=== PATIENT | male | born 1950 | race Caucasian/White ===

== ENCOUNTER 2017-01-11 13:41 | Observation (INO) ==
--- NOTE | 2017-01-11 13:58 | Emergency Department Note ---
General Adult HPI - General Chief complaint: Blood Pressure Problem Stated complaint: Low bp Source: patient, EMS, old records reviewed Mode of arrival: EMS - History of Present Illness HPI Narrative: This patient went to the emergency room in [place] because he was a little dizziness heart rate was up to 117. He had an aortic valve inserted through peripheral access in November. He is on both Coumadin and Plavix. He was noted in [place] to have guaiac positive stool he has no abdominal pain whatsoever. He is received saline resuscitation his blood pressure which was 80 systolic is now 120 systolic and his heart rate is under 100 and he feels much better. Onset (ago): hour(s) - Related Data Home Medications Medication Instructions Recorded Confirmed Amiodarone HCl [Cordarone] 1 each PO Q2D 01/11/17 01/11/17 Atorvastatin [Lipitor] 40 mg PO HS 01/11/17 01/11/17 Budesonide/Formoterol Fumarate 10.2 gm IH BID 01/11/17 01/11/17 [Symbicort 160-4.5 Mcg Inhaler] Carboxymethylcellulose Sodium 1 each OP DAILY 01/11/17 01/11/17 [Refresh Plus] Clopidogrel Bisulfate [Plavix] 75 mg PO DAILY 01/11/17 01/11/17 Digoxin [Lanoxin] 250 mcg PO DAILY 01/11/17 01/11/17 Finasteride [Proscar] 5 mg PO HS 01/11/17 01/11/17 Furosemide [Lasix] 40 mg PO DAILY 01/11/17 01/11/17 Gabapentin [Neurontin] 300 mg PO DAILY 01/11/17 01/11/17 Insulin Glargine, Human [Lantus] 20 unit SQ DAILY 01/11/17 01/11/17 Metoprolol Tartrate [Lopressor] 50 mg PO BID 01/11/17 01/11/17 Nitroglycerin [Nitrostat] 0.4 mg SL Q5M PRN 01/11/17 01/11/17 Oxybutynin Chloride [Ditropan Xl] 5 mg PO DAILY 01/11/17 01/11/17 Potassium Chloride [Kdur] 10 meq PO DAILY 01/11/17 01/11/17 Tamsulosin [Flomax] 0.4 mg PO HS 01/11/17 01/11/17 Warfarin [Coumadin] 5 mg PO DAILY 01/11/17 01/11/17 buPROPion [Wellbutrin] 100 mg PO BID 01/11/17 01/11/17 Allergies Allergy/AdvReac Type Severity Reaction Status Date / Time metformin Allergy Unknown GI Upset Verified 01/11/17 13:46 Review of Systems Constitutional: Denies: fever Eyes: Denies: eye pain ENT ED: Denies: ear pain Cardiovascular: Denies: chest pain Respiratory: Denies: cough Gastrointestinal: Denies: abdominal pain, nausea, vomiting Genitourinary: Denies: urgency Musculoskeletal: Denies: back pain Integumentary: Denies: rash Past Medical History - Past Medical History Medical history: Reports: coronary artery disease, valvular heart disease ( Aortic valve replacement) Surgical history ED: Reports: coronary bypass (CABG) (1993) Physical Exam - General Limitations: no limitations General appearance: alert, in no apparent distress - Head Head exam: atraumatic, normocephalic - Eye Eye exam: Present: normal appearance - ENT ENT exam: normal exam - Neck Neck exam: Present: normal inspection - Chest Chest inspection: Present: normal inspection - Respiratory Respiratory exam: Present: normal lung sounds bilaterally - Cardiovascular Cardiovascular exam: Present: regular rate, normal rhythm, normal heart sounds - Abdominal Exam Abdominal exam: Present: soft. Absent: distention, tenderness - Neurological Exam Neurological exam: Present: alert - Psychiatric Psychiatric exam: Present: normal affect - Skin Skin exam: Present: warm, dry Course Vital Signs Temperature 97.3 F 01/11/17 13:42 Pulse Rate 90 01/11/17 13:42 Respiratory Rate 18 01/11/17 13:42 Blood Pressure 125/75 01/11/17 13:42 Pulse Oximetry (%) 96 01/11/17 13:42 Temperature 97.3 F 01/11/17 13:45 Pulse Rate 70 01/11/17 15:01 Respiratory Rate 19 01/11/17 15:01 Blood Pressure 107/78 01/11/17 15:01 Pulse Oximetry (%) 98 01/11/17 15:01 Medical Decision Making - MDM Narrative Medical decision making narrative: Patient feels quite well now after hydration. However his hemoglobin has dropped from 90 7. 2:09 and 1/2 L of fluid. Discussed the case with the hospitalist and he will be admitted for observation to a telemetry floor. His pro time was only 20.1. - Lab Data Lab results reviewed: Yes I reviewed the patient's lab results. Result diagrams: 01/11/17 14:15 01/11/17 14:15 Lab Results 01/11/17 01/11/17 01/11/17 Range/Units 14:15 14:15 14:15 WBC 9.9 (4.5-11.0) K/mcL RBC 3.28 L (4.50-5.90) M/mcL Hgb 7.9 L (13.5-16.5) g/dL Hct 25.2 L (41.0-55.0) % MCV 76.9 L (80.0-100.0) fL MCH 24.3 L (26.0-34.0) pg MCHC 31.6 (31.0-36.0) g/dL RDW 17.9 H (11.5-14.5) % Plt Count 301 (140-440) K/mcL MPV 7.2 L (7.4-10.4) fL Gran % 72.0 (38.0-78.0) % Lymph % (Auto) 18.6 (15.5-49.0) % [place] % (Auto) 7.9 (1.0-12.0) % Eos % (Auto) 1.2 (0.0-7.0) % Baso % (Auto) 0.3 (0.0-2.0) % Gran # 7.1 (1.8-8.0) K/mcL Lymph # 1.8 (1.5-4.8) K/mcL [place] # 0.8 (0.1-0.9) K/mcL Eos # 0.1 (0.0-0.7) K/mcL Baso # 0 (0.0-0.3) K/mcL PT 20.1 H (11.9-14.5) sec INR 1.7 H (0.9-1.1) Sodium 136 (133-145) mmol/L Potassium 3.8 (3.3-5.1) mmol/L Chloride 101 (96-108) mmol/L Carbon Dioxide 21 L (22-30) mmol/L Anion Gap 14.0 (8-16) BUN 20 (8-23) mg/dl Creatinine 1.2 (0.7-1.2) mg/dl GFR Calculation 62 Glucose 209 H (70-105) mg/dL Calcium 7.9 L (8.6-10.4) mg/dl Total Bilirubin 0.2 (0.0-1.0) mg/dL AST 15 (0-37) U/l ALT 14 (0-40) U/l Alkaline Phosphatase 87 (39-117) U/L Total Protein 6.0 (5.9-8.4) gm/dL Albumin 3.6 (3.2-5.2) gm/dL Globulin 2.4 (2.2-3.7) gm/dL Albumin/Globulin Ratio 1.5 (1.0-2.3) Disposition Clinical Impression: Anemia, GI bleeding Disposition: Xfer As Outpt/Obs ([facility]) Condition: Good Referrals: Chicho Martel PA-C [Primary Care Provider] - Time of Disposition: 15:09
[2017-01-11] MEDS ORDERED: 0.9 % SODIUM CHLORIDE 1,000 ML IV ONE (14:02)
[2017-01-11 14:39] LABS: Basophils # (Auto) 0 K/mcL (0.0-0.3); Basophils % (Auto) 0.3 % (0.0-2.0); Eosinophils # (Auto) 0.1 K/mcL (0.0-0.7); Eosinophils % (Auto) 1.2 % (0.0-7.0); Lymphocytes # (Auto) 1.8 K/mcL (1.5-4.8); Lymphocytes % (Auto) 18.6 % (15.5-49.0); Mean Cell Volume 76.9 fL (80.0-100.0); Mean Corpuscular HGB Conc 31.6 g/dL (31.0-36.0); Mean Corpuscular Hemoglobin 24.3 pg (26.0-34.0); Monocytes # (Auto) 0.8 K/mcL (0.1-0.9); Monocytes % (Auto) 7.9 % (1.0-12.0); Platelet Count 301 K/mcL (140-440); RBC 3.28 M/mcL (4.50-5.90); Red Cell Distribution Width 17.9 % (11.5-14.5)
[2017-01-11 15:01] LABS: ALT/SGPT 14 U/l (0-40); Albumin 3.6 gm/dL (3.2-5.2); Albumin/Globulin Ratio 1.5 (1.0-2.3); Alkaline Phosphatase 87 U/L (39-117); Blood Urea Nitrogen 20 mg/dl (8-23)
[2017-01-11] MEDS ORDERED: IOPAMIDOL 100 ML BOTTLE IV ONE (15:56)
[2017-01-11] MEDS ORDERED: ONDANSETRON ODT 4 MG TABLET SL PRN (16:40)
[2017-01-11] MEDS ORDERED: MAGNESIUM HYDROXIDE 30 ML ORAL.SUSP PO PRN (16:40)
[2017-01-11] MEDS ORDERED: DEXTROSE 50% 50 ML VIAL IV PRN (16:40)
[2017-01-11] MEDS ORDERED: NITROGLYCERIN 0.4 MG TAB.SUBL SL PRN (16:40)
[2017-01-11] MEDS ORDERED: ACETAMINOPHEN 325 MG TABLET PO PRN (16:40)
[2017-01-11] MEDS ORDERED: ALBUTEROL SULFATE 2.5 MG/3 ML NEBULIZER NEB PRN (16:40)
[2017-01-11] MEDS ORDERED: POTASSIUM CHLORIDE 20 MEQ/10 ML VIAL IV ONE (17:01)
[2017-01-11] MEDS: POTASSIUM CHLORIDE 20 MEQ in 0.45 % SODIUM CHLORIDE 1,000 ML IV SCH (17:05)
--- NOTE | 2017-01-11 17:07 | Internal Med History&Physical ---
Medical - H&P: HPI Patient information: Note initiated : 01/11/17 at 4:43 pm Service Date, if different from initiated Date: [] Patient: Ozzy Fox 66 y/o M admitted on for Low bp. History of present illness: Mr. Fox is a 66 year old male with a history of diabetes, coronary disease, who is status post atrial valve replacement with a TAVR procedure in November of this year. he had that surgery with Dr. Ta at [place], and was placed on both Plavix and Coumadin afterwards. He reports they have been letting his INR range from 1-2. he says he has been using oxygen 3 L during the day, with exertion, for the last several months, due to his COPD. He is also been experiencingleg fatigue and weakness when he walks more than a few 100 feet.Today, when he awakened, he checked his blood pressure, and it was low at 86/54. He waited a while and then decided to take a nitroglycerin just in case it was a heart problem. When he took a follow-up blood pressureis blood pressure was about the same, but his heart rate had bumped up to 117. He was feeling lightheaded and dizzy this morning. His took him to the [place] ER where he was found to be hypotensive. He also was noted to have guaiac- positive stool, and a slight drop in his hemoglobin. He was transferred here for further evaluation. He otherwise denies feeling especially differentthan his new baseline, until this morning. He denies fevers or chills, headaches, new eye or ear symptoms sore throat. He has had a persistent somewhat barking coughfor about 3 months now, which has been attributed to his COPD. That is unchanged. He denies chest pain, heaviness, palpitations. He denies nausea or vomiting, diarrhea, or bright red blood per rectum. He says he has had some constipation, for which she uses milk of magnesia. He has not seen blood in any other body fluids. His chronic dysuria, and has trouble sensing when he has to go. he cannot recallif he has a history of GI bleeding, but reports he had his duodenum burst about one year ago, but does not think that is related to ulcers. Past medical history: Coronary artery disease, status post 4 way bypass in 1993 aortic valve stenosis, status post AVR with the TAPVR procedure,mechanical valve , November 2016 COPD, O2 dependent. Past history of ventricular tachycardia and perhaps atrial fibrillation. Reported duodenal rupture BPH Diabetes type 2 peripheral neuropathy Depression Hypertension? Current medications: There is a little uncertainty about diltiazem. Diltiazem 120 mg daily, generally gets routine medications from the [facility] [place] Wellbutrin 100 mg twice a day Warfarin 5 mg daily Plavix 75 mg daily oxybutynin 5 mg daily Tamsulosin 0.4 mg daily at bedtime Finasteride 5 mg daily at bedtime Carboxymethylcellulose drops daily Symbicort 1604.5 one inhalation twice a day Potassium 10 mEq daily Nitroglycerin sublingual when necessary Metoprolol 50 mg twice a day Lasix 40 mg daily Digoxin 250 g daily Atorvastatin 40 mg daily at bedtime Amiodarone, 200 mg,dose unclear, 2 daily Lantus 20 units subcutaneous every morning Gabapentin 300 mg every afternoon patient reports he also takes amitriptyline 10 mg daily at bedtime Oxygen 3 L continuous, while awake milk of magnesia when necessary Allergies: Metformin Family history:Mother with a lung problem, possibly COPD. Father at age 74 "of a broken heart" 6 months after his . 2 siblings are alive and well. Social history: The patient smokedfor approximately 60 pack years, and quit in 2005 He has not drunk alcohol for 30 years. He does occasionally smoke marijuana several times a week. He lives with his . He is retired from various jobs including [employer] he gets his [facility] the [facility]. 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 Medical - H&P: Meds Home Medications Medication Instructions Recorded Confirmed Type Amiodarone HCl [Cordarone] 1 each PO Q2D 01/11/17 01/11/17 History Atorvastatin [Lipitor] 40 mg PO HS 01/11/17 01/11/17 History Budesonide/Formoterol Fumarate 10.2 gm IH BID 01/11/17 01/11/17 History [Symbicort 160-4.5 Mcg Inhaler] Carboxymethylcellulose Sodium 1 each OP DAILY 01/11/17 01/11/17 History [Refresh Plus] Clopidogrel Bisulfate [Plavix] 75 mg PO DAILY 01/11/17 01/11/17 History Digoxin [Lanoxin] 250 mcg PO DAILY 01/11/17 01/11/17 History Finasteride [Proscar] 5 mg PO HS 01/11/17 01/11/17 History Furosemide [Lasix] 40 mg PO DAILY 01/11/17 01/11/17 History Gabapentin [Neurontin] 300 mg PO DAILY 01/11/17 01/11/17 History Insulin Glargine, Human [Lantus] 20 unit SQ DAILY 01/11/17 01/11/17 History Metoprolol Tartrate [Lopressor] 50 mg PO BID 01/11/17 01/11/17 History Nitroglycerin [Nitrostat] 0.4 mg SL Q5M PRN 01/11/17 01/11/17 History Oxybutynin Chloride [Ditropan Xl] 5 mg PO DAILY 01/11/17 01/11/17 History Potassium Chloride [Kdur] 10 meq PO DAILY 01/11/17 01/11/17 History Tamsulosin [Flomax] 0.4 mg PO HS 01/11/17 01/11/17 History Warfarin [Coumadin] 5 mg PO DAILY 01/11/17 01/11/17 History buPROPion [Wellbutrin] 100 mg PO BID 01/11/17 01/11/17 History Allergies Allergy/AdvReac Type Severity Reaction Status Date / Time metformin Allergy Mild GI Upset Verified 01/11/17 17:21 Medical - H&P: Exam - Constitutional Vitals: Temp Pulse Resp BP Pulse Ox 97.3 F 66 20 119/57 97 01/11/17 13:45 01/11/17 15:31 01/11/17 15:31 01/11/17 15:31 01/11/17 15:31 on exam, this is a very pale, elderly man, in no acute distress.Head: Normocephalic, atraumatic. Eyes: PERRLA, EOMI, anicteric. Conjunctiva are quite pale. Ears: TMs and canals are clear. Pharynx: Is clear. Teeth are in fair condition. Neck: Is supple, without obvious lymphadenopathy, JVD, thyromegaly. He does have carotid bruits bilaterally,harsh on the right. cardiac: Shows an irregularly irregular rhythm, with a 2 to 3/6 systolic ejection murmur heard throughout the precordium. I don't hear a definite valve click. No rubs or gallops are noted. there is a well-healed old vertical scar over his sternum. Lungs: Have slightly decreased breath sounds, but otherwise are clear to auscultation, without obvious rales, rhonchi, wheezes. Abdomen: Is soft and nontender, without obvious masses. Bowel sounds are normoactive. -rectal exam done in [place] showed guaiac positive stool. Extremities: Show no cyanosis, clubbing, edema. Pulses are palpable, but somewhat decreased. neurologic exam: Patient is alert and oriented 3. Exam is grossly nonfocal. Skin exam: Does not show any worrisome lesions. Medical - H&P: Reslt - Labs CBC & Chem 7: 01/11/17 14:15 01/11/17 14:15 Labs: Short CBC 01/11/17 Range/Units 14:15 WBC 9.9 (4.5-11.0) K/mcL Hgb 7.9 L (13.5-16.5) g/dL Hct 25.2 L (41.0-55.0) % Plt Count 301 (140-440) K/mcL BMP 01/11/17 14:15 Sodium 136 Potassium 3.8 Chloride 101 Carbon Dioxide 21 L BUN 20 Creatinine 1.2 Glucose 209 H Calcium 7.9 L Liver Function 01/11/17 Range/Units 14:15 Total Bilirubin 0.2 (0.0-1.0) mg/dL AST 15 (0-37) U/l ALT 14 (0-40) U/l Alkaline Phosphatase 87 (39-117) U/L Albumin 3.6 (3.2-5.2) gm/dL pro time is 20, INR 1.7 eKG done on on admission, shows atrial fibrillation at a rate of 88,with occasional aberrent complex LVH with repolarization abnormality. The atrial fibrillation is new January 11, 2017:[place] studies: eKG done in [place] today, shows sinus tachycardia at about 110, with slight ST depression noted in leads V5 V6, possibly repolarization. CBC from [facility]: CBC at 11:46 AM: White blood cell count 9000, hemoglobin 9.0, hematocrit 28.6 cMP showed glucose of 305 B1 24, creatinine 1.5 Troponinwas normal at 0.03 CK-MB was normal TSH is normal at 0.88Pro time was 17, INR 1.6 Medical - H&P: A/P (1) Atrial fibrillation Current visit: Yes Status: Acute (2) Anticoagulant long-term use Current visit: Yes Status: Acute (3) DM2 (diabetes mellitus, type 2) Current visit: Yes Status: Acute (4) COPD (chronic obstructive pulmonary disease) Current visit: Yes Status: Acute (5) CAD (coronary artery disease), [place] coronary artery Current visit: Yes Status: Acute (6) BPH (benign prostatic hyperplasia) Current visit: Yes Status: Acute (7) Depression Current visit: Yes Status: Acute (8) History of tobacco abuse Current visit: Yes Status: Acute (9) Microcytic anemia Current visit: Yes Status: Acute - Narrative A/P Narrative: #1. Hypotension and dizziness this patient presents with hypotension and tachycardia, which seemed to improve after IV hydration. Differential diagnosis includes dehydration, GI bleed with acute blood loss anemia, other acute cardiac or pulmonary event, medication side effect,acute infection. -the patient's blood pressure has stabilized since receiving IV fluids. -He is now admitted to telemetry/observation for monitoring. We will check every 4 hours hemoglobins, and monitor on telemetry.. After the next check, I will try to touch base with GI and cardiology,and to assess if we need to hold his anticoagulation, and to see whether he needs further GI workup. He is not having any obvious GI bleed presentation otherwise. -check d-dimer, BNP,troponin regarding sudden onset of hypotension, tachycardia , dizziness. #2. Cardiac. -Patient presents with atrial fibrillation which may be new, although he is unsure. Ideally, we will continue with warfarin therapy, and push that closer to a therapeutic level. However, since he is also on Plavix, I will need to review that with cardiology as well. -check screening troponin, BNP. -Monitor on telemetry. Currently rate is well controlled. -continue amiodarone. Check digoxin level. -continue atorvastatin. Hold Lasix for now. Resume warfarin and Plavix when able. Continue when necessary nitroglycerin. Continue metoprolol. 33. Microcytic anemia. per our old records previous H&H has been a low back in November 2014 but he did not have microcytosis at that time. His last colonoscopy was about 11 years ago. He also has a mechanical heart valve, so there is a possibility of shearing. He could also potentially have hemolysis. -Check iron levels also. tSH was normal today. #4. CODE STATUS: Full code. #5. DVT prophylaxis: We will likely continue Plavix and warfarin, after touching base with specialists. #6. Pulmonary. -this patient apparently has significant COPD, and is oxygen dependent. Add albuterol and budesonide nebs, when necessary. Continue oxygen when necessary. Check d-dimer, and view of his presentation. INR is also subtherapeutic. -this patient also has a fairly significant cough, for uncertain reason. We will check a chest x-ray. He may require pulmonary follow-up. 37. Endocrine. -Type 2 diabetes. This sounds well controlled. Continue Lantus, and add Accu- Cheks with when necessary sliding scale coverage. #8. Hypocalcemia.-Check ionized calcium. #9. BPH.Continue oxybutynin and tamsulosin and Proscar. 310. Neurologic. Continue gabapentin for peripheral neuropathy. 311. Psychiatric. -Continue Wellbutrin. This visit so far, has taken approximately 70 minutes, to review the patient's outside records, as well as our EMR records, interview and examine the patient order and review more tests, and write orders. I will also be placing calls to both GI and cardiology later today.
[2017-01-11] MEDS: PANTOPRAZOLE 40 MG VIAL IV SCH (17:32)
[2017-01-11] MEDS: INSULIN LISPRO 1 UNIT/0.01 ML UNIT SQ SCH ×2 (17:33→22:12)
[2017-01-11 17:46] LABS: Hemoglobin A1C 8.9 % HGB (4.0-6.0)
[2017-01-11 18:40] LABS: Ionized Calcium 1.09 mmol/L (1.16-1.32)
--- NOTE | 2017-01-11 20:48 | XRay Report ---
CLINICAL INFORMATION: Hypertension atrial fibrillation recent aortic valve replacement COMPARISON: 09/19/2016 FINDINGS: The heart is mildly enlarged, but unchanged. Aortic valve prosthesis in stable satisfactory position. Mediastinum and pulmonary vessels are normal. Lungs are clear. No effusions. IMPRESSION: Mild stable cardiomegaly - no acute disease Interpreted and Authenticated by: Chris Pack 01/11/17
[2017-01-11] MEDS ORDERED: BUDESONIDE 0.5 MG/2 ML AMPUL.NEB NEB SCH (21:00)
[2017-01-11] MEDS ORDERED: TAMSULOSIN 0.4 MG CAPSULE PO SCH (21:00)
[2017-01-11] MEDS ORDERED: ATORVASTATIN 20 MG TABLET PO SCH (21:00)
[2017-01-11] MEDS ORDERED: FINASTERIDE 5 MG TABLET PO SCH (21:00)
[2017-01-11] MEDS: BUDESONIDE 0.5 MG/2 ML AMPUL.NEB NEB SCH (21:43)
[2017-01-11] MEDS: METOPROLOL TARTRATE 50 MG TABLET PO SCH (22:13)
[2017-01-11] MEDS: buPROPion 100 MG TABLET PO SCH (22:26)
[2017-01-12] MEDS ORDERED: CALCIUM CHLORIDE 1,000 MG/10 ML SYRINGE IV ONE (02:17)
[2017-01-12] MEDS ORDERED: 0.9 % SODIUM CHLORIDE 250 ML IV SCH (02:30)
[2017-01-12 04:05] LABS: ALT/SGPT 12 U/l (0-40); Albumin 3.3 gm/dL (3.2-5.2); Albumin/Globulin Ratio 1.4 (1.0-2.3); Alkaline Phosphatase 80 U/L (39-117); Bilirubin,Direct < 0.2 mg/dL (0.0-0.3); Blood Urea Nitrogen 18 mg/dl (8-23); Gamma Glutamyl Transpeptidase 20 U/L (8-61); Magnesium 1.9 mg/dL (1.6-2.5); Uric Acid 4.9 mg/dL (2.5-8.0)
[2017-01-12] MEDS: PANTOPRAZOLE 40 MG VIAL IV SCH (08:12)
[2017-01-12] MEDS: METOPROLOL TARTRATE 50 MG TABLET PO SCH (08:36)
[2017-01-12] MEDS: INSULIN LISPRO 1 UNIT/0.01 ML UNIT SQ SCH ×3 (08:37→17:59)
[2017-01-12] MEDS ORDERED: EYE OP SCH (09:00)
[2017-01-12] MEDS ORDERED: CARBOXYMETHYLCELLULOSE SODIUM OP SCH (09:00)
[2017-01-12] MEDS ORDERED: OXYBUTYNIN CHLORIDE 5 MG TAB.XL.24H PO SCH (09:00)
[2017-01-12] MEDS ORDERED: FUROSEMIDE 40 MG TABLET PO SCH (09:00)
[2017-01-12] MEDS ORDERED: INSULIN GLARGINE, HUMAN 1 UNIT/0.01 ML SQ SCH (09:00)
[2017-01-12] MEDS ORDERED: POTASSIUM CHLORIDE 10 MEQ TABLET PO SCH (09:00)
[2017-01-12] MEDS ORDERED: GABAPENTIN 300 MG CAPSULE PO SCH (09:00)
[2017-01-12] MEDS ORDERED: AMIODARONE HCL 200 MG TABLET PO SCH (09:00)
[2017-01-12] MEDS: POTASSIUM CHLORIDE 20 MEQ in 0.45 % SODIUM CHLORIDE 1,000 ML IV SCH (09:26)
[2017-01-12] MEDS: BUDESONIDE 0.5 MG/2 ML AMPUL.NEB NEB SCH (09:32)
[2017-01-12] MEDS: buPROPion 100 MG TABLET PO SCH ×2 (10:04→18:00)
[2017-01-12] MEDS ORDERED: IRON SUCROSE COMPLEX 100 MG/5 ML VIAL IV ONE (10:21)
[2017-01-12] MEDS ORDERED: CALCIUM GLUCONATE 4.65 MEQ/10 ML VIAL IV ONE (12:21)
[2017-01-12] MEDS ORDERED: CALCIUM GLUCONATE 7 MEQ in DEXTROSE 5% IN WATER 50 ML IV ONE (13:00)
[2017-01-12] MEDS ORDERED: ACETAMINOPHEN 325 MG TABLET PO ONE (13:16)
[2017-01-12] MEDS ORDERED: DIGOXIN 125 MCG TABLET PO SCH (14:00)
--- NOTE | 2017-01-12 15:56 | Cat Scan Report ---
y mild emphysema is present in both upper lobes. There is thickening of the interlobular septa posteriorly in both upper lobes, right greater than left. Also subtle groundglass alveolar opacities posteriorly in the right upper lobe contiguous with the major fissure. Contiguous with the major fissure in the left side, in the superior segment of the left lower lobe there is a plaque-like 3 x 6 x 8 mm nodular density. This was not present on 10/16/16. This is probably focal inflammation or atelectasis. This is unlikely a neoplasm. No other suspicious mass is seen in either lung. There is mild thickening of the bronchi in both lower lobes and mild atelectasis is present in the posterior basal segments of both lower lobes. There is no pleural effusion. Patient has a prosthetic aortic valve. Calcified plaques in the coronary arteries and the patient's had prior coronary bypass surgery. Left ventricle is mildly dilated. The aorta is normal in caliber. There are scattered plaques along the wall. No adenopathy is present. Impression: No evidence of pulmonary emboli Mild emphysema and bronchitis ICU nurse was called with results Mild atelectasis posteriorly in the upper and lower lobes bilaterally. Atherosclerotic coronary artery disease and mild cardiomegaly Interpreted and Authenticated by: Joe Figueroa 01/12/17
--- NOTE | 2017-01-12 15:57 | XRay Report ---
HISTORY: Reason for Exam:hypotention, tachypnea FINDINGS: The lungs are clear. Heart is mildly enlarged. There is no congestive heart failure or pleural effusion. There is a prosthetic aortic valve. Coronary artery bypass surgery is been performed and there are clips in the mediastinum. There is no mediastinal widening or adenopathy. Comparison with the prior exam from 01/11/17 shows no significant change. IMPRESSION: No acute abnormality Interpreted and Authenticated by: Joe Figueroa 01/12/17
--- NOTE | 2017-01-12 18:15 | Discharge Summary ---
Medical - DS: Prov Patient information: Note initiated : 01/12/17 at 6:09 pm Service Date, if different from initiated Date: [] Patient: Ozzy Fox 66 y/o M admitted on 01/11/17 for Low bp. Chief Complaint: [] Date of admission: 01/11/17 15:55 Discharge date: 01/12/17 Primary care physician: Chicho Martel Admitting clinician: Teresa Baumann Consults: 01/12/17 02:35 Consult to Physician [CONS] Routine Comment: telephone consult: Consulting Provider: Vicente Tamayo Reason For Exam: Physician to Consult Attending physician on discharge: Teresa Baumann Medical - DS: Meds - Discharge Medications Prescriptions: Pantoprazole Sodium [Protonix] 40 mg PO QAMAC #30 tablet. Active and Home Medications: Home Medications Amiodarone HCl [Cordarone] 1 each PO Q2D 01/11/17 [History Confirmed 01/11/17 Last Taken Unknown] Atorvastatin [Lipitor] 40 mg PO HS 01/11/17 [History Confirmed 01/11/17 Last Taken Unknown] Budesonide/Formoterol Fumarate [Symbicort 160-4.5 Mcg Inhaler] 10.2 gm IH BID [History Confirmed 01/11/17 Last Taken Unknown] Carboxymethylcellulose Sodium [Refresh Plus] 1 each OP DAILY 01/11/17 [History Confirmed 01/11/17 Last Taken Unknown] Clopidogrel Bisulfate [Plavix] 75 mg PO DAILY 01/11/17 [History Confirmed Last Taken Unknown] Digoxin [Lanoxin] 250 mcg PO DAILY 01/11/17 [History Confirmed 01/11/17 Last Taken Unknown] Finasteride [Proscar] 5 mg PO HS 01/11/17 [History Confirmed 01/11/17 Last Taken Unknown] Furosemide [Lasix] 40 mg PO DAILY 01/11/17 [History Confirmed 01/11/17 Last Taken Unknown] Gabapentin [Neurontin] 300 mg PO DAILY 01/11/17 [History Confirmed 01/11/17 Last Taken Unknown] Insulin Glargine, Human [Lantus] 20 unit SQ DAILY 01/11/17 [History Confirmed Last Taken Unknown] Metoprolol Tartrate [Lopressor] 50 mg PO BID 01/11/17 [History Confirmed Last Taken Unknown] Nitroglycerin [Nitrostat] 0.4 mg SL Q5M PRN 01/11/17 [History Confirmed Last Taken Unknown] Oxybutynin Chloride [Ditropan Xl] 5 mg PO DAILY 01/11/17 [History Confirmed Last Taken Unknown] Potassium Chloride [Kdur] 10 meq PO DAILY 01/11/17 [History Confirmed 01/11/17 Last Taken Unknown] Tamsulosin [Flomax] 0.4 mg PO HS 01/11/17 [History Confirmed 01/11/17 Last Taken Unknown] Warfarin [Coumadin] 5 mg PO DAILY 01/11/17 [History Confirmed 01/11/17 Last Taken Unknown] buPROPion [Wellbutrin] 100 mg PO BID 01/11/17 [History Confirmed 01/11/17 Last Taken Unknown] Medical - DS: Hosp Hospital course: Mr. Fox is a 66 year old male January 11, 2017:History of present illness: Mr. Fox is a 66 year old male with a history of diabetes, coronary disease, who is status post atrial valve replacement with a TAVR procedure in November of this year. he had that surgery with Dr. Ta at [facility], and was placed on both Plavix and Coumadin afterwards. He reports they have been letting his INR range from 1-2. he says he has been using oxygen 3 L during the day, with exertion, for the last several months, due to his COPD. He is also been experiencingleg fatigue and weakness when he walks more than a few 100 feet.Today, when he awakened, he checked his blood pressure, and it was low at 86/54. He waited a while and then decided to take a nitroglycerin just in case it was a heart problem. When he took a follow-up blood pressureis blood pressure was about the same, but his heart rate had bumped up to 117. He was feeling lightheaded and dizzy this morning. His took him to the [facility] where he was found to be hypotensive. He also was noted to have guaiac- positive stool, and a slight drop in his hemoglobin. He was transferred here for further evaluation. He otherwise denies feeling especially differentthan his new baseline, until this morning. He denies fevers or chills, headaches, new eye or ear symptoms sore throat. He has had a persistent somewhat barking coughfor about 3 months now, which has been attributed to his COPD. That is unchanged. He denies chest pain, heaviness, palpitations. He denies nausea or vomiting, diarrhea, or bright red blood per rectum. He says he has had some constipation, for which she uses milk of magnesia. He has not seen blood in any other body fluids. His chronic dysuria, and has trouble sensing when he has to go. he cannot recallif he has a history of GI bleeding, but reports he had his duodenum burst about one year ago, but does not think that is related to ulcers. january 12: the patient was admitted and given IV fluids. Follow-up hemoglobin remained low, so the patient was transfused 2 units of packed red blood cells, based on his history of coronary disease. Hemoglobin is now up to 11, with hematocrit of 34, and has been stable since this morning. he has not had any signs of overt GI bleeding. He has not had dark stools or particularly soft stools,abdominal pain ,hematemesis. iron studies were done, and showed markedly low iron saturation of 4%, with normal TIBC. Iron level is still pending. BNP was mildly elevated at 558. Echocardiogram was not repeatedas I think this is due when he follows up with cardiology. d-dimer was positive, and since his Coumadin level was subtherapeutic on arrival , we did do a CT angiogram of the chest.his did not find evidence for PE. he patient states he is feeling much better, and stronger today. He is less short of breath. Hypotension has resolved. He does continue to have an intermittent barking type cough. On exam,vital signs are stable,with blood pressure of 145/65 O2 saturation is 92% on 2 L. Neck is supple without obvious JVD. Cardiac exam shows a slightly irregular rhythm, with 3/6 systolic ejection murmur. Valve click is heard today. Lungs have a few scattered crackles, but are otherwise clear.Abdomen is soft and nontender. Extremities show no edema. Neurologic exam is grossly nonfocal. assessment and plan: #1. Hypotension and dizziness this patient presents with hypotension and tachycardia, which resolved after IV hydration. e had significant anemia, but no obvious signs of active GI bleeding. hemoglobin has improved, and is stable, since being transfused 2 units of packed red blood cells. The patient also received IV iron as it appears his iron levels are extraordinarily low. #2. Cardiac. -Patient presents with atrial fibrillation which may be new, although he is unsure. Ideally, we will continue with warfarin therapy, and push that closer to a therapeutic level. However, since he is also on Plavix, and he will need cardiology follow-up to review these issues. -troponin was negative for acute cardiac event. EKG did show atrial fibrillation with a controlled rate. -continue amiodarone. -digoxin level was low at less than 0.3. Continue digoxin. -continue atorvastatin. resume other home medications. #3. Microcytic anemia. per our old records previous H&H has been a low back in November 2014 but he did not have microcytosis at that time. His last colonoscopy was about 11 years ago. He also has a mechanical heart valve, so there is a possibility of shearing. He could also potentially have hemolysis. - tSH was normal today. -GI follow-up. this case was reviewed with Dr. Duffy from GI and he will call to arrange follow-up this week. #4. CODE STATUS: Full code. #5. DVT prophylaxis: ontinue Plavix and warfarin. #6. Pulmonary. -this patient apparently has significant COPD, and is oxygen dependent. Add albuterol and budesonide nebs, when necessary. Continue oxygen when necessary. --dimer was positive, so CT angiogram was done. That does show COPD, but does not show PE. -this patient also has a fairly significant cough, for uncertain reason. We will check a chest x-ray. He may require pulmonary follow-up. 37. Endocrine. -Type 2 diabetes. This sounds well controlled. Continue Lantus, and add Accu- Cheks with when necessary sliding scale coverage. #8. Hypocalcemia.-Check ionized calcium. #9. BPH.Continue oxybutynin and tamsulosin and Proscar. 310. Neurologic. Continue gabapentin for peripheral neuropathy. 311. Psychiatric. -Continue Wellbutrin. #12. Ionized calcium level was low. Patient was given IV calcium gluconate. approximately 45 minutes was spent today, reviewing patient's test results, ordering blood, interviewing and examining the patient, reviewing his case with GI, and writing orders. Discharge diagnosis: hypotension and tachycardia,secondary to severe anemia Secondary discharge diagnosis: coronary disease, status post recent aortic valve replacement,long-term anticoagulation, heme positive stoolCOPD - Time Spent with Patient Total time spent providing and/or coordinating discharge services: Medical - DS: Exam - Constitutional Vitals: Vital Signs Temp Pulse Pulse Resp BP Pulse Ox 01/12/17 15:56 97.2 F 69 18 145/65 92 01/12/17 12:00 97.6 F 63 18 143/68 99 01/12/17 09:32 60 18 01/12/17 08:00 97.9 F 16 140/64 96 01/12/17 03:47 98.2 F 12 123/58 99 01/11/17 21:51 67 16 97 01/11/17 21:50 97 Intake and Output 01/12/17 01/12/17 01/12/17 05:59 13:59 21:59 Intake Total 297 / 297 1628 / 2308 423.2955 / 765.0537 Output Total 700 / 700 2300 / 2300 1350 / 1350 Balance -403 / -403 -672 / -672 -584.9463 / -584.9463 Intake: IV 1010 / 1010 65.0537 / 65.0537 Calcium Gluconate 7 Meq 65.0537 / 65.0537 In Dextrose 5% in Water 50 ml @ 130.107 mls/hr IV ONCE ONE Rx#:[id number] Potassium Chloride 20 Meq 1010 / 1010 In Sodium Chloride 0.45% 1,000 ml @ 75 mls/hr IV .[id number] [facility] Rx#: [id number] Oral 320 / 320 700 / 700 Blood Product 297 / 297 298 / 298 Output: Urine Catheter Amount 750 / 750 Void Amount 700 / 700 2300 / 2300 600 / 600 Other: Meal Breakfast Dinner Percent of Meal Consumed 100% 100% # Voids 2 Medical - DS: Data Labs on day of discharge: Labs from last 24 hours 01/12/17 01/12/17 01/12/17 17:33 10:57 02:54 Hgb 11.0 L Pending Hct 34.3 L Pending PT INR Sodium 135 Potassium 4.1 Chloride 103 Carbon Dioxide 22 Anion Gap 10.0 BUN 18 Creatinine 1.2 GFR Calculation 62 Glucose 217 H Uric Acid 4.9 Calcium 8.0 L Ionized Calcium Susan Phosphorus 3.5 Magnesium 1.9 Iron TIBC Unsat Iron Binding Transferrin % Sat Total Bilirubin 0.2 Direct Bilirubin < 0.2 GGT 20 AST 14 ALT 12 Alkaline Phosphatase 80 Lactate Dehydrogenase 223 Troponin T Total Protein 5.7 L Albumin 3.3 Globulin 2.4 Albumin/Globulin Ratio 1.4 Triglycerides 145 01/12/17 01/12/17 01/12/17 02:54 02:54 02:54 Hgb 10.4 L Hct 33.0 L PT 20.3 H INR 1.7 H Sodium Potassium Chloride Carbon Dioxide Anion Gap BUN Creatinine GFR Calculation Glucose Uric Acid Calcium Ionized Calcium Susan Phosphorus Magnesium Iron TIBC Unsat Iron Binding Transferrin % Sat Total Bilirubin Direct Bilirubin GGT AST ALT Alkaline Phosphatase Lactate Dehydrogenase Troponin T < 0.01 Total Protein Albumin Globulin Albumin/Globulin Ratio Triglycerides 01/11/17 01/11/17 17:43 17:43 Hgb Hct PT INR Sodium Potassium Chloride Carbon Dioxide Anion Gap BUN Creatinine GFR Calculation Glucose Uric Acid Calcium Ionized Calcium Susan 1.09 L Phosphorus Magnesium Iron TNP 16 L TIBC 321 Unsat Iron Binding TNP 305 Transferrin % Sat 4 L Total Bilirubin Direct Bilirubin GGT AST ALT Alkaline Phosphatase Lactate Dehydrogenase Troponin T Total Protein Albumin Globulin Albumin/Globulin Ratio Triglycerides ionized calcium level is low at 1.09 BNP was elevated at 558 Digoxin level was low at less than 0.3 nasal MRSA screen was positive. CT angiogram of the chest showed mild emphysema and both upper lobes, and ground glass alveolar opacities in the right upper lobe Prosthetic aortic valve is seen as well as calcified plaques in the coronary arteries. No pulmonary emboli were seen. There is mild atatelectasis posteriorly in the upper and lower lobes. EKG shows atrial fibrillation at a rate of 88. hest x-rayshowed mild cardiomegaly but no CHF. It did show prosthetic aortic valve. Also clips from previous bypass surgery. Medical - DS: A/P - Patient/Caregiver Discharge Instructions Activity: increase activity as tolerated, wear oxygen at all times Diet: Cardiac Additional Instructions: #1. you presented with severe anemia. We transfused 2 units of red blood cells He did test positive for blood in your stool. We would like you to follow upwith the subscription clerk, Dr. Vicente Duffy. His phone number is [phone], and his address is [address] [place] [address]. [address] and [facility]. You can call his office tomorrow, and tell his staff that he told me that he can probably get you in for endoscopy/colonoscopy on Thursday. #2. Continue current medications, including both the plavix and warfarin. however, please return if you have any signs of bleeding or recurrent low blood pressures, shortness of breath black tarry stools. I will also prescribe an ulcer medication,to help prevent/heal any stomach ulcers. #3.you also were in an irregular cardiac rhythm, called atrial fibrillation, when you arrived. Please follow-up with your heart doctor as soon as possible so he can evaluate if he wants to rearrange your medications. Prescriptions: Pantoprazole Sodium [Protonix] 40 mg PO QAMAC #30 tablet.dr - Problem Maintenance (1) Atrial fibrillation Status: Acute (2) Anticoagulant long-term use Status: Chronic (3) DM2 (diabetes mellitus, type 2) Status: Chronic (4) COPD (chronic obstructive pulmonary disease) Status: Chronic (5) CAD (coronary artery disease), [place] coronary artery Status: Chronic (6) BPH (benign prostatic hyperplasia) Status: Chronic (7) Depression Status: Chronic (8) History of tobacco abuse Status: Resolved (9) Microcytic anemia Status: Acute - Follow up Plan Follow up with: Chicho Martel PA-C [Primary Care Provider] - Vicente Tamayo MD [Physician] - Bunny Bolton MD [Physician] - Leif Ta [Referring] - Disposition: Home, Self-Care Prognosis: Good Rehab Potential: Good I certify that the patient requires SNF services: No Overall status at discharge: patient is progressing back to baseline Medical - DS: Qual - VTE Deep Vein Thrombosis/Pulmonary Embolism Present on Admission: No
== END 2017-01-12 19:05 | disposition home or self-care (01) ==
LOC: ED 13:41 → ICU 15:54 → INTOOBSV 18:06 → ICU 20:04
PROVIDERS: ADMIT Internal Medicine; ATTEND Internal Medicine

== ENCOUNTER 2018-07-18 10:55 | Inpatient (IN) ==
[2018-07-18] MEDS ORDERED: 0.9 % SODIUM CHLORIDE 1,000 ML IV ONE (11:03)
--- NOTE | 2018-07-18 11:33 | Emergency Department Note ---
GI Bleed HPI - General Chief complaint: Rectal Bleed Stated complaint: loose black stools, dizziness, low BP Time Seen by Provider: 07/18/18 11:25 Source: patient Mode of arrival: wheelchair Limitations: no limitations - History of Present Illness HPI Narrative: This patient woke up very dizzy today and has passed some black stools. He has no epigastric pain or tenderness but he did have a duodenal rupture 4 years ago. He had colonoscopy several months ago that was unremarkable. He does take Eliquis and has had a previous valve replacement. His list also include includes Plavix but is not clear that he is taking both Eliquis and Plavix. - Related Data Home Medications Medication Instructions Recorded Confirmed Amiodarone HCl [Cordarone] 1 each PO Q2D 01/11/17 07/14/18 Atorvastatin [Lipitor] 40 mg PO HS 01/11/17 07/14/18 Budesonide/Formoterol Fumarate 10.2 gm IH BID 01/11/17 07/14/18 [Symbicort 160-4.5 Mcg Inhaler] Carboxymethylcellulose Sodium 1 each OP DAILY 01/11/17 07/14/18 [Refresh Plus] Clopidogrel Bisulfate [Plavix] 75 mg PO DAILY 01/11/17 06/30/18 Digoxin [Lanoxin] 250 mcg PO DAILY 01/11/17 06/30/18 Finasteride [Proscar] 5 mg PO HS 01/11/17 07/14/18 Furosemide [Lasix] 40 mg PO DAILY 01/11/17 07/14/18 Gabapentin [Neurontin] 300 mg PO DAILY 01/11/17 07/14/18 Insulin Glargine, Human [Lantus] 20 unit SQ DAILY 01/11/17 07/14/18 Metoprolol Tartrate [Lopressor] 50 mg PO BID 01/11/17 07/14/18 Nitroglycerin [Nitrostat] 0.4 mg SL Q5M PRN 01/11/17 07/14/18 Oxybutynin Chloride [Ditropan Xl] 5 mg PO DAILY 01/11/17 07/14/18 Potassium Chloride [Kdur] 10 meq PO DAILY 01/11/17 06/30/18 Tamsulosin [Flomax] 0.4 mg PO HS 01/11/17 06/30/18 buPROPion [Wellbutrin] 100 mg PO BID 01/11/17 07/14/18 Apixaban [Eliquis] 10 mg PO DAILY 06/30/18 07/14/18 Previous Rx's Medication Instructions Recorded Accu-Chek 1 each FS ACHS strip 01/12/17 Pantoprazole Sodium [Protonix] 40 mg PO QAMAC #30 tablet. 01/12/17 Allergies Allergy/AdvReac Type Severity Reaction Status Date / Time metformin AdvReac Mild GI Upset Verified 07/18/18 10:58 Review of Systems All systems ED: reviewed and negative except as stated. Past Medical History - Past Medical History Medical history: Reports: atrial fibrillation, COPD, coronary artery disease, DM , valvular heart disease (Aortic valve replacement), other (DVT, duodenal rupture) Surgical history ED: Reports: appendectomy, coronary bypass (CABG) (1993) - Social History smoking status: Never smoker Physical Exam Limitations: no limitations General appearance: alert Head: atraumatic Eye: Present: normal appearance ENT: normal exam Neck: Present: normal inspection Chest: Present: normal inspection Respiratory: Present: normal lung sounds bilaterally Cardiovascular: Present: regular rate, normal rhythm, normal heart sounds Abdominal: Present: soft. Absent: distention, tenderness Rectal: Present: heme (+) stool, black stool Neurological: Present: alert Psychiatric: Present: normal affect, normal mood Skin: Present: warm, dry, intact Course Vital Signs Temperature 96.7 F L 07/18/18 10:56 Pulse Rate 57 L 07/18/18 10:56 Respiratory Rate 20 07/18/18 10:56 Blood Pressure 92/50 07/18/18 10:56 Pulse Oximetry (%) 99 07/18/18 10:56 Temperature 96.7 F L 07/18/18 10:56 Pulse Rate 57 L 07/18/18 12:34 Respiratory Rate 17 07/18/18 12:16 Blood Pressure 95/48 07/18/18 12:31 Pulse Oximetry (%) 96 07/18/18 12:34 GI Bleed - [facility] Narrative Medical decision making narrative: Patient's hemoglobin is 6.9 his blood pressure was still in the 90s after a liter of fluid so a second liter was started. Also started IV Protonix and an IV Protonix drip. I discussed the case with Dr. Yarbrough and Dr. Tati and the patient will be admitted to receive a 2 unit blood transfusion and then have endoscopy. Ironically the patient just had endoscopy last week with Dr. Chow. - Lab Data Lab results reviewed: Yes I reviewed the patient's lab results. Result diagrams: 07/18/18 11:03 07/18/18 11:03 Lab Results 07/18/18 07/18/18 Range/Units 11:03 11:03 WBC 10.4 (4.5-11.0) K/mcL RBC 2.91 L (4.50-5.90) M/mcL Hgb 6.9 L* (13.5-16.5) g/dL Hct 22.2 L (41.0-55.0) % POC Hct 22.0 L (41.0-55.0) % MCV 76.1 L (80.0-100.0) fL MCH 23.8 L (26.0-34.0) pg MCHC 31.3 (31.0-36.0) g/dL RDW 18.4 H (11.5-14.5) % Plt Count 272 (140-440) K/mcL MPV 8.4 (7.4-10.4) fL Gran % 78.8 H (38.0-78.0) % Lymph % (Auto) 13.4 L (15.5-49.0) % Rice % (Auto) 6.7 (1.0-12.0) % Eos % (Auto) 0.8 (0.0-7.0) % Baso % (Auto) 0.3 (0.0-2.0) % Gran # 8.2 H (1.8-8.0) K/mcL Lymph # (Auto) 1.4 L (1.5-4.8) K/mcL Rice # (Auto) 0.7 (0.1-0.9) K/mcL Eos # (Auto) 0.1 (0.0-0.7) K/mcL Baso # (Auto) 0 (0.0-0.3) K/mcL POC Sodium 136 (133-145) mmol/L Sodium 132 L (133-145) mmol/L POC Potassium 4.8 (3.3-5.1) mmol/L Potassium 5.0 (3.3-5.1) mmol/L POC Chloride 102 (96-108) mmol/L Chloride 96 (96-108) mmol/L Carbon Dioxide 15 L (22-30) mmol/L POC Total CO2 16 L (22-30) mmol/L Anion Gap 21.0 H (8-16) POC BUN 30 H (8-23) mg/dl BUN 33 H (8-23) mg/dl Creatinine 1.5 H (0.7-1.2) mg/dl POC Creatinine 1.4 H (0.7-1.2) mg/dl GFR Calculation 47 Glucose 430 H (70-105) mg/dL POC Glucose 417 H (70-105) mg/dL Calcium 8.8 (8.6-10.4) mg/dl POC WB Ioniz Calcium 1.16 (1.16-1.32) mmol/L Total Bilirubin 0.2 (0.0-1.0) mg/dL AST 16 (0-37) U/l ALT 13 (0-40) U/l Alkaline Phosphatase 82 (39-117) U/L Total Protein 6.1 (5.9-8.4) gm/dL Albumin 3.9 (3.2-5.2) gm/dL Globulin 2.2 (2.2-3.7) gm/dL Albumin/Globulin Ratio 1.8 (1.0-2.3) Disposition Pt seen by [facility]/PA only: No Clinical Impression: Upper GI bleed Disposition: Xfer As Inpt ([facility]) Condition: Fair Referrals: Jhonatan Heller MD [Primary Care Provider] - Time of Disposition: 12:52
[2018-07-18 12:03] LABS: Basophils # (Auto) 0 K/mcL (0.0-0.3); Basophils % (Auto) 0.3 % (0.0-2.0); Eosinophils # (Auto) 0.1 K/mcL (0.0-0.7); Eosinophils % (Auto) 0.8 % (0.0-7.0); Granulocytes % (Auto) 78.8 % (38.0-78.0); Lymphocytes # (Auto) 1.4 K/mcL (1.5-4.8); Lymphocytes % (Auto) 13.4 % (15.5-49.0); Mean Cell Volume 76.1 fL (80.0-100.0); Mean Corpuscular HGB Conc 31.3 g/dL (31.0-36.0); Mean Corpuscular Hemoglobin 23.8 pg (26.0-34.0); Monocytes # (Auto) 0.7 K/mcL (0.1-0.9); Monocytes % (Auto) 6.7 % (1.0-12.0); Platelet Count 272 K/mcL (140-440); RBC 2.91 M/mcL (4.50-5.90); Red Cell Distribution Width 18.4 % (11.5-14.5)
[2018-07-18] MEDS ORDERED: 0.9 % SODIUM CHLORIDE 250 ML IV SCH ×2 (12:15→15:57)
[2018-07-18 12:22] LABS: ALT/SGPT 13 U/l (0-40); Albumin 3.9 gm/dL (3.2-5.2); Albumin/Globulin Ratio 1.8 (1.0-2.3); Alkaline Phosphatase 82 U/L (39-117); Blood Urea Nitrogen 33 mg/dl (8-23)
[2018-07-18] MEDS ORDERED: PANTOPRAZOLE 40 MG VIAL IV ONE (12:48)
[2018-07-18] MEDS ORDERED: PANTOPRAZOLE 80 MG in 0.9 % SODIUM CHLORIDE 100 ML IV SCH ×2 (13:00→23:00)
[2018-07-18] MEDS ORDERED: LACTATED RINGERS 1,000 ML IV ONE (13:08)
[2018-07-18] MEDS ORDERED: LACTATED RINGERS 1,000 ML IV SCH (14:45)
--- NOTE | 2018-07-18 15:01 | Internal Med History&Physical ---
Medical - H&P: HPI Patient information: Note initiated : 07/18/18 at 2:55 pm Service Date, if different from initiated Date: [] Patient: Ozzy oFx a 68 y/o M admitted on for loose black stools, dizziness , low BP. Chief Complaint: light headed, dark stools History of present illness: Mr. Fox is a 68 year old M with a history of type 2 diabetes mellitus, paroxysmal atrial fibrillation (on Eliquis), coronary artery disease, peripheral arterial disease, chronic anemia who presents with lightheadedness and dark stools. Patient has been worked up for anemia in the last month. He had a colonoscopy on 07/01/2018 which was essentially normal. On 07/14/18 he had an EGD, which time he had a gastric polyp removed, also had biopsies looking for evidence of malabsorption or celiac. That was on Thursday. About Thursday the patient started developing dark stools that were "one cut above tar" in consistency. Subsequently he started feeling lightheaded over the last 2-3 days. This morning while in [employer] sitting up in a pew, was dizzy while at rest (lightheaded), and everyone commented that he was looking very pale. He had further dark stools while there, prior to presenting to the emergency department. In the emergency department, initial labs show hemoglobin of 6.9, he was heme positive. Further history, the patient takes Eliquis twice daily, he continued to take that during his endoscopy procedures. He also takes 81 mg aspirin daily. He does not use clopidogrel or other antiplatelet agents, does not use nonsteroidals. He does take 2 acetaminophen scheduled 3 times a day. Patient is being admitted for treatment of likely upper gastrointestinal hemorrhage with critical acute blood loss anemia. The patient has a history coronary disease, underwent 5 vessel bypass in 1993. He does get occasional angina, has not had any usual anginal symptoms and last 3 -4 days. Denies any chest tightness/squeezing/heaviness. He does get occasional shortness of breath. He's had no nausea, no vomiting, no hematemesis. He's felt crampy abdominal pains. He's had diarrhea/tarry stools as described. He's had normal urine output. No focal neurologic symptoms. He has mildly Eneida ejection fraction, echocardiogram most recently show an EF of 45-50%. He also underwent transcatheter aortic valve replacement with a bioprosthetic valve on 10/29/2016. He also complains of his legs "giving out" and being "rubbery" for the last several months. It appears he is being evaluated for peripheral arterial disease and does have significant stenoses on recent CT angiogram of the extremities. All systems: reviewed and no additional remarkable complaints except as stated Medical - H&P: H Medical history: Coronary artery disease, status post bypass 5 in 1993 Atrial fibrillation, paroxysmal, on Eliquis Aortic valvular disease, status post transcatheter aVR 10/2016 Type 2 diabetes mellitus Peripheral arterial disease with claudication COPD PTSD BPH History of ruptured duodenum about 5 years ago, treated at [facility] Surgical history: Coronary artery bypass grafting 1993 Transcatheter bioprosthetic AVR 10/29/2016 Repair of viscous rupture, partially 5 years ago Pertinent family history: No family history of GI disease Social history: The patient lives with his . He stopped smoking about 14 years ago. He has not drank alcohol in 20 years. Medical - H&P: Meds Home Medications Medication Instructions Recorded Confirmed Type Amiodarone HCl [Cordarone] 1 each PO Q2D 01/11/17 07/14/18 History Atorvastatin [Lipitor] 40 mg PO HS 01/11/17 07/14/18 History Budesonide/Formoterol Fumarate 10.2 gm IH BID 01/11/17 07/14/18 History [Symbicort 160-4.5 Mcg Inhaler] Carboxymethylcellulose Sodium 1 each OP DAILY 01/11/17 07/14/18 History [Refresh Plus] Clopidogrel Bisulfate [Plavix] 75 mg PO DAILY 01/11/17 06/30/18 History Digoxin [Lanoxin] 250 mcg PO DAILY 01/11/17 06/30/18 History Finasteride [Proscar] 5 mg PO HS 01/11/17 07/14/18 History Furosemide [Lasix] 40 mg PO DAILY 01/11/17 07/14/18 History Gabapentin [Neurontin] 300 mg PO DAILY 01/11/17 07/14/18 History Insulin Glargine, Human [Lantus] 20 unit SQ DAILY 01/11/17 07/14/18 History Metoprolol Tartrate [Lopressor] 50 mg PO BID 01/11/17 07/14/18 History Nitroglycerin [Nitrostat] 0.4 mg SL Q5M PRN 01/11/17 07/14/18 History Oxybutynin Chloride [Ditropan Xl] 5 mg PO DAILY 01/11/17 07/14/18 History Potassium Chloride [Kdur] 10 meq PO DAILY 01/11/17 06/30/18 History Tamsulosin [Flomax] 0.4 mg PO HS 01/11/17 06/30/18 History buPROPion [Wellbutrin] 100 mg PO BID 01/11/17 07/14/18 History Accu-Chek 1 each FS ACHS strip 01/12/17 07/14/18 Rx Pantoprazole Sodium [Protonix] 40 mg PO QAMAC #30 tablet. 01/12/17 07/14/18 Rx Apixaban [Eliquis] 10 mg PO DAILY 06/30/18 07/14/18 History Allergies Allergy/AdvReac Type Severity Reaction Status Date / Time metformin AdvReac Mild GI Upset Verified 07/18/18 10:58 Medical - H&P: Exam - Constitutional Vitals: Temp Pulse Resp BP Pulse Ox 96.7 F L 56 L 21 103/48 100 07/18/18 10:56 07/18/18 13:38 07/18/18 13:38 07/18/18 13:31 07/18/18 13:38 Exam: GENERAL: Alert, oriented, in no acute distress. Cooperative, appears stated age. HEENT: Atraumatic. PERRL, conjunctiva clear, no scleral icterus. Hearing grossly intact. Oropharynx with moist mucous membranes, tongue midline. NECK: Supple without meningismus, no thyromegaly RESPIRATORY: Breath sounds clear bilaterally without wheezes or rhonchi. Respiratory effort is unlabored. CARDIOVASCULAR: Regular rate and rhythm, no murmur gallop or rub. No peripheral edema. Carotid pulses 2+ without bruit. GI: Abdomen soft, nontender, no guarding or rebound. Bowel sounds are present. No hepatosplenomegaly. LYMPHATIC: No cervical or supraclavicular lymphadenopathy MUSCULOSKELETAL: No joint erythema or swelling, normal range of motion in all extremities. SKIN: Intact, warm, dry. No lesions. Skin turgor normal. NEUROLOGIC: Cranial nerves II through XII grossly intact. Muscle mass normal. Strength 5/5 in the upper and lower extremities. Sensation intact to light touch bilaterally. PSYCHIATRIC: Alert, oriented x3, normal mood and affect, normal insight. Medical - H&P: Reslt - Labs CBC & Chem 7: 07/18/18 11:03 07/18/18 11:03 Labs: Short CBC 07/18/18 Range/Units 11:03 WBC 10.4 (4.5-11.0) K/mcL Hgb 6.9 L* (13.5-16.5) g/dL Hct 22.2 L (41.0-55.0) % Plt Count 272 (140-440) K/mcL BMP 07/18/18 11:03 Sodium 132 L Potassium 5.0 Chloride 96 Carbon Dioxide 15 L BUN 33 H Creatinine 1.5 H Glucose 430 H Calcium 8.8 Liver Function 07/18/18 Range/Units 11:03 Total Bilirubin 0.2 (0.0-1.0) mg/dL AST 16 (0-37) U/l ALT 13 (0-40) U/l Alkaline Phosphatase 82 (39-117) U/L Albumin 3.9 (3.2-5.2) gm/dL - EKG Data EKG shows normal: sinus rhythm, ST-T waves Rate: normal Medical - H&P: A/P (1) Upper GI bleed Current visit: Yes Status: Acute - Narrative A/P Narrative: 68-year-old male presenting with melena, lightheadedness, found to be heme positive with critical anemia. Upper gastrointestinal hemorrhage. Suspect this is secondary to recent gastric polypectomy done on 07/14. Patient has been anticoagulated with Eliquis during this time period, also on low-dose aspirin. Unlikely to be gastritis, ulcer or other lesions given otherwise normal EGD last week. Plan: ICU admission Transfuse 2 units of packed red cells Follow H&H GI consultation for endoscopy, Dr. Tamayo notified by the ED Acid suppression with Protonix infusion Hold Eliquis, at this point we'll support with blood products, do not feel reversal agent needed as should be washing out in the next few hours Hold aspirin Acute blood loss anemia due to GI hemorrhage. Plan: As above Paroxysmal atrial fibrillation, on Eliquis for stroke prophylaxis. Currently in normal sinus rhythm. Plan: Monitor, hold anticoagulation Type 2 diabetes mellitus with hyperglycemia. On insulin therapy at home. Plan: Patient is in by mouth, every 6 hours Accu-Cheks with sliding scale insulin. Consider insulin drip if needed. COPD. Quiescent. Plan: Review and order home regimen. Coronary artery disease. No current evidence of coronary ischemia, no evidence of injury on EKG. Plan: Holding aspirin, will hold beta dwain given GI bleed, follow for evidence of ischemia. Prophylaxis: SCDs CODE STATUS: Full code
[2018-07-18] MEDS ORDERED: ONDANSETRON 4 MG/2 ML VIAL IV PRN (15:57)
[2018-07-18] MEDS ORDERED: DEXTROSE 50% 50 ML VIAL IV PRN (15:57)
[2018-07-18] MEDS ORDERED: DEXTROSE 31 GM ORAL.SUSP PO PRN (15:57)
[2018-07-18] MEDS ORDERED: ACETAMINOPHEN 650 MG SUPP.RECT PR PRN (15:57)
[2018-07-18] MEDS ORDERED: ACETAMINOPHEN 325 MG TABLET PO PRN (15:57)
[2018-07-18] MEDS: INSULIN LISPRO 1 UNIT/0.01 ML UNIT SQ SCH (16:19)
[2018-07-18] MEDS ORDERED: ALBUTEROL SULFATE 2.5 MG/3 ML NEBULIZER NEB PRN (17:59)
[2018-07-18] MEDS ORDERED: KETAMINE HCL 50 MG/ML ML IV PRN (18:30)
[2018-07-18] MEDS ORDERED: PROPOFOL 200 MG/20 ML VIAL IV SCH (18:30)
[2018-07-18] MEDS ORDERED: MIDAZOLAM 2 MG/2 ML VIAL IV SCH (18:30)
[2018-07-18] MEDS ORDERED: PROPOFOL 20 ML IV ONE (18:53)
[2018-07-18] MEDS ORDERED: MIDAZOLAM 2 MG/2 ML VIAL ONE (18:53)
[2018-07-18] MEDS ORDERED: TAMSULOSIN 0.4 MG CAPSULE PO SCH (21:00)
[2018-07-18] MEDS: buPROPion 100 MG TABLET PO SCH (21:18)
[2018-07-18] MEDS: FLUTICASONE/SALMETEROL 250/50 INHALER #14 INH SCH (21:19)
[2018-07-18] MEDS: 0.9 % SODIUM CHLORIDE 10 ML SYRINGE IV SCH (21:19)
[2018-07-18] MEDS: OXYBUTYNIN CHLORIDE 5 MG TAB.XL.24H PO SCH (21:19)
[2018-07-18] MEDS ORDERED: ZOLPIDEM 5 MG TABLET PO PRN (23:28)
[2018-07-18] MEDS ORDERED: ZOLPIDEM 5 MG TABLET ONE (23:42)
[2018-07-19] MEDS ORDERED: DEXTROSE 50% 50 ML VIAL IV PRN ×2 (03:08→10:42)
[2018-07-19] MEDS ORDERED: DEXTROSE 31 GM ORAL.SUSP PO ONE (03:10)
[2018-07-19] MEDS ORDERED: DEXTROSE 31 GM ORAL.SUSP PO PRN ×2 (03:37→10:42)
[2018-07-19] MEDS: INSULIN LISPRO 1 UNIT/0.01 ML UNIT SQ SCH ×4 (03:45→20:33)
[2018-07-19] MEDS: 0.9 % SODIUM CHLORIDE 10 ML SYRINGE IV SCH ×3 (05:25→20:34)
[2018-07-19 06:46] LABS: Basophils # (Auto) 0 K/mcL (0.0-0.3); Basophils % (Auto) 0.3 % (0.0-2.0); Eosinophils # (Auto) 0.2 K/mcL (0.0-0.7); Eosinophils % (Auto) 1.8 % (0.0-7.0); Granulocytes % (Auto) 72.5 % (38.0-78.0); Lymphocytes # (Auto) 1.5 K/mcL (1.5-4.8); Lymphocytes % (Auto) 16.4 % (15.5-49.0); Mean Cell Volume 76.9 fL (80.0-100.0); Mean Corpuscular HGB Conc 31.9 g/dL (31.0-36.0); Mean Corpuscular Hemoglobin 24.5 pg (26.0-34.0); Monocytes # (Auto) 0.8 K/mcL (0.1-0.9); Platelet Count 231 K/mcL (140-440); RBC 3.37 M/mcL (4.50-5.90); Red Cell Distribution Width 19.4 % (11.5-14.5)
[2018-07-19 07:04] LABS: ALT/SGPT 41 U/l (0-40); Albumin 3.7 gm/dL (3.2-5.2); Albumin/Globulin Ratio 1.7 (1.0-2.3); Alkaline Phosphatase 76 U/L (39-117); Bilirubin,Direct < 0.2 mg/dL (0.0-0.3); Blood Urea Nitrogen 23 mg/dl (8-23); Gamma Glutamyl Transpeptidase 38 U/L (8-61); Uric Acid 4.8 mg/dL (2.5-8.0)
[2018-07-19] MEDS ORDERED: INSULIN LISPRO 1 UNIT/0.01 ML UNIT SQ SCH (07:30)
--- NOTE | 2018-07-19 07:55 | Operative Note ---
DATE OF OPERATION: 07/18/2018 PREPROCEDURE DIAGNOSIS: Upper GI bleed secondary to duodenal ulcer versus polypectomy site. POSTPROCEDURE DIAGNOSIS: Recent upper GI bleed secondary to polypectomy site. PROCEDURE: Esophagogastroduodenoscopy with ''control of bleeding,'' resolution clip placed on presumed bleeding site. INSTRUMENT USED: Olympus EVELIN [id number] endoscope. SPECIMENS OBTAINED: None. Previous evaluation for CLOtest was done last week. I am uncertain of the results. INDICATIONS FOR PROCEDURE: The patient is a 68-year-old gentleman who I believe gets most of his care through the [place] facility. I believe his primary care provider is Dr. Jhonatan pantoja. The patient had an EGD by Dr. Hassan last week, so the endoscopy staff state. He did have a polyp removed from the fundus. It is possible this is the bleeding site. The patient did present to the ER feeling weak. Hemoglobin was down to 6.9. Blood pressure was a little low in the 90s. He responded well to IV fluids. He is on Eliquis. He did have black stool. He has had a CABG x4. He has had a previous history of perforated duodenum in the past. The patient has received 2 units of red blood cells. He is hemodynamically improved. Endoscopy is indicated. INFORMED CONSENT: The procedure was reviewed with the patient. The patient had no further questions and accepts the risks and benefits thereof. One of the risks that were discussed included . Additional risks that were also discussed included bleeding, reaction to medication, possible perforation and possible need for surgery. IV MEDICATIONS USED: Versed 2 and propofol 150. FINDINGS: ESOPHAGUS: Proximal and mid esophagus normal. Distal esophagus: There were an increased number of fine blood vessels which is consistent with, but not necessarily diagnostic of, reflux. EG JUNCTION: This was at 40 cm. This appeared fairly normal. STOMACH: Cardia normal. Fundus there was a scarred area and some petechia noted. This is the presumed polypectomy site. This was not actively bleeding at the time. However, this is the presumed bleeding site. Because of his significant bleeding and the fact he is on Eliquis-anticoagulation, I felt it philip to place a clip. This was accomplished. Body and antrum normal. PYLORUS: Normal. DUODENUM: This appeared normal. RECOMMENDATIONS: I have no objections to starting a diet beginning with clear to full liquid, advance to soft as tolerated. In about 2 to 4 weeks I would recommend checking the stool for occult blood. Given the patient's improvement and the endoscopic findings, I have no objections if he is discharged from the hospital in a day or 2 provided the hemoglobin is stable and he tolerates a diet satisfactory and there are no other medical problems that would suggest he needs to stay in the hospital longer. The patient states he is on a PPI medication. This should be continued, given his previous history. I believe currently is on a Protonix drip. This probably could be changed to p.o. PPI medication in the near future. SEDATION TIME: 19:000 to 19:40.Please refer to the preprocedure nurse's notes, procedure flowsheet, procedure record, and post-procedure assessment for details of the sedation including the pre-, intra-, and post-service work. CRD:kh Job ID: [id number] Doc ID: [id number] Vicente Pantoja MD
[2018-07-19] MEDS ORDERED: PANTOPRAZOLE 80 MG in 0.9 % SODIUM CHLORIDE 100 ML IV SCH ×2 (08:00→18:00)
--- NOTE | 2018-07-19 08:27 | Internal Med Progress Note ---
Medical - PN: Subj Patient information: Note initiated : 07/19/18 at 8:23 am Service Date, if different from initiated Date: [] Patient: Ozzy Fox a 68 y/o M admitted on 07/18/18 for loose black stools, dizziness, low BP. Chief Complaint: f/u GI bleed Interval history: 07/18 Mr. Fox is a 68 year old M with a history of type 2 diabetes mellitus, paroxysmal atrial fibrillation (on Eliquis), coronary artery disease, peripheral arterial disease, chronic anemia who presents with lightheadedness and dark stools. Patient has been worked up for anemia in the last month. He had a colonoscopy on 07/01/2018 which was essentially normal. On 07/14/18 he had an EGD, which time he had a gastric polyp removed, also had biopsies looking for evidence of malabsorption or celiac. That was on Thursday. About Thursday the patient started developing dark stools that were "one cut above tar" in consistency. Subsequently he started feeling lightheaded over the last 2-3 days. This morning while in [employer] sitting up in a pew, was dizzy while at rest (lightheaded), and everyone commented that he was looking very pale. He had further dark stools while there, prior to presenting to the emergency department. In the emergency department, initial labs show hemoglobin of 6.9, he was heme positive. Further history, the patient takes Eliquis twice daily, he continued to take that during his endoscopy procedures. He also takes 81 mg aspirin daily. He does not use clopidogrel or other antiplatelet agents, does not use nonsteroidals. He does take 2 acetaminophen scheduled 3 times a day. Patient is being admitted for treatment of likely upper gastrointestinal hemorrhage with critical acute blood loss anemia. 07/19 Patient is status post upper endoscopy, source of bleeding likely gastric polypectomy site. Clip was placed by Dr. Tamayo. Tolerating full liquid diet currently. Hemoglobin stable, slowly increasing. No complaints, no abdominal pain, no dyspnea, no chest pain. No nausea or vomiting. - Constitutional Vitals: Vital Signs Temp Pulse Resp BP Pulse Ox 99.1 F H 79 19 112/72 96 07/19/18 07:01 07/19/18 07:01 07/19/18 07:01 07/19/18 07:01 07/19/18 07:01 Period Temp Pulse Resp BP Sys/[place] Pulse Ox Last 24 Hr 96.7 F-99.1 F 52-90 13-22 90-127/42-97 91-100 Intake and Output 07/18/18 07/19/18 07/19/18 21:59 05:59 13:59 Intake Total 2359 / 2359 220 / 220 240 / 240 Output Total 300 / 300 1000 / 1000 350 / 350 Balance 2058 -780 / -780 -110 / -110 Weight 183 lb Intake & Output: Intake & Output 07/18/18 07/19/18 07/19/18 21:59 05:59 13:59 Intake Total 2359 / 2359 220 / 220 240 / 240 Output Total 300 / 300 1000 / 1000 350 / 350 Balance 2058 -780 / -780 -110 / -110 Weight 183 lb Intake: IV 1234 / 1234 100 / 100 Lactated Ringers 1,000 ml @ 125 1208 / 1208 mls/hr IV .Q8H [facility] Rx#: [id number] Oral 480 / 480 120 / 120 240 / 240 Blood Product 645 / 645 Output: Urine Catheter Amount 375 / 375 Void Amount 300 / 300 625 / 625 350 / 350 Other: Meal sherbet Percent of Meal Consumed 100% Urine Appearance Clear Clear Urine Color Bright Yellow Light Leyla Urine Odor Normal Exam: General: In bed in no acute distress Chest: Clear, unlabored Cardiovascular: Regular rate and rhythm with 1/6 systolic murmur at the lower left sternal border, no edema Abdomen: Soft, nontender with active bowel sounds Neuro: Alert, oriented 3, no acute distress. Medical - PN: Obj Da - Labs CBC & Chem 7: 07/19/18 03:55 07/19/18 03:55 Labs: Abnormal Lab Results 07/19/18 07/19/18 07/18/18 03:55 03:55 22:05 RBC 3.37 L Hgb 8.3 L 8.3 L Hct 25.9 L 25.5 L POC Hct MCV 76.9 L MCH 24.5 L RDW 19.4 H Gran % Lymph % (Auto) Gran # Lymph # (Auto) VBG Lactic Acid Sodium Carbon Dioxide 21 L POC Total CO2 Anion Gap POC BUN BUN Creatinine POC Creatinine Glucose 106 H POC Glucose Hemoglobin A1c ALT 41 H Lactate Dehydrogenase 300 H 07/18/18 07/18/18 07/18/18 18:05 12:32 12:32 RBC Hgb 8.0 L Hct 25.2 L POC Hct MCV MCH RDW Gran % Lymph % (Auto) Gran # Lymph # (Auto) VBG Lactic Acid 4.3 H* Sodium Carbon Dioxide POC Total CO2 Anion Gap POC BUN BUN Creatinine POC Creatinine Glucose POC Glucose Hemoglobin A1c 8.0 H ALT Lactate Dehydrogenase 07/18/18 07/18/18 11:03 11:03 RBC 2.91 L Hgb 6.9 L* Hct 22.2 L POC Hct 22.0 L MCV 76.1 L MCH 23.8 L RDW 18.4 H Gran % 78.8 H Lymph % (Auto) 13.4 L Gran # 8.2 H Lymph # (Auto) 1.4 L VBG Lactic Acid Sodium 132 L Carbon Dioxide 15 L POC Total CO2 16 L Anion Gap 21.0 H POC BUN 30 H BUN 33 H Creatinine 1.5 H POC Creatinine 1.4 H Glucose 430 H POC Glucose 417 H Hemoglobin A1c ALT Lactate Dehydrogenase Meds: Medications Acetaminophen (Tylenol) 650 mg HI Q4-6HP PRN PRN Reason: PAIN/FEVER > 101 Acetaminophen (Tylenol) 650 mg PO Q4-6HP PRN PRN Reason: PAIN/FEVER > 101 Albuterol Sulfate (Ventolin) 2.5 mg NEB Q4HP PRN PRN Reason: Wheezing Bupropion HCl (Wellbutrin) 100 mg PO BID [facility] Last Admin: 07/18/18 21:18 Dose: 100 mg Dextrose (Dextrose 50%) 0 ml IV UD PRN; Protocol PRN Reason: Hypoglycemia Diagnostic Test (Pha) (Accu-Chek) 1 each FS [facility] Last Admin: 07/19/18 07:16 Dose: 1 each Gabapentin (Neurontin) 300 mg PO DAILY [facility] Glucose (Insta-Glucose) 0 gm PO PRN PRN PRN Reason: Blood Sugar - Low Pantoprazole Sodium 80 mg/ (Sodium Chloride) 100 mls @ 10 mls/hr IV Q10H [facility] Insulin Glargine (Lantus) 20 unit SQ DAILY [facility] Insulin Human Lispro (Humalog) 0 unit SQ [facility]; Protocol Last Admin: 07/19/18 07:16 Dose: Not Given Ondansetron HCl (Zofran) 4 mg IV Q4-6HP PRN PRN Reason: Nausea And Vomiting Oxybutynin Chloride (Ditropan Xl) 5 mg PO BID [facility] Last Admin: 07/18/18 21:19 Dose: 5 mg Fluticasone/Salmeterol (Advair 250-50 Diskus) 1 puff INH BID [facility] Last Admin: 07/18/18 21:19 Dose: Not Given Sodium Chloride (Saline Flush) 10 ml IV Q8 [facility] Last Admin: 07/19/18 05:25 Dose: 10 ml Tamsulosin HCl (Flomax) 0.4 mg PO HS [facility] Last Admin: 07/18/18 21:19 Dose: 0.4 mg Zolpidem Tartrate (Ambien) 5 mg PO HSP PRN PRN Reason: Insomnia Last Admin: 07/18/18 23:34 Dose: 5 mg Medical - PN: A/P - Time Spent With Patient Total time spent is greater than 50% in coordination of care (as documented) at patient's floor/unit and/or counseling patient: 25 - 35 minutes (1) Upper GI bleed Status: Acute Current Visit: Yes - Narrative A/P Narrative: 68-year-old male presenting with melena, lightheadedness, found to be heme positive with critical anemia. Upper gastrointestinal hemorrhage. Likely secondary to recent gastric polypectomy done on 07/14, status post endoscopy and clipping. Hemorrhage complicated by anticoagulation with Eliquis for history of atrial fibrillation. Plan: Change to telemetry status, follow hemoglobin every 6 hours, continue full liquids, if tolerated advance to soft diet this afternoon. Continue to hold Eliquis. Mobilize. varnish remover to bolus dosing of PPI when this infusion bag over. Anticipate possible discharge in morning if remains stable. Acute blood loss anemia due to GI hemorrhage. Status post 2 units packed red blood cells Plan: As above Hypertension. Blood pressure normal. On amlodipine, diltiazem and every other day metoprolol. Those are being held. Plan: Monitor hemodynamics, add back antihypertensives as needed Paroxysmal atrial fibrillation, on Eliquis for stroke prophylaxis. Currently in normal sinus rhythm. Plan: Monitor, hold anticoagulation Type 2 diabetes mellitus with hyperglycemia. On insulin therapy at home. Plan: CBGs improved from admission. Continue with insulin therapy. COPD. Quiescent. Plan: Review and order home regimen. Coronary artery disease. No current evidence of coronary ischemia, no evidence of injury on EKG. Plan: Holding aspirin, will hold beta dwain given GI bleed, follow for evidence of ischemia. Medical - PN: Qual - Stroke Symptom Onset Unknown: No - VTE Deep Vein Thrombosis/Pulmonary Embolism Present on Admission: No
[2018-07-19] MEDS: OXYBUTYNIN CHLORIDE 5 MG TAB.XL.24H PO SCH ×2 (08:54→20:32)
[2018-07-19] MEDS: FLUTICASONE/SALMETEROL 250/50 INHALER #14 INH SCH (08:55)
[2018-07-19] MEDS ORDERED: GABAPENTIN 300 MG CAPSULE PO SCH (09:00)
[2018-07-19] MEDS ORDERED: INSULIN GLARGINE, HUMAN 1 UNIT/0.01 ML SQ SCH (09:00)
[2018-07-19] MEDS ORDERED: ONDANSETRON 4 MG/2 ML VIAL IV PRN (10:42)
[2018-07-19] MEDS ORDERED: ACETAMINOPHEN 650 MG SUPP.RECT PR PRN (10:42)
[2018-07-19] MEDS ORDERED: ZOLPIDEM 5 MG TABLET PO PRN (10:42)
[2018-07-19] MEDS: ALBUTEROL SULFATE 2.5 MG/3 ML NEBULIZER NEB PRN (14:20)
[2018-07-19] MEDS: Budesonide/Formoterol Fumarate [Symbicort] 160/4.5 mcg Inhaler INH SCH ×2 (17:21→20:33)
[2018-07-19] MEDS: buPROPion 100 MG TABLET PO SCH ×2 (18:00→20:34)
[2018-07-19] MEDS: ACETAMINOPHEN 325 MG TABLET PO PRN ×2 (19:37→23:58)
[2018-07-19] MEDS ORDERED: 0.9 % SODIUM CHLORIDE 500 ML IV ONE (19:59)
[2018-07-19] MEDS ORDERED: ASPIRIN 81 MG TAB.CHEW CHEWED ONE (20:07)
[2018-07-19] MEDS ORDERED: 0.9 % SODIUM CHLORIDE 1,000 ML IV SCH (20:15)
[2018-07-19] MEDS ORDERED: ASPIRIN 81 MG TAB.CHEW ONE (20:17)
[2018-07-19] MEDS ORDERED: NITROGLYCERIN 0.4 MG TAB.SUBL SL ONE (20:23)
[2018-07-19] MEDS: TAMSULOSIN 0.4 MG CAPSULE PO SCH (20:32)
[2018-07-19] MEDS ORDERED: FLUTICASONE/SALMETEROL 250/50 INHALER #14 INH SCH (21:00)
[2018-07-19 21:05] LABS: Basophils # (Auto) 0 K/mcL (0.0-0.3); Basophils % (Auto) 0.3 % (0.0-2.0); Eosinophils # (Auto) 0.2 K/mcL (0.0-0.7); Eosinophils % (Auto) 1.6 % (0.0-7.0); Granulocytes % (Auto) 74.6 % (38.0-78.0); Lymphocytes # (Auto) 1.5 K/mcL (1.5-4.8); Lymphocytes % (Auto) 13.9 % (15.5-49.0); Mean Cell Volume 76.8 fL (80.0-100.0); Mean Corpuscular HGB Conc 32.3 g/dL (31.0-36.0); Mean Corpuscular Hemoglobin 24.8 pg (26.0-34.0); Monocytes % (Auto) 9.6 % (1.0-12.0); Platelet Count 259 K/mcL (140-440); RBC 3.77 M/mcL (4.50-5.90)
[2018-07-19 21:32] LABS: Creatine Kinase 174 IU/L (24-195); Creatine Kinase MB 3.1 ng/ml (0-4.9)
[2018-07-20] MEDS: ALBUTEROL SULFATE 2.5 MG/3 ML NEBULIZER NEB PRN ×2 (03:22→11:13)
[2018-07-20] MEDS: ACETAMINOPHEN 325 MG TABLET PO PRN ×3 (03:23→16:37)
[2018-07-20] MEDS: NITROGLYCERIN 0.4 MG TAB.SUBL SL PRN ×2 (04:34→11:59)
[2018-07-20] MEDS: 0.9 % SODIUM CHLORIDE 10 ML SYRINGE IV SCH ×3 (05:10→20:34)
[2018-07-20 05:53] LABS: Basophils # (Auto) 0 K/mcL (0.0-0.3); Basophils % (Auto) 0.3 % (0.0-2.0); Eosinophils # (Auto) 0.1 K/mcL (0.0-0.7); Eosinophils % (Auto) 0.9 % (0.0-7.0); Granulocytes % (Auto) 75.5 % (38.0-78.0); Lymphocytes # (Auto) 1.5 K/mcL (1.5-4.8); Lymphocytes % (Auto) 13.4 % (15.5-49.0); Mean Cell Volume 77.3 fL (80.0-100.0); Mean Corpuscular HGB Conc 31.5 g/dL (31.0-36.0); Mean Corpuscular Hemoglobin 24.3 pg (26.0-34.0); Monocytes # (Auto) 1.1 K/mcL (0.1-0.9); Monocytes % (Auto) 9.9 % (1.0-12.0); Platelet Count 251 K/mcL (140-440); RBC 3.67 M/mcL (4.50-5.90); Red Cell Distribution Width 19.3 % (11.5-14.5)
[2018-07-20 06:25] LABS: Blood Urea Nitrogen 16 mg/dl (8-23)
[2018-07-20] MEDS: OXYBUTYNIN CHLORIDE 5 MG TAB.XL.24H PO SCH ×2 (08:27→20:34)
[2018-07-20] MEDS: PANTOPRAZOLE 40 MG TABLET PO SCH ×2 (08:29→16:37)
[2018-07-20] MEDS: INSULIN GLARGINE, HUMAN 1 UNIT/0.01 ML SQ SCH (08:29)
[2018-07-20] MEDS: GABAPENTIN 300 MG CAPSULE PO SCH (08:29)
[2018-07-20] MEDS: METOPROLOL TARTRATE 25 MG TABLET PO SCH (08:29)
[2018-07-20] MEDS: INSULIN LISPRO 1 UNIT/0.01 ML UNIT SQ SCH ×4 (08:30→20:34)
[2018-07-20] MEDS: DILTIAZEM 120 MG CAP.XL.24H PO SCH (08:31)
[2018-07-20] MEDS: Budesonide/Formoterol Fumarate [Symbicort] 160/4.5 mcg Inhaler INH SCH ×2 (08:32→20:35)
[2018-07-20] MEDS ORDERED: NITROGLYCERIN 0.4 MG TAB.SUBL SL PRN (10:31)
--- NOTE | 2018-07-20 10:32 | Internal Med Progress Note ---
Medical - PN: Subj Patient information: Note initiated : 07/20/18 at 10:29 am Service Date, if different from initiated Date: [] Patient: Ozzy Fox a 68 y/o M admitted on 07/18/18 for loose black stools, dizziness, low BP. Chief Complaint: [] Interval history: 07/18 Mr. Fox is a 68 year old M with a history of type 2 diabetes mellitus, paroxysmal atrial fibrillation (on Eliquis), coronary artery disease, peripheral arterial disease, chronic anemia who presents with lightheadedness and dark stools. Patient has been worked up for anemia in the last month. He had a colonoscopy on 07/01/2018 which was essentially normal. On 07/14/18 he had an EGD, which time he had a gastric polyp removed, also had biopsies looking for evidence of malabsorption or celiac. That was on Thursday. About Thursday the patient started developing dark stools that were "one cut above tar" in consistency. Subsequently he started feeling lightheaded over the last 2-3 days. This morning while in jehovah's witness sitting up in a pew, was dizzy while at rest (lightheaded), and everyone commented that he was looking very pale. He had further dark stools while there, prior to presenting to the emergency department. In the emergency department, initial labs show hemoglobin of 6.9, he was heme positive. Further history, the patient takes Eliquis twice daily, he continued to take that during his endoscopy procedures. He also takes 81 mg aspirin daily. He does not use clopidogrel or other antiplatelet agents, does not use nonsteroidals. He does take 2 acetaminophen scheduled 3 times a day. Patient is being admitted for treatment of likely upper gastrointestinal hemorrhage with critical acute blood loss anemia. 07/19 Patient is status post upper endoscopy, source of bleeding likely gastric polypectomy site. Clip was placed by Dr. Tamayo. Tolerating full liquid diet currently. Hemoglobin stable, slowly increasing. No complaints, no abdominal pain, no dyspnea, no chest pain. No nausea or vomiting. 07/20 patient in A. fib with RVR. No overnight events. No concerns per staff. Intermittent chest pain however cardiac enzymes negative. Hemoglobin stable at 8.9, cardiac enzymes negative. Possible discharge in 24 hours if adequate rate control achieved. Started on metoprolol/diltiazem - Constitutional Vitals: Vital Signs Temp Pulse Resp BP Pulse Ox 99.6 F H 102 H 18 97/61 100 07/20/18 07:30 07/20/18 09:16 07/20/18 09:16 07/20/18 09:16 07/20/18 09:16 Period Temp Pulse Resp BP Sys/[place] Pulse Ox Last 24 Hr 98.1 F-99.6 F 84-140 11-24 72-129/55-79 92-100 Intake and Output 07/19/18 07/20/18 07/20/18 21:59 05:59 13:59 Intake Total 1420 / 1420 700 / 700 Output Total 1200 / 1200 950 / 950 450 / 450 Balance 220 / 220 -250 / -250 -450 / -450 Weight 185 lb 9.6 oz Intake & Output: Intake & Output 07/19/18 07/20/18 07/20/18 21:59 05:59 13:59 Intake Total 1420 / 1420 700 / 700 Output Total 1200 / 1200 950 / 950 450 / 450 Balance 220 / 220 -250 / -250 -450 / -450 Weight 185 lb 9.6 oz Intake: IV 840 / 840 Sodium Chloride 0.9% 500 ml @ 500 / 500 Wide Open IV BOLUS ONE Rx#: [id number] Lactated Ringers 1,000 ml @ 125 251 / 251 mls/hr IV .Q8H [facility] Rx#: [id number] Protonix 80 mg In Sodium 89 / 89 Chloride 0.9% 100 ml @ 8 MG/HR 10 mls/hr IV Q10H [facility] Rx#: [id number] Oral 580 / 580 700 / 700 Output: Urine Catheter Amount 275 / 275 Void Amount 1200 / 1200 950 / 950 175 / 175 # of times incontinent of urine 0 / 0 Other: Meal Dinner Percent of Meal Consumed 100% 75% Feeding Ability Independent Urine Appearance Clear Clear Clear Urine Color Pale Bright Yellow Bright Yellow Urine Odor Normal Normal Strong # Voids 1 General appearance: no acute distress Exam: Nonlabored breathing A. fib RVR on telemetry Minimal anxiety nondistended abdomen Medical - PN: Obj Da - Labs CBC & Chem 7: 07/20/18 04:17 12 04:17 Labs: Abnormal Lab Results 07/20/18 07/20/18 07/19/18 04:17 04:17 20:42 WBC 11.3 H RBC 3.67 L 3.77 L Hgb 8.9 L 9.3 L Hct 28.3 L 28.9 L POC Hct MCV 77.3 L 76.8 L MCH 24.3 L 24.8 L RDW 19.3 H 19.0 H Gran % Lymph % (Auto) 13.4 L 13.9 L Gran # 8.5 H Lymph # (Auto) Tal[place]ferro # (Auto) 1.1 H 1.0 H VBG Lactic Acid Sodium Carbon Dioxide 20 L POC Total CO2 Anion Gap 17.0 H POC BUN BUN Creatinine POC Creatinine Glucose 119 H POC Glucose Hemoglobin A1c Calcium 8.5 L ALT Lactate Dehydrogenase 07/19/18 07/19/18 07/19/18 16:19 10:00 03:55 WBC RBC Hgb 8.6 L 8.9 L Hct 26.7 L 28.0 L POC Hct MCV MCH RDW Gran % Lymph % (Auto) Gran # Lymph # (Auto) Taliaferro # (Auto) VBG Lactic Acid Sodium Carbon Dioxide 21 L POC Total CO2 Anion Gap POC BUN BUN Creatinine POC Creatinine Glucose 106 H POC Glucose Hemoglobin A1c Calcium ALT 41 H Lactate Dehydrogenase 300 H 07/19/18 07/18/18 07/18/18 03:55 22:05 18:05 WBC RBC 3.37 L Hgb 8.3 L 8.3 L 8.0 L Hct 25.9 L 25.5 L 25.2 L POC Hct MCV 76.9 L MCH 24.5 L RDW 19.4 H Gran % Lymph % (Auto) Gran # Lymph # (Auto) Taliaferro # (Auto) VBG Lactic Acid Sodium Carbon Dioxide POC Total CO2 Anion Gap POC BUN BUN Creatinine POC Creatinine Glucose POC Glucose Hemoglobin A1c Calcium ALT Lactate Dehydrogenase 07/18/18 07/18/18 07/18/18 12:32 12:32 11:03 WBC RBC Hgb Hct POC Hct 22.0 L MCV MCH RDW Gran % Lymph % (Auto) Gran # Lymph # (Auto) Taliaferro # (Auto) VBG Lactic Acid 4.3 H* Sodium 132 L Carbon Dioxide 15 L POC Total CO2 16 L Anion Gap 21.0 H POC BUN 30 H BUN 33 H Creatinine 1.5 H POC Creatinine 1.4 H Glucose 430 H POC Glucose 417 H Hemoglobin A1c 8.0 H Calcium ALT Lactate Dehydrogenase 07/18/18 11:03 WBC RBC 2.91 L Hgb 6.9 L* Hct 22.2 L POC Hct MCV 76.1 L MCH 23.8 L RDW 18.4 H Gran % 78.8 H Lymph % (Auto) 13.4 L Gran # 8.2 H Lymph # (Auto) 1.4 L Taliaferro # (Auto) VBG Lactic Acid Sodium Carbon Dioxide POC Total CO2 Anion Gap POC BUN BUN Creatinine POC Creatinine Glucose POC Glucose Hemoglobin A1c Calcium ALT Lactate Dehydrogenase Meds: Medications Acetaminophen (Tylenol) 650 mg AR Q4-6HP PRN PRN Reason: PAIN/FEVER > 101 Acetaminophen (Tylenol) 650 mg PO Q4-6HP PRN PRN Reason: PAIN/FEVER > 101 Last Admin: 07/20/18 07:24 Dose: 650 mg Albuterol Sulfate (Ventolin) 2.5 mg NEB Q4HP PRN PRN Reason: Wheezing Last Admin: 07/20/18 03:22 Dose: 2.5 mg Bupropion HCl (Wellbutrin) 100 mg PO BID [facility] Last Admin: 07/19/18 20:34 Dose: Not Given Dextrose (Dextrose 50%) 0 ml IV UD PRN; Protocol PRN Reason: Hypoglycemia Diagnostic Test (Pha) (Accu-Chek) 1 each FS ACHS [facility] Last Admin: 07/20/18 07:15 Dose: 1 each Diltiazem HCl (Cardizem Cd) 120 mg PO DAILY [facility] Last Admin: 07/20/18 08:31 Dose: 120 mg Gabapentin (Neurontin) 300 mg PO DAILY [facility] Last Admin: 07/20/18 08:29 Dose: 300 mg Glucose (Insta-Glucose) 0 gm PO PRN PRN PRN Reason: Blood Sugar - Low Insulin Glargine (Lantus) 20 unit SQ DAILY [facility] Last Admin: 07/20/18 08:29 Dose: 20 unit Insulin Human Lispro (Humalog) 0 unit SQ ACHS [facility]; Protocol Last Admin: 07/20/18 08:30 Dose: 2 units Metoprolol Tartrate (Lopressor) 25 mg PO QDAY [facility] Last Admin: 07/20/18 08:29 Dose: 25 mg Nitroglycerin (Nitrostat) 0.4 mg SL Q5M PRN PRN Reason: Chest Pain Last Admin: 07/20/18 04:34 Dose: 0.4 mg Ondansetron HCl (Zofran) 4 mg IV Q4-6HP PRN PRN Reason: Nausea And Vomiting Oxybutynin Chloride (Ditropan Xl) 5 mg PO BID [facility] Last Admin: 07/20/18 08:27 Dose: 5 mg Pantoprazole Sodium (Protonix) 40 mg PO BIDAC [facility] Last Admin: 07/20/18 08:29 Dose: 40 mg Budesonide/Formoterol Fumarate [Symbicort] 160/4.5 Mcg Inhaler 1 dose INH BID [facility] Last Admin: 07/20/18 08:32 Dose: 1 dose Sodium Chloride (Saline Flush) 10 ml IV Q8 [facility] Last Admin: 07/20/18 05:10 Dose: 10 ml Tamsulosin HCl (Flomax) 0.4 mg PO HS [facility] Last Admin: 07/19/18 20:32 Dose: 0.4 mg Zolpidem Tartrate (Ambien) 5 mg PO HSP PRN PRN Reason: Insomnia Medical - PN: A/P - Time Spent With Patient Total time spent is greater than 50% in coordination of care (as documented) at patient's floor/unit and/or counseling patient: 25 - 35 minutes (1) Upper GI bleed Status: Acute Assessment and plan: * UGI bleed-secondary to polypectomy 07/14. Eliquis on hold. Hemoglobin stable. Possible discharge in 24 hours with resumption of Eliquis in 1 week * Blood loss anemia-status post 2 units transfusion. Clinically stable hemoglobin at 8.9 * History of A. fib continue metoprolol/diltiazem * History of hypertension -restart metoprolol diltiazem lisinopril and amlodipine * T2 DM on home insulin treatment * COPD continue bronchodilators * History of CAD new aspirin,Eliquis on hold continue beta-dwain TEMI inhibitor * Full code * Prophylaxis ambulation/SCDs PLAN * Continue rate control measures * Restart home medication for hypertension * Pre-existing medical condition management as above * Possible discharge in 24 hours Current Visit: Yes Medical - PN: Qual - Stroke Symptom Onset Unknown: No - VTE Deep Vein Thrombosis/Pulmonary Embolism Present on Admission: No
[2018-07-20] MEDS: buPROPion 100 MG TABLET PO SCH ×2 (10:37→21:14)
[2018-07-20] MEDS ORDERED: ALBUTEROL SULFATE 1 PUFF INHALER INH PRN (10:43)
[2018-07-20] MEDS ORDERED: BISACODYL 10 MG SUPP.RECT PR PRN (16:44)
[2018-07-20] MEDS ORDERED: MAGNESIUM HYDROXIDE 30 ML ORAL.SUSP PO PRN (16:44)
[2018-07-20] MEDS ORDERED: FLEETS ADULT ENEMA PR PRN (16:44)
[2018-07-20] MEDS: DOCUSATE SODIUM 100 MG CAPSULE PO SCH (20:34)
[2018-07-20] MEDS: MAGNESIUM OXIDE 400 MG TABLET PO SCH (20:34)
[2018-07-20] MEDS: TAMSULOSIN 0.4 MG CAPSULE PO SCH (20:34)
[2018-07-20] MEDS ORDERED: Budesonide/Formoterol Fumarate [Symbicort 160-4.5 MCG] Inhaler INH SCH (21:00)
[2018-07-21] MEDS: ACETAMINOPHEN 325 MG TABLET PO PRN ×4 (04:22→21:39)
[2018-07-21 05:36] LABS: Basophils # (Auto) 0 K/mcL (0.0-0.3); Basophils % (Auto) 0.1 % (0.0-2.0); Eosinophils # (Auto) 0 K/mcL (0.0-0.7); Eosinophils % (Auto) 0.1 % (0.0-7.0); Granulocytes % (Auto) 85.6 % (38.0-78.0); Lymphocytes # (Auto) 1.1 K/mcL (1.5-4.8); Lymphocytes % (Auto) 6.6 % (15.5-49.0); Mean Cell Volume 77.2 fL (80.0-100.0); Mean Corpuscular HGB Conc 32.4 g/dL (31.0-36.0); Monocytes # (Auto) 1.3 K/mcL (0.1-0.9); Monocytes % (Auto) 7.6 % (1.0-12.0); Platelet Count 275 K/mcL (140-440); Red Cell Distribution Width 19.4 % (11.5-14.5)
[2018-07-21] MEDS: 0.9 % SODIUM CHLORIDE 10 ML SYRINGE IV SCH ×4 (06:00→21:38)
[2018-07-21 06:01] LABS: ALT/SGPT 24 U/l (0-40); Albumin 3.6 gm/dL (3.2-5.2); Albumin/Globulin Ratio 1.4 (1.0-2.3); Alkaline Phosphatase 94 U/L (39-117); Bilirubin,Direct < 0.2 mg/dL (0.0-0.3); Blood Urea Nitrogen 17 mg/dl (8-23); Gamma Glutamyl Transpeptidase 31 U/L (8-61); Uric Acid 3.6 mg/dL (2.5-8.0)
[2018-07-21] MEDS: PANTOPRAZOLE 40 MG TABLET PO SCH ×2 (06:37→16:52)
[2018-07-21] MEDS: INSULIN LISPRO 1 UNIT/0.01 ML UNIT SQ SCH ×4 (06:53→21:37)
[2018-07-21] MEDS: INSULIN GLARGINE, HUMAN 1 UNIT/0.01 ML SQ SCH (08:19)
[2018-07-21] MEDS: GABAPENTIN 300 MG CAPSULE PO SCH (08:19)
[2018-07-21] MEDS: DOCUSATE SODIUM 100 MG CAPSULE PO SCH ×2 (08:19→21:38)
[2018-07-21] MEDS: METOPROLOL TARTRATE 25 MG TABLET PO SCH (08:19)
[2018-07-21] MEDS: ASPIRIN 81 MG TAB.CHEW PO SCH (08:19)
[2018-07-21] MEDS: MAGNESIUM OXIDE 400 MG TABLET PO SCH ×2 (08:19→21:36)
[2018-07-21] MEDS: Budesonide/Formoterol Fumarate [Symbicort] 160/4.5 mcg Inhaler INH SCH ×2 (08:20→21:38)
[2018-07-21] MEDS ORDERED: DILTIAZEM 120 MG CAP.XL.24H PO SCH (09:00)
[2018-07-21] MEDS ORDERED: LISINOPRIL 20 MG TABLET PO SCH (09:00)
[2018-07-21] MEDS ORDERED: IOPAMIDOL 100 ML BOTTLE IV ONE (09:17)
--- NOTE | 2018-07-21 09:29 | Cat Scan Report ---
CLINICAL INFORMATION: Chest pain, elevated white blood cell count, dizziness and hypertension COMPARISON: 01/12/17 TECHNIQUE:100 cc of Optiray 320 were injected intravenously, and 20 seconds later, 2.5 mm helical slices were obtained from the lung apices through the bases. Following reconstruction, 2.5 mm sagittal, coronal and axial reformations were processed. The exam was reviewed at lung, mediastinal and bone window. 7 mm axial MIPS were also obtained the radiation exposure was limited using dose reduction technology. FINDINGS: Mild emphysema is present in both lungs, predominantly involving the upper lobes. Contiguous with the major fissure in the superior segment of the left lower lobe there are two contiguous nodular densities which have a linear orientation. It measures approximately 3 x 6 6 mm in size. These are unchanged in the prior CT and probably represents scar tissue. There are very small bilateral pleural effusions, right greater than left. Adjacent to the pleural fluid there is mild atelectasis in the basilar segments of both lower lobes, right greater than left. There is no lobar consolidation or suspicious lung mass. Pulmonary arteries are normal without evidence of emboli. The aorta is normal in caliber. There are scattered plaques in the aorta and coronary arteries. The patient had prior coronary bypass surgery. Heart is mildly enlarged but has remained stable. Incidentally noted is a 3 mm stone in the gallbladder. IMPRESSION: Mild emphysema Mild bibasilar atelectasis and small bilateral pleural effusions Interpreted and Authenticated by: Joe Figueroa 07/21/18
[2018-07-21] MEDS ORDERED: MAGNESIUM CITRATE 300 ML ORAL.SOL PO ONE (09:44)
[2018-07-21] MEDS: buPROPion 100 MG TABLET PO SCH ×2 (09:47→21:36)
[2018-07-21] MEDS: FUROSEMIDE 20 MG TABLET PO SCH (09:47)
[2018-07-21] MEDS: DILTIAZEM 120 MG CAP.XL.24H PO SCH (09:47)
[2018-07-21] MEDS: OXYBUTYNIN CHLORIDE 5 MG TAB.XL.24H PO SCH ×2 (09:47→21:36)
[2018-07-21] MEDS: amLODIPine 5 MG TABLET PO SCH (09:48)
--- NOTE | 2018-07-21 10:38 | Internal Med Progress Note ---
Medical - PN: Subj Patient information: Note initiated : 07/21/18 at 10:35 am Service Date, if different from initiated Date: [] Patient: Ozzy Fox a 68 y/o M admitted on 07/18/18 for loose black stools, dizziness, low BP. Chief Complaint: [] Interval history: 07/18 Mr. Fox is a 68 year old M with a history of type 2 diabetes mellitus, paroxysmal atrial fibrillation (on Eliquis), coronary artery disease, peripheral arterial disease, chronic anemia who presents with lightheadedness and dark stools. Patient has been worked up for anemia in the last month. He had a colonoscopy on 07/01/2018 which was essentially normal. On 07/14/18 he had an EGD, which time he had a gastric polyp removed, also had biopsies looking for evidence of malabsorption or celiac. That was on Thursday. About Thursday the patient started developing dark stools that were "one cut above tar" in consistency. Subsequently he started feeling lightheaded over the last 2-3 days. This morning while in gnosticism sitting up in a pew, was dizzy while at rest (lightheaded), and everyone commented that he was looking very pale. He had further dark stools while there, prior to presenting to the emergency department. In the emergency department, initial labs show hemoglobin of 6.9, he was heme positive. Further history, the patient takes Eliquis twice daily, he continued to take that during his endoscopy procedures. He also takes 81 mg aspirin daily. He does not use clopidogrel or other antiplatelet agents, does not use nonsteroidals. He does take 2 acetaminophen scheduled 3 times a day. Patient is being admitted for treatment of likely upper gastrointestinal hemorrhage with critical acute blood loss anemia. 07/19 Patient is status post upper endoscopy, source of bleeding likely gastric polypectomy site. Clip was placed by Dr. Tamayo. Tolerating full liquid diet currently. Hemoglobin stable, slowly increasing. No complaints, no abdominal pain, no dyspnea, no chest pain. No nausea or vomiting. 07/20 patient in A. fib with RVR. No overnight events. No concerns per staff. Intermittent chest pain however cardiac enzymes negative. Hemoglobin stable at 8.9, cardiac enzymes negative. Possible discharge in 24 hours if adequate rate control achieved. Started on metoprolol/diltiazem 07/21-patient clinically deteriorating with worsening white count at 16.5 up from 11.3, intermittent right-sided chest pain and persistent atrial fibrillation. CT angiogram chest today. Hemoglobin stable. Check UA/blood cultures. Continue evaluation for leukocytosis. Continue telemetry monitoring. Rate control measures including diltiazem/metoprolol. - Constitutional Vitals: Vital Signs Temp Pulse Resp BP Pulse Ox 98.2 F 146 H 16 96/70 94 07/21/18 06:54 07/21/18 06:54 07/21/18 07:06 07/21/18 07:06 07/21/18 07:06 Period Temp Pulse Resp BP Sys/[place] Pulse Ox Last 24 Hr 98.2 F-101.0 F 116-146 16-27 75-118/55-79 88-98 Intake and Output 07/20/18 07/21/18 07/21/18 21:59 05:59 13:59 Intake Total 360 / 360 200 / 200 Output Total 550 / 550 525 / 525 150 / 150 Balance -190 / -190 -325 / -325 -150 / -150 Weight 182 lb 8 oz Intake & Output: Intake & Output 07/20/18 07/21/18 07/21/18 21:59 05:59 13:59 Intake Total 360 / 360 200 / 200 Output Total 550 / 550 525 / 525 150 / 150 Balance -190 / -190 -325 / -325 -150 / -150 Weight 182 lb 8 oz Intake: Oral 360 / 360 200 / 200 Output: Urine Catheter Amount 150 / 150 Void Amount 550 / 550 375 / 375 150 / 150 Other: Meal Dinner Percent of Meal Consumed 75% Feeding Ability Independent Urine Appearance Clear Clear Clear Urine Color Bright Yellow Dark Yellow Light Leyla Urine Odor Normal Normal Strong # Voids 1 General appearance: no acute distress Exam: Appears anxious Nonlabored breathing Afibrillation RVR on telemetry No abdominal distention Medical - PN: Obj Da - Labs CBC & Chem 7: 07/21/18 04:23 07/21/18 04:23 Labs: Abnormal Lab Results 07/21/18 07/21/18 07/20/18 04:23 04:23 04:17 WBC 16.5 H RBC 3.70 L Hgb 9.3 L Hct 28.6 L POC Hct MCV 77.2 L MCH 25.0 L RDW 19.4 H Gran % 85.6 H Lymph % (Auto) 6.6 L Gran # 14.2 H Lymph # (Auto) 1.1 L Potter # (Auto) 1.3 H VBG Lactic Acid Sodium Carbon Dioxide 20 L 20 L POC Total CO2 Anion Gap 17.0 H POC BUN BUN Creatinine POC Creatinine Glucose 119 H POC Glucose Hemoglobin A1c Calcium 8.5 L 8.5 L ALT Lactate Dehydrogenase 300 H 07/20/18 07/19/18 07/19/18 04:17 20:42 16:19 WBC 11.3 H RBC 3.67 L 3.77 L Hgb 8.9 L 9.3 L 8.6 L Hct 28.3 L 28.9 L 26.7 L POC Hct MCV 77.3 L 76.8 L MCH 24.3 L 24.8 L RDW 19.3 H 19.0 H Gran % Lymph % (Auto) 13.4 L 13.9 L Gran # 8.5 H Lymph # (Auto) Potter # (Auto) 1.1 H 1.0 H VBG Lactic Acid Sodium Carbon Dioxide POC Total CO2 Anion Gap POC BUN BUN Creatinine POC Creatinine Glucose POC Glucose Hemoglobin A1c Calcium ALT Lactate Dehydrogenase 07/19/18 07/19/18 07/19/18 10:00 03:55 03:55 WBC RBC 3.37 L Hgb 8.9 L 8.3 L Hct 28.0 L 25.9 L POC Hct MCV 76.9 L MCH 24.5 L RDW 19.4 H Gran % Lymph % (Auto) Gran # Lymph # (Auto) Potter # (Auto) VBG Lactic Acid Sodium Carbon Dioxide 21 L POC Total CO2 Anion Gap POC BUN BUN Creatinine POC Creatinine Glucose 106 H POC Glucose Hemoglobin A1c Calcium ALT 41 H Lactate Dehydrogenase 300 H 07/18/18 07/18/18 07/18/18 22:05 18:05 12:32 WBC RBC Hgb 8.3 L 8.0 L Hct 25.5 L 25.2 L POC Hct MCV MCH RDW Gran % Lymph % (Auto) Gran # Lymph # (Auto) Potter # (Auto) VBG Lactic Acid Sodium Carbon Dioxide POC Total CO2 Anion Gap POC BUN BUN Creatinine POC Creatinine Glucose POC Glucose Hemoglobin A1c 8.0 H Calcium ALT Lactate Dehydrogenase 07/18/18 07/18/18 07/18/18 12:32 11:03 11:03 WBC RBC 2.91 L Hgb 6.9 L* Hct 22.2 L POC Hct 22.0 L MCV 76.1 L MCH 23.8 L RDW 18.4 H Gran % 78.8 H Lymph % (Auto) 13.4 L Gran # 8.2 H Lymph # (Auto) 1.4 L Potter # (Auto) VBG Lactic Acid 4.3 H* Sodium 132 L Carbon Dioxide 15 L POC Total CO2 16 L Anion Gap 21.0 H POC BUN 30 H BUN 33 H Creatinine 1.5 H POC Creatinine 1.4 H Glucose 430 H POC Glucose 417 H Hemoglobin A1c Calcium ALT Lactate Dehydrogenase Meds: Medications Acetaminophen (Tylenol) 650 mg MT Q4-6HP PRN PRN Reason: PAIN/FEVER > 101 Acetaminophen (Tylenol) 650 mg PO Q4-6HP PRN PRN Reason: PAIN/FEVER > 101 Last Admin: 07/21/18 06:37 Dose: 650 mg Albuterol Sulfate (Ventolin) 2.5 mg NEB Q4HP PRN PRN Reason: Wheezing Last Admin: 07/20/18 11:13 Dose: 2.5 mg Albuterol Sulfate (Ventolin) 1 puff INH QIDP PRN PRN Reason: BRONCHOSPASM Amlodipine Besylate (Norvasc) 5 mg PO DAILY [facility] Last Admin: 07/21/18 09:48 Dose: Not Given Apixaban (Eliquis) 5 mg PO BID [facility] Aspirin (Aspirin) 81 mg PO DAILY [facility] Last Admin: 07/21/18 08:19 Dose: 81 mg Bisacodyl (Dulcolax) 10 mg MT Q2-3DAYS PRN PRN Reason: Constipation Bupropion HCl (Wellbutrin) 100 mg PO BID [facility] Last Admin: 07/21/18 09:47 Dose: 100 mg Dextrose (Dextrose 50%) 0 ml IV UD PRN; Protocol PRN Reason: Hypoglycemia Diagnostic Test (Pha) (Accu-Chek) 1 each FS ACHS [facility] Last Admin: 07/21/18 06:53 Dose: 1 each Diltiazem HCl (Cardizem Cd) 120 mg PO DAILY [facility] Last Admin: 07/21/18 09:47 Dose: 120 mg Docusate Sodium (Colace) 100 mg PO BID [facility] Last Admin: 07/21/18 08:19 Dose: 100 mg Furosemide (Lasix) 20 mg PO DAILY [facility] Last Admin: 07/21/18 09:47 Dose: Not Given Gabapentin (Neurontin) 300 mg PO DAILY [facility] Last Admin: 07/21/18 08:19 Dose: 300 mg Glucose (Insta-Glucose) 0 gm PO PRN PRN PRN Reason: Blood Sugar - Low Insulin Glargine (Lantus) 20 unit SQ DAILY [facility] Last Admin: 07/21/18 08:19 Dose: 20 unit Insulin Human Lispro (Humalog) 0 unit SQ ACHS [facility]; Protocol Last Admin: 07/21/18 06:53 Dose: Not Given Lisinopril (Zestril) 20 mg PO DAILY [facility] Last Admin: 07/21/18 09:48 Dose: Not Given Magnesium Hydroxide (Milk Of Magnesia) 30 ml PO DAILYP PRN PRN Reason: Constipation Last Admin: 07/20/18 17:11 Dose: 30 ml Magnesium Oxide (Magnesium Oxide) 400 mg PO BID [facility] Last Admin: 07/21/18 08:19 Dose: 400 mg Metoprolol Tartrate (Lopressor) 25 mg PO QDAY [facility] Last Admin: 07/21/18 08:19 Dose: 25 mg Nitroglycerin (Nitrostat) 0.4 mg SL Q5M PRN PRN Reason: Chest Pain Last Admin: 07/20/18 11:59 Dose: 0.4 mg Ondansetron HCl (Zofran) 4 mg IV Q4-6HP PRN PRN Reason: Nausea And Vomiting Oxybutynin Chloride (Ditropan Xl) 5 mg PO BID [facility] Last Admin: 07/21/18 09:47 Dose: 5 mg Pantoprazole Sodium (Protonix) 40 mg PO BIDAC [facility] Last Admin: 07/21/18 06:37 Dose: 40 mg Budesonide/Formoterol Fumarate [Symbicort] 160/4.5 Mcg Inhaler 1 dose INH BID [facility] Last Admin: 07/21/18 08:20 Dose: 1 dose Sodium Biphosphate/Sodium Phosphate (Fleets Adult) 1 dose MT Q3-4DAYS PRN PRN Reason: Constipation Sodium Chloride (Saline Flush) 10 ml IV Q8 [facility] Last Admin: 07/21/18 06:00 Dose: 10 ml Tamsulosin HCl (Flomax) 0.4 mg PO HS [facility] Last Admin: 07/20/18 20:34 Dose: 0.4 mg Zolpidem Tartrate (Ambien) 5 mg PO HSP PRN PRN Reason: Insomnia Medical - PN: A/P - Time Spent With Patient Total time spent is greater than 50% in coordination of care (as documented) at patient's floor/unit and/or counseling patient: 25 - 35 minutes (1) Upper GI bleed Status: Acute Assessment and plan: * Worsening leukocytosis-white count over 16,000. CT chest/UA/blood cultures and sepsis workup. * A. fib with RVR-continue rate control on metoprolol/diltiazem * UGI bleed-secondary to polypectomy 07/14. Eliquis on hold. Hemoglobin uptrending at 9.3. * Blood loss anemia-status post 2 units transfusion. * History of hypertension -continue metoprolol diltiazem/amlodipine. Hold lisinopril * T2 DM on home insulin treatment * COPD continue bronchodilators * History of CAD new aspirin,Eliquis on hold continue beta-dwain TEMI inhibitor * Full code * Prophylaxis ambulation/SCDs PLAN * Leukocytosis workup * Hypertension meds with holding parameters * Rate control measures * CT angiogram chest * Pre-existing medical condition management as above Current Visit: Yes Medical - PN: Qual - Stroke Symptom Onset Unknown: No - VTE Deep Vein Thrombosis/Pulmonary Embolism Present on Admission: No
[2018-07-21] MEDS: APIXABAN 5 MG TABLET PO SCH ×2 (11:27→21:36)
[2018-07-21 21:01] LABS: Appearance,Urine CLOUDY; Bacteria,Urine 1+ /hpf (0); Bilirubin,Urine NEG (NEG); Color,Urine YELLOW; Glucose,Urine (UA) NEGATIVE (NEG); Leukocyte Esterase,Urine 500 /uL (NEG); Mucus,Urine MANY /hpf (0); Protein,Urine 30 mg/dL (NEG); Specific Gravity,Urine 1.056 (1.000-1.035); Urine Blood 0.2 mg/dL (<0.03); Urine RBC 17 /hpf (0-1); Urine Squamous Epithelial Cell 0 /hpf (0-4); Urine WBC > 182 /hpf (0-4); Urobilinogen,Urine NEG (NEG)
[2018-07-21] MEDS: TAMSULOSIN 0.4 MG CAPSULE PO SCH (21:36)
[2018-07-21] MEDS ORDERED: CALCIUM CARBONATE 500 MG TAB.CHEW CHEWED PRN (22:27)
[2018-07-21] MEDS ORDERED: CALCIUM CARBONATE 500 MG TAB.CHEW ONE (22:34)
[2018-07-22] MEDS: ALBUTEROL SULFATE 2.5 MG/3 ML NEBULIZER NEB PRN (02:25)
[2018-07-22] MEDS: 0.9 % SODIUM CHLORIDE 10 ML SYRINGE IV SCH ×4 (05:42→21:22)
[2018-07-22 06:11] LABS: Basophils # (Auto) 0 K/mcL (0.0-0.3); Basophils % (Auto) 0 % (0.0-2.0); Eosinophils # (Auto) 0 K/mcL (0.0-0.7); Eosinophils % (Auto) 0 % (0.0-7.0); Granulocytes % (Auto) 86.6 % (38.0-78.0); Lymphocytes # (Auto) 0.9 K/mcL (1.5-4.8); Lymphocytes % (Auto) 5.9 % (15.5-49.0); Mean Cell Volume 77.8 fL (80.0-100.0); Mean Corpuscular HGB Conc 31.4 g/dL (31.0-36.0); Mean Corpuscular Hemoglobin 24.4 pg (26.0-34.0); Monocytes # (Auto) 1.2 K/mcL (0.1-0.9); Monocytes % (Auto) 7.5 % (1.0-12.0); Platelet Count 199 K/mcL (140-440); RBC 3.45 M/mcL (4.50-5.90); Red Cell Distribution Width 19.9 % (11.5-14.5)
[2018-07-22 06:34] LABS: ALT/SGPT 24 U/l (0-40); Albumin 3.4 gm/dL (3.2-5.2); Albumin/Globulin Ratio 1.2 (1.0-2.3); Alkaline Phosphatase 89 U/L (39-117); Bilirubin,Direct < 0.2 mg/dL (0.0-0.3); Blood Urea Nitrogen 22 mg/dl (8-23); Gamma Glutamyl Transpeptidase 30 U/L (8-61); Uric Acid 4.1 mg/dL (2.5-8.0)
[2018-07-22] MEDS: PANTOPRAZOLE 40 MG TABLET PO SCH ×2 (07:37→16:50)
[2018-07-22] MEDS: INSULIN LISPRO 1 UNIT/0.01 ML UNIT SQ SCH ×4 (07:52→21:21)
[2018-07-22] MEDS: Budesonide/Formoterol Fumarate [Symbicort] 160/4.5 mcg Inhaler INH SCH ×2 (08:25→21:22)
[2018-07-22] MEDS: GABAPENTIN 300 MG CAPSULE PO SCH (08:26)
[2018-07-22] MEDS: INSULIN GLARGINE, HUMAN 1 UNIT/0.01 ML SQ SCH (08:26)
[2018-07-22] MEDS: MAGNESIUM OXIDE 400 MG TABLET PO SCH ×2 (08:26→21:21)
[2018-07-22] MEDS: ASPIRIN 81 MG TAB.CHEW PO SCH (08:26)
[2018-07-22] MEDS: buPROPion 100 MG TABLET PO SCH ×2 (08:26→21:21)
[2018-07-22] MEDS: METOPROLOL TARTRATE 25 MG TABLET PO SCH (08:26)
[2018-07-22] MEDS: APIXABAN 5 MG TABLET PO SCH ×2 (08:27→21:21)
[2018-07-22] MEDS: DOCUSATE SODIUM 100 MG CAPSULE PO SCH ×2 (08:27→21:21)
[2018-07-22] MEDS: DILTIAZEM 120 MG CAP.XL.24H PO SCH (08:27)
[2018-07-22] MEDS: amLODIPine 5 MG TABLET PO SCH (08:57)
[2018-07-22] MEDS: LISINOPRIL 20 MG TABLET PO SCH (08:57)
[2018-07-22] MEDS: OXYBUTYNIN CHLORIDE 5 MG TAB.XL.24H PO SCH (08:57)
[2018-07-22] MEDS: FUROSEMIDE 20 MG TABLET PO SCH (08:58)
[2018-07-22] MEDS ORDERED: DILTIAZEM 120 MG CAP.XL.24H PO ONE (10:00)
[2018-07-22] MEDS: cefTRIAXone 2 GM in DEXTROSE 5% IN WATER 50 ML IV SCH (10:37)
[2018-07-22] MEDS: ACETAMINOPHEN 325 MG TABLET PO PRN ×2 (11:10→16:48)
--- NOTE | 2018-07-22 11:44 | Internal Med Progress Note ---
Medical - PN: Subj Patient information: Note initiated : 07/22/18 at 11:43 am Service Date, if different from initiated Date: [] Patient: Ozzy Fox a 68 y/o M admitted on 07/18/18 for loose black stools, dizziness, low BP. Chief Complaint: [] Interval history: 07/18 Mr. Fox is a 68 year old M with a history of type 2 diabetes mellitus, paroxysmal atrial fibrillation (on Eliquis), coronary artery disease, peripheral arterial disease, chronic anemia who presents with lightheadedness and dark stools. Patient has been worked up for anemia in the last month. He had a colonoscopy on 07/01/2018 which was essentially normal. On 07/14/18 he had an EGD, which time he had a gastric polyp removed, also had biopsies looking for evidence of malabsorption or celiac. That was on Thursday. About Thursday the patient started developing dark stools that were "one cut above tar" in consistency. Subsequently he started feeling lightheaded over the last 2-3 days. This morning while in restorationism sitting up in a pew, was dizzy while at rest (lightheaded), and everyone commented that he was looking very pale. He had further dark stools while there, prior to presenting to the emergency department. In the emergency department, initial labs show hemoglobin of 6.9, he was heme positive. Further history, the patient takes Eliquis twice daily, he continued to take that during his endoscopy procedures. He also takes 81 mg aspirin daily. He does not use clopidogrel or other antiplatelet agents, does not use nonsteroidals. He does take 2 acetaminophen scheduled 3 times a day. Patient is being admitted for treatment of likely upper gastrointestinal hemorrhage with critical acute blood loss anemia. 07/19 Patient is status post upper endoscopy, source of bleeding likely gastric polypectomy site. Clip was placed by Dr. Tamayo. Tolerating full liquid diet currently. Hemoglobin stable, slowly increasing. No complaints, no abdominal pain, no dyspnea, no chest pain. No nausea or vomiting. 07/20 patient in A. fib with RVR. No overnight events. No concerns per staff. Intermittent chest pain however cardiac enzymes negative. Hemoglobin stable at 8.9, cardiac enzymes negative. Possible discharge in 24 hours if adequate rate control achieved. Started on metoprolol/diltiazem 07/21-patient clinically deteriorating with worsening white count at 16.5 up from 11.3, intermittent right-sided chest pain and persistent atrial fibrillation. CT angiogram chest today. Hemoglobin stable. Check UA/blood cultures. Continue evaluation for leukocytosis. Continue telemetry monitoring. Rate control measures including diltiazem/metoprolol. 07/22-persistent atrial fibrillation with RVR, UA significant for pyuria. Start Rocephin for empiric coverage. Increase diltiazem to 180. DC Ditropan due to urine retention. 3 bowel movements today. Denies abdominal pain chest pain shortness of breath or fever or chills. White count down from 16.5-15.5. No further bloody stools. - Constitutional Vitals: Vital Signs Temp Pulse Resp BP Pulse Ox 99 F 146 H 18 100/68 93 07/22/18 08:07 07/21/18 06:54 07/22/18 08:55 07/22/18 08:07 07/22/18 11:33 Period Temp Pulse Resp BP Sys/[place] Pulse Ox Last 24 Hr 99 F-100.5 F 85-114/58-80 83-100 Intake and Output 07/21/18 07/22/18 07/22/18 21:59 05:59 13:59 Intake Total 1020 / 1020 200 / 200 200 / 200 Output Total 350 / 350 551 / 551 Balance 670 / 670 -351 / -351 200 / 200 Weight 185 lb 6.4 oz Intake & Output: Intake & Output 07/21/18 07/22/18 07/22/18 21:59 05:59 13:59 Intake Total 1020 / 1020 200 / 200 200 / 200 Output Total 350 / 350 551 / 551 Balance 670 / 670 -351 / -351 200 / 200 Weight 185 lb 6.4 oz Intake: Oral 1020 / 1020 200 / 200 200 / 200 Output: Urine Catheter Amount 550 / 550 Void Amount 350 / 350 # of times incontinent of urine Other: Meal Dinner Breakfast Percent of Meal Consumed 100% 75% Feeding Ability Independent Urine Appearance Cloudy Cloudy Straight Cloudy Urine Color Dark Yellow Straw Straw Straight Straw Stool Size Moderate Copious Stool Color Brown Brown Stool Consistency Soft Loose Loose # Voids 2 # Bowel Movements 1 2 # of times incontinent of 1 Bowels General appearance: no acute distress Exam: Alert oriented Nonlabored breathing nondistended abdomen Medical - PN: Obj Da - Labs CBC & Chem 7: 07/22/18 04:16 07/22/18 04:16 Labs: Abnormal Lab Results 07/22/18 07/22/18 07/21/18 04:16 04:16 20:08 WBC 15.5 H RBC 3.45 L Hgb 8.4 L Hct 26.8 L MCV 77.8 L MCH 24.4 L RDW 19.9 H Gran % 86.6 H Lymph % (Auto) 5.9 L Gran # 13.4 H Lymph # (Auto) 0.9 L [place] # (Auto) 1.2 H Carbon Dioxide 21 L Anion Gap Glucose 154 H Calcium 8.2 L AST 43 H Lactate Dehydrogenase 351 H Ur Specific [place] 1.056 H Urine Protein 30 A Urine Occult Blood 0.2 A Ur Leukocyte Esterase 500 A Urine RBC 17 H Urine WBC > 182 H Urine Bacteria 1+ A Urine Mucus Many A 07/21/18 07/21/18 07/20/18 04:23 04:23 04:17 WBC 16.5 H RBC 3.70 L Hgb 9.3 L Hct 28.6 L MCV 77.2 L MCH 25.0 L RDW 19.4 H Gran % 85.6 H Lymph % (Auto) 6.6 L Gran # 14.2 H Lymph # (Auto) 1.1 L [place] # (Auto) 1.3 H Carbon Dioxide 20 L 20 L Anion Gap 17.0 H Glucose 119 H Calcium 8.5 L 8.5 L AST Lactate Dehydrogenase 300 H Ur Specific [place] Urine Protein Urine Occult Blood Ur Leukocyte Esterase Urine RBC Urine WBC Urine Bacteria Urine Mucus 07/20/18 07/19/18 07/19/18 04:17 20:42 16:19 WBC 11.3 H RBC 3.67 L 3.77 L Hgb 8.9 L 9.3 L 8.6 L Hct 28.3 L 28.9 L 26.7 L MCV 77.3 L 76.8 L MCH 24.3 L 24.8 L RDW 19.3 H 19.0 H Gran % Lymph % (Auto) 13.4 L 13.9 L Gran # 8.5 H Lymph # (Auto) [place] # (Auto) 1.1 H 1.0 H Carbon Dioxide Anion Gap Glucose Calcium AST Lactate Dehydrogenase Ur Specific [place] Urine Protein Urine Occult Blood Ur Leukocyte Esterase Urine RBC Urine WBC Urine Bacteria Urine Mucus 07/19/18 10:00 WBC RBC Hgb 8.9 L Hct 28.0 L MCV MCH RDW Gran % Lymph % (Auto) Gran # Lymph # (Auto) [place] # (Auto) Carbon Dioxide Anion Gap Glucose Calcium AST Lactate Dehydrogenase Ur Specific [place] Urine Protein Urine Occult Blood Ur Leukocyte Esterase Urine RBC Urine WBC Urine Bacteria Urine Mucus Meds: Medications Acetaminophen (Tylenol) 650 mg MO Q4-6HP PRN PRN Reason: PAIN/FEVER > 101 Acetaminophen (Tylenol) 650 mg PO Q4-6HP PRN PRN Reason: PAIN/FEVER > 101 Last Admin: 07/22/18 11:10 Dose: 650 mg Albuterol Sulfate (Ventolin) 2.5 mg NEB Q4HP PRN PRN Reason: Wheezing Last Admin: 07/22/18 02:25 Dose: 2.5 mg Albuterol Sulfate (Ventolin) 1 puff INH QIDP PRN PRN Reason: BRONCHOSPASM Amlodipine Besylate (Norvasc) 5 mg PO DAILY [facility] Last Admin: 07/22/18 08:57 Dose: Not Given Apixaban (Eliquis) 5 mg PO BID [facility] Last Admin: 07/22/18 08:27 Dose: 5 mg Aspirin (Aspirin) 81 mg PO DAILY [facility] Last Admin: 07/22/18 08:26 Dose: 81 mg Bisacodyl (Dulcolax) 10 mg MO Q2-3DAYS PRN PRN Reason: Constipation Bupropion HCl (Wellbutrin) 100 mg PO BID [facility] Last Admin: 07/22/18 08:26 Dose: 100 mg Calcium Carbonate/Glycine (Tums) 500 - 1,000 mg CHEWED Q4HP PRN PRN Reason: Dyspepsia Dextrose (Dextrose 50%) 0 ml IV UD PRN; Protocol PRN Reason: Hypoglycemia Diagnostic Test (Pha) (Accu-Chek) 1 each FS ACHS [facility] Last Admin: 07/22/18 11:15 Dose: 1 each Diltiazem HCl (Cardizem Cd) 180 mg PO DAILY [facility] Docusate Sodium (Colace) 100 mg PO BID [facility] Last Admin: 07/22/18 08:27 Dose: 100 mg Furosemide (Lasix) 20 mg PO DAILY [facility] Last Admin: 07/22/18 08:58 Dose: 20 mg Gabapentin (Neurontin) 300 mg PO DAILY [facility] Last Admin: 07/22/18 08:26 Dose: 300 mg Glucose (Insta-Glucose) 0 gm PO PRN PRN PRN Reason: Blood Sugar - Low Ceftriaxone Sodium 2 gm/ (Dextrose) 50 mls @ 100 mls/hr IV DAILY [facility] Last Admin: 07/22/18 10:37 Dose: 100 mls/hr Insulin Glargine (Lantus) 20 unit SQ DAILY [facility] Last Admin: 07/22/18 08:26 Dose: 20 unit Insulin Human Lispro (Humalog) 0 unit SQ ACHS [facility]; Protocol Last Admin: 07/22/18 11:30 Dose: 8 units Lisinopril (Zestril) 20 mg PO DAILY [facility] Last Admin: 07/22/18 08:57 Dose: Not Given Magnesium Hydroxide (Milk Of Magnesia) 30 ml PO DAILYP PRN PRN Reason: Constipation Last Admin: 07/20/18 17:11 Dose: 30 ml Magnesium Oxide (Magnesium Oxide) 400 mg PO BID [facility] Last Admin: 07/22/18 08:26 Dose: 400 mg Metoprolol Tartrate (Lopressor) 25 mg PO QDAY [facility] Last Admin: 07/22/18 08:26 Dose: 25 mg Nitroglycerin (Nitrostat) 0.4 mg SL Q5M PRN PRN Reason: Chest Pain Last Admin: 07/20/18 11:59 Dose: 0.4 mg Ondansetron HCl (Zofran) 4 mg IV Q4-6HP PRN PRN Reason: Nausea And Vomiting Oxybutynin Chloride (Ditropan Xl) 5 mg PO BID [facility] Last Admin: 07/22/18 08:57 Dose: Not Given Pantoprazole Sodium (Protonix) 40 mg PO BIDAC [facility] Last Admin: 07/22/18 07:37 Dose: 40 mg Budesonide/Formoterol Fumarate [Symbicort] 160/4.5 Mcg Inhaler 1 dose INH BID [facility] Last Admin: 07/22/18 08:25 Dose: 1 dose Sodium Biphosphate/Sodium Phosphate (Fleets Adult) 1 dose MO Q3-4DAYS PRN PRN Reason: Constipation Sodium Chloride (Saline Flush) 10 ml IV Q8 [facility] Last Admin: 07/22/18 10:38 Dose: 10 ml Tamsulosin HCl (Flomax) 0.4 mg PO HS [facility] Last Admin: 07/21/18 21:36 Dose: 0.4 mg Zolpidem Tartrate (Ambien) 5 mg PO HSP PRN PRN Reason: Insomnia Medical - PN: A/P - Time Spent With Patient Total time spent is greater than 50% in coordination of care (as documented) at patient's floor/unit and/or counseling patient: 25 - 35 minutes (1) Upper GI bleed Status: Acute Assessment and plan: * Early sepsis leukocytosis secondary to complicated UTI started on antibiotic coverage. CT chest unremarkable. Blood and urine cultures pending. The * Complicated UTI-start Rocephin for empiric coverage. Await cultures. * A. fib with RVR-inadequate rate control. Increase diltiazem to 180. Continue metoprolol. Anticoagulation held in light of recent GI bleed * UGI bleed-secondary to polypectomy 07/14. Eliquis on hold. Hemoglobin stable * Acute urinary retention-DC Ditropan * Blood loss anemia-status post 2 units transfusion. * History of hypertension -continue metoprolol diltiazem, Restart TEMI inhibitor , DC Amlodipine * T2 DM on home insulin treatment * COPD continue bronchodilators * History of CAD new aspirin,Eliquis on hold continue beta-dwain TEMI inhibitor * History of BPH continue tamsulosin * Anxiety disorder on bupropion * Full code * Prophylaxis ambulation/SCDs PLAN * DC amlodipine, increase diltiazem to 180 * Restart lisinopril * DC Ditropan * Rocephin for empiric UTI coverage * Pre-existing medical condition management as above Current Visit: Yes Medical - PN: Qual - Stroke Symptom Onset Unknown: No - VTE Deep Vein Thrombosis/Pulmonary Embolism Present on Admission: No
[2018-07-22] MEDS ORDERED: TAMSULOSIN 0.4 MG CAPSULE PO ONE (15:48)
[2018-07-22 16:53] LABS: Creatine Kinase 325 IU/L (24-195); Creatine Kinase MB 9.5 ng/ml (0-4.9)
[2018-07-23] MEDS: 0.9 % SODIUM CHLORIDE 10 ML SYRINGE IV SCH (05:18)
[2018-07-23] MEDS: INSULIN LISPRO 1 UNIT/0.01 ML UNIT SQ SCH ×2 (07:42→11:58)
[2018-07-23] MEDS: PANTOPRAZOLE 40 MG TABLET PO SCH (07:43)
[2018-07-23] MEDS ORDERED: DILTIAZEM 180 MG CAP.XL.24H PO SCH (09:00)
[2018-07-23] MEDS: buPROPion 100 MG TABLET PO SCH (09:16)
[2018-07-23] MEDS: INSULIN GLARGINE, HUMAN 1 UNIT/0.01 ML SQ SCH (09:16)
[2018-07-23] MEDS: Budesonide/Formoterol Fumarate [Symbicort] 160/4.5 mcg Inhaler INH SCH (09:16)
[2018-07-23] MEDS: cefTRIAXone 2 GM in DEXTROSE 5% IN WATER 50 ML IV SCH (09:16)
[2018-07-23] MEDS ORDERED: cefTRIAXone 2 GM VIAL ONE (09:17)
[2018-07-23] MEDS: METOPROLOL TARTRATE 25 MG TABLET PO SCH (09:17)
[2018-07-23] MEDS: MAGNESIUM OXIDE 400 MG TABLET PO SCH (09:17)
[2018-07-23] MEDS: LISINOPRIL 20 MG TABLET PO SCH (09:17)
[2018-07-23] MEDS: DOCUSATE SODIUM 100 MG CAPSULE PO SCH (09:17)
[2018-07-23] MEDS: ASPIRIN 81 MG TAB.CHEW PO SCH (09:17)
[2018-07-23] MEDS: APIXABAN 5 MG TABLET PO SCH (09:17)
[2018-07-23] MEDS: FUROSEMIDE 20 MG TABLET PO SCH (09:18)
[2018-07-23] MEDS: GABAPENTIN 300 MG CAPSULE PO SCH ×2 (09:18→09:36)
--- NOTE | 2018-07-23 09:35 | XRay Report ---
HISTORY: Chest pain and hypertension FINDINGS: The heart is mildly enlarged and has increased significantly in size since 04/07/18. There is congestive heart failure with mild interstitial edema. Several curly B lines are present in the periphery of the lungs. This is superimposed upon underlying mild COPD. No pleural effusion is identified. A stent is well-positioned in the aortic valve IMPRESSION: Congestive heart failure Interpreted and Authenticated by: Joe Figueroa 07/23/18
[2018-07-23] MEDS ORDERED: FUROSEMIDE 20 MG/2 ML VIAL IV ONE (09:53)
--- NOTE | 2018-07-23 10:06 | Internal Med Progress Note ---
Medical - PN: Subj Patient information: Note initiated : 07/23/18 at 10:02 am Service Date, if different from initiated Date: [] Patient: Ozzy Fox a 68 y/o M admitted on 07/18/18 for loose black stools, dizziness, low BP. Chief Complaint: [] Interval history: 07/18 Mr. Fox is a 68 year old M with a history of type 2 diabetes mellitus, paroxysmal atrial fibrillation (on Eliquis), coronary artery disease, peripheral arterial disease, chronic anemia who presents with lightheadedness and dark stools. Patient has been worked up for anemia in the last month. He had a colonoscopy on 07/01/2018 which was essentially normal. On 07/14/18 he had an EGD, which time he had a gastric polyp removed, also had biopsies looking for evidence of malabsorption or celiac. That was on Thursday. About Thursday the patient started developing dark stools that were "one cut above tar" in consistency. Subsequently he started feeling lightheaded over the last 2-3 days. This morning while in worship sitting up in a pew, was dizzy while at rest (lightheaded), and everyone commented that he was looking very pale. He had further dark stools while there, prior to presenting to the emergency department. In the emergency department, initial labs show hemoglobin of 6.9, he was heme positive. Further history, the patient takes Eliquis twice daily, he continued to take that during his endoscopy procedures. He also takes 81 mg aspirin daily. He does not use clopidogrel or other antiplatelet agents, does not use nonsteroidals. He does take 2 acetaminophen scheduled 3 times a day. Patient is being admitted for treatment of likely upper gastrointestinal hemorrhage with critical acute blood loss anemia. 07/19 Patient is status post upper endoscopy, source of bleeding likely gastric polypectomy site. Clip was placed by Dr. Tamayo. Tolerating full liquid diet currently. Hemoglobin stable, slowly increasing. No complaints, no abdominal pain, no dyspnea, no chest pain. No nausea or vomiting. 07/20 patient in A. fib with RVR. No overnight events. No concerns per staff. Intermittent chest pain however cardiac enzymes negative. Hemoglobin stable at 8.9, cardiac enzymes negative. Possible discharge in 24 hours if adequate rate control achieved. Started on metoprolol/diltiazem 07/21-patient clinically deteriorating with worsening white count at 16.5 up from 11.3, intermittent right-sided chest pain and persistent atrial fibrillation. CT angiogram chest today. Hemoglobin stable. Check UA/blood cultures. Continue evaluation for leukocytosis. Continue telemetry monitoring. Rate control measures including diltiazem/metoprolol. 07/22-persistent atrial fibrillation with RVR, UA significant for pyuria. Start Rocephin for empiric coverage. Increase diltiazem to 180. DC Ditropan due to urine retention. 3 bowel movements today. Denies abdominal pain chest pain shortness of breath or fever or chills. White count down from 16.5-15.5. No further bloody stools. 07/23-persistent atrial flutter/ectopic atrial rhythm around 118. Patient started getting increasingly short of breath early this morning. Chest x-ray shows congestive heart failure. Troponins uptrending from 0.57 yesterday to 0.62 this morning. at bedside. On antibiotic coverage for UTI. No further GI bleed. Hemoglobin at 8.3 as of yesterday. Check stool guiac. 3 BM but no bloody bowels. Anticipate transfer to tertiary center in light of elevated troponins and CHF with worsening shortness of breath. Await echocardiogram. - Constitutional Vitals: Vital Signs Temp Pulse Resp BP Pulse Ox 99.1 F H 114 H 18 108/62 92 07/23/18 07:55 07/23/18 07:55 07/23/18 07:55 07/23/18 07:55 07/23/18 08:00 Period Temp Pulse Resp BP Sys/[place] Pulse Ox Last 24 Hr 97.8 F-99.8 F 114 17-20 96-108/61-76 87-97 Intake and Output 07/22/18 07/23/18 07/23/18 21:59 05:59 13:59 Intake Total 510 / 510 360 / 360 Output Total 525 / 525 550 / 550 Balance -15 / -15 -190 / -190 Weight 183 lb 14.4 oz Intake & Output: Intake & Output 07/22/18 07/23/18 07/23/18 21:59 05:59 13:59 Intake Total 510 / 510 360 / 360 Output Total 525 / 525 550 / 550 Balance -15 / -15 -190 / -190 Weight 183 lb 14.4 oz Intake: IV 50 / 50 Rocephin 2 gm In Dextrose 5% in 50 / 50 Water 50 ml @ 100 mls/hr IV DAILY [facility] Rx#:[id number] Oral 460 / 460 360 / 360 Output: Void Amount 525 / 525 550 / 550 Other: Meal Dinner Percent of Meal Consumed 50% Feeding Ability Assist with Tray Set Up Urine Appearance Clear Urine Color Dark Yellow Urine Odor Strong # Voids 1 General appearance: moderate distress Exam: S OB Telemetry persistent a flutter 4 L oxygen Anxious Medical - PN: Obj Da - Labs CBC & Chem 7: 07/22/18 04:16 07/22/18 04:16 Labs: Abnormal Lab Results 07/23/18 07/22/18 07/22/18 04:00 15:50 15:50 WBC RBC Hgb Hct MCV MCH RDW Gran % Lymph % (Auto) Gran # Lymph # (Auto) [place] # (Auto) Carbon Dioxide Glucose Calcium AST Lactate Dehydrogenase Total Creatine Kinase 325 H CK-MB (CK-2) 9.5 H Troponin T 0.62 H* 0.57 H* Ur Specific [place] Urine Protein Urine Occult Blood Ur Leukocyte Esterase Urine RBC Urine WBC Urine Bacteria Urine Mucus 07/22/18 07/22/18 07/21/18 04:16 04:16 20:08 WBC 15.5 H RBC 3.45 L Hgb 8.4 L Hct 26.8 L MCV 77.8 L MCH 24.4 L RDW 19.9 H Gran % 86.6 H Lymph % (Auto) 5.9 L Gran # 13.4 H Lymph # (Auto) 0.9 L [place] # (Auto) 1.2 H Carbon Dioxide 21 L Glucose 154 H Calcium 8.2 L AST 43 H Lactate Dehydrogenase 351 H Total Creatine Kinase CK-MB (CK-2) Troponin T Ur Specific [place] 1.056 H Urine Protein 30 A Urine Occult Blood 0.2 A Ur Leukocyte Esterase 500 A Urine RBC 17 H Urine WBC > 182 H Urine Bacteria 1+ A Urine Mucus Many A 07/21/18 07/21/18 04:23 04:23 WBC 16.5 H RBC 3.70 L Hgb 9.3 L Hct 28.6 L MCV 77.2 L MCH 25.0 L RDW 19.4 H Gran % 85.6 H Lymph % (Auto) 6.6 L Gran # 14.2 H Lymph # (Auto) 1.1 L [place] # (Auto) 1.3 H Carbon Dioxide 20 L Glucose Calcium 8.5 L AST Lactate Dehydrogenase 300 H Total Creatine Kinase CK-MB (CK-2) Troponin T Ur Specific [place] Urine Protein Urine Occult Blood Ur Leukocyte Esterase Urine RBC Urine WBC Urine Bacteria Urine Mucus Meds: Medications Acetaminophen (Tylenol) 650 mg [place] Q4-6HP PRN PRN Reason: PAIN/FEVER > 101 Acetaminophen (Tylenol) 650 mg PO Q4-6HP PRN PRN Reason: PAIN/FEVER > 101 Last Admin: 07/22/18 16:48 Dose: 650 mg Albuterol Sulfate (Ventolin) 2.5 mg NEB Q4HP PRN PRN Reason: Wheezing Last Admin: 07/22/18 02:25 Dose: 2.5 mg Albuterol Sulfate (Ventolin) 1 puff INH QIDP PRN PRN Reason: BRONCHOSPASM Apixaban (Eliquis) 5 mg PO BID [facility] Last Admin: 07/23/18 09:17 Dose: 5 mg Aspirin (Aspirin) 81 mg PO DAILY [facility] Last Admin: 07/23/18 09:17 Dose: 81 mg Bisacodyl (Dulcolax) 10 mg [place] Q2-3DAYS PRN PRN Reason: Constipation Bupropion HCl (Wellbutrin) 100 mg PO BID [facility] Last Admin: 07/23/18 09:16 Dose: 100 mg Calcium Carbonate/Glycine (Tums) 500 - 1,000 mg CHEWED Q4HP PRN PRN Reason: Dyspepsia Dextrose (Dextrose 50%) 0 ml IV UD PRN; Protocol PRN Reason: Hypoglycemia Diagnostic Test (Pha) (Accu-Chek) 1 each FS ACHS [facility] Last Admin: 07/23/18 07:37 Dose: 1 each Diltiazem HCl (Cardizem Cd) 180 mg PO DAILY [facility] Last Admin: 07/23/18 09:17 Dose: 180 mg Docusate Sodium (Colace) 100 mg PO BID [facility] Last Admin: 07/23/18 09:17 Dose: 100 mg Furosemide (Lasix) 20 mg PO DAILY [facility] Last Admin: 07/23/18 09:18 Dose: 20 mg Gabapentin (Neurontin) 300 mg PO HS [facility] Glucose (Insta-Glucose) 0 gm PO PRN PRN PRN Reason: Blood Sugar - Low Ceftriaxone Sodium 2 gm/ (Dextrose) 50 mls @ 100 mls/hr IV DAILY [facility] Last Admin: 07/23/18 09:16 Dose: 100 mls/hr Insulin Glargine (Lantus) 20 unit SQ DAILY [facility] Last Admin: 07/23/18 09:16 Dose: 20 unit Insulin Human Lispro (Humalog) 0 unit SQ ACHS [facility]; Protocol Last Admin: 07/23/18 07:42 Dose: 4 units Lisinopril (Zestril) 20 mg PO DAILY [facility] Last Admin: 07/23/18 09:17 Dose: 20 mg Magnesium Hydroxide (Milk Of Magnesia) 30 ml PO DAILYP PRN PRN Reason: Constipation Last Admin: 07/20/18 17:11 Dose: 30 ml Magnesium Oxide (Magnesium Oxide) 400 mg PO BID [facility] Last Admin: 07/23/18 09:17 Dose: 400 mg Metoprolol Tartrate (Lopressor) 25 mg PO QDAY [facility] Last Admin: 07/23/18 09:17 Dose: 25 mg Nitroglycerin (Nitrostat) 0.4 mg SL Q5M PRN PRN Reason: Chest Pain Last Admin: 07/20/18 11:59 Dose: 0.4 mg Ondansetron HCl (Zofran) 4 mg IV Q4-6HP PRN PRN Reason: Nausea And Vomiting Pantoprazole Sodium (Protonix) 40 mg PO BIDAC [facility] Last Admin: 07/23/18 07:43 Dose: 40 mg Budesonide/Formoterol Fumarate [Symbicort] 160/4.5 Mcg Inhaler 1 dose INH BID [facility] Last Admin: 07/23/18 09:16 Dose: 1 dose Sodium Biphosphate/Sodium Phosphate (Fleets Adult) 1 dose OK Q3-4DAYS PRN PRN Reason: Constipation Sodium Chloride (Saline Flush) 10 ml IV Q8 [facility] Last Admin: 07/23/18 05:18 Dose: 10 ml Tamsulosin HCl (Flomax) 0.8 mg PO HS [facility] Zolpidem Tartrate (Ambien) 5 mg PO HSP PRN PRN Reason: Insomnia Last Admin: 07/22/18 21:21 Dose: 5 mg Medical - PN: A/P - Time Spent With Patient Total time spent is greater than 50% in coordination of care (as documented) at patient's floor/unit and/or counseling patient: 25 - 35 minutes (1) Upper GI bleed Status: Acute Assessment and plan: * Non-ST elevation AL-With elevated troponin.cardiology consult. Likely transfer to tertiary center for further evaluation. No ST changes on EKG * Acute decompensated heart failure-start diuresis. Await echocardiogram. * Complicated UTI continue Rocephin. * A. fib with RVR-inadequate rate control. On higher dose of diltiazem 180. Continue metoprolol. Anticoagulation restarted as no further GI bleed * UGI bleed-secondary to polypectomy post EGD 07/14. Restarted the previous day. Hemoglobin 8.4. * Acute urinary retention-DC Ditropan, straight catheter as needed, increase Flomax * Blood loss anemia-status post 2 units transfusion. * History of hypertension -continue metoprolol diltiazem, Restart TEMI inhibitor , DC'd Amlodipine * T2 DM on basal prandial insulin * COPD continue bronchodilators * History of CAD -continue aspirin,Eliquis, beta-dwain TEMI inhibitor. Status post CABG 1988 * History of BPH -increase Flomax dose * Anxiety disorder on bupropion * Bovine aortic valve replacement, stable * Full code * Prophylaxis ambulation/SCDs PLAN * Start diuresis * cardiology consult * Rocephin for empiric UTI coverage * Await transfer to tertiary center Current Visit: Yes Medical - PN: Qual - Stroke Symptom Onset Unknown: No - VTE Deep Vein Thrombosis/Pulmonary Embolism Present on Admission: No
[2018-07-23 10:29] LABS: Basophils # (Auto) 0 K/mcL (0.0-0.3); Basophils % (Auto) 0 % (0.0-2.0); Eosinophils # (Auto) 0 K/mcL (0.0-0.7); Eosinophils % (Auto) 0.1 % (0.0-7.0); Granulocytes % (Auto) 87.6 % (38.0-78.0); Lymphocytes # (Auto) 0.6 K/mcL (1.5-4.8); Lymphocytes % (Auto) 5.2 % (15.5-49.0); Mean Cell Volume 76.5 fL (80.0-100.0); Mean Corpuscular HGB Conc 31.7 g/dL (31.0-36.0); Mean Corpuscular Hemoglobin 24.3 pg (26.0-34.0); Monocytes # (Auto) 0.8 K/mcL (0.1-0.9); Monocytes % (Auto) 7.1 % (1.0-12.0); Platelet Count 201 K/mcL (140-440); RBC 3.29 M/mcL (4.50-5.90); Red Cell Distribution Width 19.6 % (11.5-14.5)
[2018-07-23 10:42] LABS: ALT/SGPT 94 U/l (0-40); Albumin 3.5 gm/dL (3.2-5.2); Albumin/Globulin Ratio 1.4 (1.0-2.3); Alkaline Phosphatase 131 U/L (39-117); Blood Urea Nitrogen 33 mg/dl (8-23)
[2018-07-23] MEDS ORDERED: DOBUTamine 250 MG in PREMIX 1 BAG IV SCH (10:45)
[2018-07-23] MEDS ORDERED: 0.9 % SODIUM CHLORIDE 250 ML IV SCH ×3 (10:45→11:45)
[2018-07-23] MEDS ORDERED: 0.9 % SODIUM CHLORIDE 500 ML IV ONE (11:40)
[2018-07-23] MEDS ORDERED: NOREPINEPHRINE BITARTRATE 16 MG in 0.9 % SODIUM CHLORIDE 234 ML IV SCH (11:45)
--- NOTE | 2018-07-23 11:57 | Transfer Summary ---
Transfer Discharge Sum: Prov Patient information: Note initiated : 07/23/18 at 11:53 am Service Date, if different from initiated Date: [] Patient: Ozzy Fox 68 y/o M admitted on 07/18/18 for loose black stools, dizziness, low BP. Chief Complaint: [] Date of admission: 07/18/18 15:55 Discharge Date: 07/23/18 Primary care physician: Jhonatan Heller Consults: 07/18/18 Consult to Physician [CONS] Stat Comment: Consulting Provider: Vicente Tamayo Reason For Exam: Physician to Consult Consult to Physician [CONS] Stat Comment: Consulting Provider: Yvonne Dueñas Reason For Exam: Physician to Consult Receiving physician/facility: Jessa Keith [place] stonecutter apprentice hand Transfer Discharge Sum: Diag - Discharge Diagnosis (1) Upper GI bleed Status: Acute Transfer Discharge Sum: Med - Medications Active and Home Medications: Home Medications Furosemide [Lasix] 20 mg PO DAILY 01/11/17 [History Confirmed 07/18/18] Gabapentin [Neurontin] 300 mg PO DAILY 01/11/17 [History Confirmed 07/18/18] Insulin Glargine, Human [Lantus] 20 unit SQ DAILY 01/11/17 [History Confirmed ] Metoprolol Tartrate [Lopressor] 25 mg PO QDAY 01/11/17 [History Confirmed ] Nitroglycerin [Nitrostat] 0.4 mg SL Q5M PRN 01/11/17 [History Confirmed 07/18/18 ] Oxybutynin Chloride [Ditropan Xl] 5 mg PO BID 01/11/17 [History Confirmed ] Potassium Chloride [Kdur] 10 meq PO DAILY 01/11/17 [History Confirmed 07/18/18] Tamsulosin [Flomax] 0.4 mg PO HS 01/11/17 [History Confirmed 07/18/18] buPROPion [Wellbutrin] 100 mg PO BID 01/11/17 [History Confirmed 07/18/18] Apixaban [Eliquis] 5 mg PO BID 06/30/18 [History Confirmed 07/18/18] Albuterol Sulfate [Proair Respiclick] 90 mcg IH QIDP PRN 07/18/18 [History Confirmed 07/18/18] Albuterol Sulfate [Ventolin] 2.5 mg NEB Q6HRT 07/18/18 [History Confirmed ] Aspirin [Ecotrin] 81 mg PO DAILY 07/18/18 [History Confirmed 07/18/18] Budesonide/Formoterol Fumarate [Symbicort 160-4.5 Mcg Inhaler] 10.2 gm IH BID [History Confirmed 07/18/18] Diltiazem HCl [Cartia Xt] 120 mg PO DAILY 07/18/18 [History Confirmed 07/18/18] Lisinopril [Zestril] 20 mg PO DAILY 07/18/18 [History Confirmed 07/18/18] Magnesium Oxide [Magnesium] 500 mg PO BID 07/18/18 [History Confirmed 07/18/18] amLODIPine BESYLATE [Amlodipine Besylate] 5 mg PO DAILY 07/18/18 [History Confirmed 07/18/18] Nitroglycerin [Nitrostat] 0.4 mg SL Q5M PRN 07/20/18 [History Confirmed 07/20/18 ] Active Medications Acetaminophen (Tylenol) 650 mg IA Q4-6HP PRN PRN Reason: PAIN/FEVER > 101 Acetaminophen (Tylenol) 650 mg PO Q4-6HP PRN PRN Reason: PAIN/FEVER > 101 Last Admin: 07/22/18 16:48 Dose: 650 mg Albuterol Sulfate (Ventolin) 2.5 mg NEB Q4HP PRN PRN Reason: Wheezing Last Admin: 07/22/18 02:25 Dose: 2.5 mg Albuterol Sulfate (Ventolin) 1 puff INH QIDP PRN PRN Reason: BRONCHOSPASM Apixaban (Eliquis) 5 mg PO BID [facility] Last Admin: 07/23/18 09:17 Dose: 5 mg Aspirin (Aspirin) 81 mg PO DAILY [facility] Last Admin: 07/23/18 09:17 Dose: 81 mg Bisacodyl (Dulcolax) 10 mg IA Q2-3DAYS PRN PRN Reason: Constipation Bupropion HCl (Wellbutrin) 100 mg PO BID [facility] Last Admin: 07/23/18 09:16 Dose: 100 mg Calcium Carbonate/Glycine (Tums) 500 - 1,000 mg CHEWED Q4HP PRN PRN Reason: Dyspepsia Dextrose (Dextrose 50%) 0 ml IV UD PRN; Protocol PRN Reason: Hypoglycemia Diagnostic Test (Pha) (Accu-Chek) 1 each FS ACHS [facility] Last Admin: 07/23/18 07:37 Dose: 1 each Diltiazem HCl (Cardizem Cd) 180 mg PO DAILY [facility] Last Admin: 07/23/18 09:17 Dose: 180 mg Docusate Sodium (Colace) 100 mg PO BID [facility] Last Admin: 07/23/18 09:17 Dose: 100 mg Furosemide (Lasix) 20 mg PO DAILY [facility] Last Admin: 07/23/18 09:18 Dose: 20 mg Gabapentin (Neurontin) 300 mg PO HS [facility] Glucose (Insta-Glucose) 0 gm PO PRN PRN PRN Reason: Blood Sugar - Low Ceftriaxone Sodium 2 gm/ (Dextrose) 50 mls @ 100 mls/hr IV DAILY [facility] Last Admin: 07/23/18 09:16 Dose: 100 mls/hr Dobutamine HCl/Dextrose 250 mg (/ Premix) 250 mls @ 2.5 mls/hr IV .Q24H [facility]; Protocol Last Titration: 07/23/18 11:46 Dose: 2.5 mcg/kg/min, 12.51 mls/hr Sodium Chloride (Sodium Chloride 0.9%) 250 mls @ 20 mls/hr IV .[id number] [facility] Last Admin: 07/23/18 10:56 Dose: 20 mls/hr Sodium Chloride (Sodium Chloride 0.9%) 250 mls @ 20 mls/hr IV .[id number] [facility] Stop: 07/23/18 23:14 Sodium Chloride (Sodium Chloride 0.9%) 500 mls @ 500 mls/hr IV [facility] Stop: 07/23/18 12:39 Last Admin: 07/23/18 11:47 Dose: 500 mls/hr Norepinephrine Bitartrate 16 (mg/ Sodium Chloride) 250 mls @ 9.37 mls/hr IV Q24H [facility]; Protocol Last Admin: 07/23/18 11:47 Dose: 10 mcg/min, 9.37 mls/hr Sodium Chloride (Sodium Chloride 0.9%) 250 mls @ 20 mls/hr IV .[id number] [facility] Insulin Glargine (Lantus) 20 unit SQ DAILY [facility] Last Admin: 07/23/18 09:16 Dose: 20 unit Insulin Human Lispro (Humalog) 0 unit SQ ACHS [facility]; Protocol Last Admin: 07/23/18 07:42 Dose: 4 units Lisinopril (Zestril) 20 mg PO DAILY [facility] Last Admin: 07/23/18 09:17 Dose: 20 mg Magnesium Hydroxide (Milk Of Magnesia) 30 ml PO DAILYP PRN PRN Reason: Constipation Last Admin: 07/20/18 17:11 Dose: 30 ml Magnesium Oxide (Magnesium Oxide) 400 mg PO BID [facility] Last Admin: 07/23/18 09:17 Dose: 400 mg Metoprolol Tartrate (Lopressor) 25 mg PO QDAY [facility] Last Admin: 07/23/18 09:17 Dose: 25 mg Nitroglycerin (Nitrostat) 0.4 mg SL Q5M PRN PRN Reason: Chest Pain Last Admin: 07/20/18 11:59 Dose: 0.4 mg Ondansetron HCl (Zofran) 4 mg IV Q4-6HP PRN PRN Reason: Nausea And Vomiting Pantoprazole Sodium (Protonix) 40 mg PO BIDAC [facility] Last Admin: 07/23/18 07:43 Dose: 40 mg Budesonide/Formoterol Fumarate [Symbicort] 160/4.5 Mcg Inhaler 1 dose INH BID [facility] Last Admin: 07/23/18 09:16 Dose: 1 dose Sodium Biphosphate/Sodium Phosphate (Fleets Adult) 1 dose IA Q3-4DAYS PRN PRN Reason: Constipation Sodium Chloride (Saline Flush) 10 ml IV Q8 [facility] Last Admin: 07/23/18 05:18 Dose: 10 ml Tamsulosin HCl (Flomax) 0.8 mg PO HS [facility] Zolpidem Tartrate (Ambien) 5 mg PO HSP PRN PRN Reason: Insomnia Last Admin: 07/22/18 21:21 Dose: 5 mg Transfer Discharge Sum: Hosp Hospital course: Transfer diagnosis * Shock unclear etiology cardiogenic versus septic-however no significant endorgan dysfunction except for elevated LFTs(likely hepatic hypoperfusion from shock) continue crystalloid bolus/Levophed/dobutamine. * Non-ST elevation WA-With elevated troponin peak at 0.62.cardiology consulted. Patient transferring to [place] ICU * Acute decompensated heart failure-start diuresis. Await echocardiogram. * Complicated pansensitive E. coli UTI - continue Rocephin. * A. fib/flutter with RVR-previously managed on diltiazem 180/ metoprolol. However will use amiodarone in light of hypotension. Anticoagulation restarted 07/22 as no further GI bleed/negative stool guaiac * UGI bleed-secondary to polypectomy post EGD 07/14. Restarted the previous day. Hemoglobin 8.4->8 over 24 hours. * Acute urinary retention-Munoz's catheter * Blood loss anemia-status post 2 units transfusion on admission. * History of hypertension -hold metoprolol diltiazem, TEMI inhibitor, DC'd Amlodipine * T2 DM on basal prandial insulin * COPD continue bronchodilators * History of CAD -continue aspirin,Eliquis, beta-dwain TEMI inhibitor. Status post CABG 1988 * History of BPH -increase Flomax dose * Anxiety disorder on bupropion * Bovine aortic valve replacement, stable Brief hospital course 07/18 Mr. Fox is a 68 year old M with a history of type 2 diabetes mellitus, paroxysmal atrial fibrillation (on Eliquis), coronary artery disease, peripheral arterial disease, chronic anemia who presents with lightheadedness and dark stools. Patient has been worked up for anemia in the last month. He had a colonoscopy on 07/01/2018 which was essentially normal. On 07/14/18 he had an EGD, which time he had a gastric polyp removed, also had biopsies looking for evidence of malabsorption or celiac. That was on Thursday. About Thursday the patient started developing dark stools that were "one cut above tar" in consistency. Subsequently he started feeling lightheaded over the last 2-3 days. This morning while in orthodoxy sitting up in a pew, was dizzy while at rest (lightheaded), and everyone commented that he was looking very pale. He had further dark stools while there, prior to presenting to the emergency department. In the emergency department, initial labs show hemoglobin of 6.9, he was heme positive. Further history, the patient takes Eliquis twice daily, he continued to take that during his endoscopy procedures. He also takes 81 mg aspirin daily. He does not use clopidogrel or other antiplatelet agents, does not use nonsteroidals. He does take 2 acetaminophen scheduled 3 times a day. Patient is being admitted for treatment of likely upper gastrointestinal hemorrhage with critical acute blood loss anemia. 07/19 Patient is status post upper endoscopy, source of bleeding likely gastric polypectomy site. Clip was placed by Dr. Tamayo. Tolerating full liquid diet currently. Hemoglobin stable, slowly increasing. No complaints, no abdominal pain, no dyspnea, no chest pain. No nausea or vomiting. 07/20 patient in A. fib with RVR. No overnight events. No concerns per staff. Intermittent chest pain however cardiac enzymes negative. Hemoglobin stable at 8.9, Possible discharge in 24 hours if adequate rate control achieved. Started on metoprolol/diltiazem 07/21-patient clinically deteriorating with worsening white count at 16.5 up from 11.3, intermittent right-sided chest pain and persistent atrial fibrillation. CT angiogram chest today. Hemoglobin stable. Check UA/blood cultures. Continue evaluation for leukocytosis. Continue telemetry monitoring. Rate control measures including diltiazem/metoprolol. 07/22-persistent atrial fibrillation with RVR, UA significant for pyuria. Start Rocephin for empiric coverage. Increase diltiazem to 180. DC Ditropan due to urine retention. 3 bowel movements today, stool guiac negative. Denies abdominal pain chest pain shortness of breath or fever or chills. White count down from 16.5-15.5. No further bloody stools. 07/23-persistent atrial flutter/ectopic atrial rhythm around 118. Patient started getting increasingly short of breath early this morning. Chest x-ray shows congestive heart failure. Troponins uptrending from 0.57 yesterday to 0.62 this morning. at bedside. On antibiotic coverage for UTI. No further GI bleed. Hemoglobin at 8.4 as of yesterday. Check stool guiac today. 3 BM but no bloody bowels. Anticipate transfer to tertiary center in light of elevated troponins and CHF with worsening shortness of breath. Await echocardiogram results. Addendum Case discussed with cardiology at [facility]. Recommends transfer however no ICU beds available. Case discussed with [facility] and [facility] no beds available. [place] transfer center coordination underway Also contacted [facility] Per cardiology recommendations patient will be started on dobutamine for following systolics. Heparin will not be initiated for N STEMI in light of apixaban use. Venous lactate 1.2 Addendum Patient accepted at [place] ICU by Dr. Jessa Keith stonecutter apprentice hand. Case also discussed with Dr. Rubens Campos weld engineer. Patient currently on dobutamine/Levophed due to dropping systolic blood pressures. Fluid challenge 1 L NS. White count at 11.5 down from 15 from the previous day. On Rocephin. Unclear etiology for shock is no evidence of bleeding. Hemoglobin has drifted down 1 in the last 48 hours. Serial troponin with peak 0.62 downtrending 0.54 at 9 AM 07/23. Start amiodarone if persistent RVR - Time Spent with Patient Total time spent providing and/or coordinating transfer services: Greater than 30 minutes Transfer Discharge Sum: Exam - Constitutional Vitals: Vital Signs Temp Pulse Resp BP Pulse Ox 07/23/18 10:28 118 H 18 94 07/23/18 08:00 92 07/23/18 07:55 99.1 F H 114 H 18 108/62 92 07/23/18 04:01 18 99/61 94 07/22/18 23:58 99.0 F 18 96/63 94 07/22/18 21:48 99.8 F H 96 07/22/18 20:52 17 105/76 96 07/22/18 20:00 94 07/22/18 16:09 97.8 F 20 106/70 97 07/22/18 12:19 98.1 F 18 101/69 93 Intake and Output 07/22/18 07/23/18 07/23/18 21:59 05:59 13:59 Intake Total 510 / 510 360 / 360 Output Total 525 / 525 550 / 550 Balance -15 / -15 -190 / -190 Intake: IV 50 / 50 3 / 3 Dobutrex 250 mg In Premix 1 Bag @ 0.5 MCG/KG/MIN 2.5 mls/hr IV .Q24H [facility] Rx#:[id number] Rocephin 2 gm In Dextrose 5% in 50 / 50 Water 50 ml @ 100 mls/hr IV DAILY [facility] Rx#:[id number] Oral 460 / 460 360 / 360 Output: Void Amount 525 / 525 550 / 550 Other: Meal Dinner Percent of Meal Consumed 50% Feeding Ability Assist with Tray Set Up Urine Appearance Clear Urine Color Dark Yellow Urine Odor Strong # Voids 1 Weight 183 lb 14.4 oz Transfer Discharge Sum: Data Procedures and tests throughout hospitalization: Pending Orders 07/18/18 Consult to Physician [CONS] Stat Consult to Physician [CONS] Stat 07/18/18 12:32 Acetone [Beta Hydroxybutyrate] Stat 07/18/18 13:06 Beta Hydroxybutyrate Stat 07/18/18 14:48 Resuscitation Status Routine 07/18/18 15:57 Admit as Inpatient Routine Anti-Embolism Devices CONT Bedrest w/bedside commode .ROUTINE cardiac monitor CONT Condition Routine Elevate head of bed .ROUTINE IV Insertion/Management QSHIFT Intake and Output 04,16 Oral hygiene .ROUTINE Weight Monitoring QHS RD to Adjust Diet/Supplements as Needed Routine Continuous pulse oximetry .ROUTINE Oxygen Order .Routine 07/18/18 17:58 Nebulizer management .Routine 07/18/18 18:30 Discharge Criteria .Routine 07/19/18 10:42 Acetaminophen [Tylenol] 650 mg PO Q4-6HP PRN Acetaminophen [Tylenol] 650 mg IA Q4-6HP PRN Albuterol Sulfate [Ventolin] 2.5 mg NEB Q4HP PRN Dextrose 50% See Protocol IV UD PRN Dextrose [Insta-Glucose] See Dose Instructions PO PRN PRN Ondansetron [Zofran] 4 mg IV Q4-6HP PRN Zolpidem [Ambien] 5 mg PO HSP PRN 07/19/18 10:58 Consistent Carbohydrate Diet 07/19/18 11:30 Accu-Chek 1 each FS ACHS Insulin Lispro [HumaLOG] See Protocol SQ ACHS 07/19/18 14:00 0.9 % Sodium Chloride [Saline Flush] 10 ml IV Q8 07/19/18 20:07 Nitroglycerin [Nitrostat] 0.4 mg SL Q5M PRN 07/19/18 20:13 cardiac monitor NOW Notify Provider NOW Vital Signs .POST-OP RECOVERY ABG (RT) NOW Oxygen Order NOW Pulse Oximetry CONT 07/19/18 21:00 Patients Own Medication 1 dose INH BID buPROPion [Wellbutrin] 100 mg PO BID 07/20/18 07:30 Pantoprazole [Protonix] 40 mg PO BIDAC 07/20/18 09:00 Insulin Glargine, Human [Lantus] 20 unit SQ DAILY Metoprolol Tartrate [Lopressor] 25 mg PO QDAY 07/20/18 10:43 Albuterol Sulfate [Ventolin] 1 puff INH QIDP PRN 07/20/18 16:44 Bisacodyl [Dulcolax] 10 mg IA Q2-3DAYS PRN Magnesium Hydroxide [Milk of Magnesia] 30 ml PO DAILYP PRN Na Phos,M-B/Na Phos,Di-Ba [Fleets Adult] 1 dose IA Q3-4DAYS PRN 07/20/18 16:51 Communication order ONCE 07/20/18 21:00 Docusate Sodium [Colace] 100 mg PO BID Magnesium Oxide 400 mg PO BID 07/21/18 09:00 Transfer Discharge Sum: A/P - Problem Maintenance (1) Upper GI bleed Status: Acute - Plan Functional capacity at transfer: bed bound Overall status at transfer: patient is not back to baseline Disposition: Xfer [facility] Quality Measure Queries - VTE Deep Vein Thrombosis/Pulmonary Embolism Present on Admission: No
[2018-07-23] MEDS ORDERED: AMIODARONE 150 MG in DEXTROSE 5% IN WATER 50 ML IV ONE (12:10)
[2018-07-23] MEDS ORDERED: TAMSULOSIN 0.4 MG CAPSULE PO SCH (21:00)
[2018-07-23] MEDS ORDERED: GABAPENTIN 300 MG CAPSULE PO SCH (21:00)
== END 2018-07-23 12:38 | disposition short-term general hospital (02) | DRG 919 ==
LOC: ED 10:55 → ICU 15:53
PROVIDERS: ADMIT Internal Medicine; ATTEND Internal Medicine
CPT/HCPCS: 80047; 82010; 83605; 85014; A9270; J0696; J1250; J1815; J1817; J1940; J2250; J7030; J7040; J7050; J7060; J7120; Q9967

== ENCOUNTER 2019-07-03 17:11 | Inpatient (IN) ==
[2019-07-03] MEDS ORDERED: DILTIAZEM 25 MG/5 ML VIAL IV ONE (17:21)
[2019-07-03] MEDS ORDERED: ASPIRIN 81 MG TAB.CHEW CHEWED ONE (17:24)
[2019-07-03] MEDS ORDERED: NITROGLYCERIN 0.4 MG TAB.SUBL SL PRN (17:25)
[2019-07-03] MEDS ORDERED: DILTIAZEM 125 MG in DEXTROSE 5% IN WATER 100 ML IV SCH (17:30)
[2019-07-03] MEDS ORDERED: ONDANSETRON 4 MG/2 ML VIAL IV ONE (17:34)
--- NOTE | 2019-07-03 17:37 | Emergency Department Note ---
Chest Pain HPI - General Chief Complaint: Chest Pain Stated Complaint: chest pain, elevated HR Time Seen by Provider: 07/03/19 17:20 Source: patient Mode of arrival: ambulatory Limitations: no limitations - History of Present Illness HPI Narrative: This patient started having substernal chest pain about 3 hours ago. He also has atrial fib with RVR with a rate of high as 140. He has a history of coronary artery disease with bypass surgery 1989 3 stents a year ago and a previous aortic valve prosthesis. Also has had nausea and vomiting today. - Related Data Home Medications Medication Instructions Recorded Confirmed Furosemide [Lasix] 20 mg PO DAILY 01/11/17 07/03/19 Gabapentin [Neurontin] 300 mg PO DAILY 01/11/17 07/03/19 Insulin Glargine, Human [Lantus] 20 unit SQ DAILY 01/11/17 07/03/19 Metoprolol Tartrate [Lopressor] 25 mg PO QDAY 01/11/17 07/03/19 Nitroglycerin [Nitrostat] 0.4 mg SL Q5M PRN 01/11/17 07/03/19 Oxybutynin Chloride [Ditropan Xl] 5 mg PO BID 01/11/17 07/03/19 Potassium Chloride [Kdur] 10 meq PO DAILY 01/11/17 07/03/19 Tamsulosin [Flomax] 0.4 mg PO HS 01/11/17 07/03/19 buPROPion [Wellbutrin] 100 mg PO BID 01/11/17 07/03/19 Apixaban [Eliquis] 5 mg PO BID 06/30/18 07/03/19 Albuterol Sulfate [Proair 90 mcg IH QIDP PRN 07/18/18 07/03/19 Respiclick] Albuterol Sulfate [Ventolin] 2.5 mg NEB Q6HRT 07/18/18 07/03/19 Aspirin [Ecotrin] 81 mg PO DAILY 07/18/18 07/03/19 Budesonide/Formoterol Fumarate 10.2 gm IH BID 07/18/18 07/03/19 [Symbicort 160-4.5 Mcg Inhaler] Diltiazem HCl [Cartia Xt] 120 mg PO DAILY 07/18/18 07/03/19 Lisinopril [Zestril] 20 mg PO DAILY 07/18/18 07/03/19 Magnesium Oxide [Magnesium] 500 mg PO BID 07/18/18 07/03/19 amLODIPine BESYLATE [Amlodipine 5 mg PO DAILY 07/18/18 07/03/19 Besylate] Nitroglycerin [Nitrostat] 0.4 mg SL Q5M PRN 07/20/18 07/03/19 Allergies Allergy/AdvReac Type Severity Reaction Status Date / Time metformin AdvReac Mild GI Upset Verified 07/03/19 17:23 Review of Systems All systems ED: reviewed and negative except as stated. Chest Pain PMH - Past Medical History Medical history: Reports: atrial fibrillation, COPD, CAD (coronary artery disease), DM, valvular heart disease (Aortic valve replacement), other (DVT, duodenal rupture) - Social History smoking status: Former smoker Physical Exam Limitations: no limitations General appearance: alert Head: atraumatic Eye: Present: normal appearance ENT: Present: normal exam Neck: Present: normal inspection Chest: Present: normal inspection Respiratory: Present: normal lung sounds bilaterally Cardiovascular: Present: tachycardia, irregular rhythm, normal heart sounds Abdominal: Present: soft. Absent: distention, tenderness Neurological: Present: alert Psychiatric: Present: normal affect Skin: Present: warm, dry Course Vital Signs Temperature 97.0 F 07/03/19 17:16 Blood Pressure 161/84 07/03/19 17:16 Temperature 99.4 F H 07/04/19 05:00 Pulse Rate 91 H 07/04/19 05:01 Respiratory Rate 21 07/04/19 05:01 Blood Pressure 145/56 07/04/19 05:01 Pulse Oximetry (%) 95 07/04/19 05:01 Chest Pain - [facility] Narrative Medical decision making narrative: Patient is a troponin was initially 0.11 came down to 0.07. It was elevated a year ago when he had a stent placed. He was given diltiazem and his heart rate finally came down to around 90-100. Initially given some nitro which dropped his blood pressure but that came up with some fluid. His pain resolved and he felt better after his heart rate came down. I discussed the case with Dr. Nair and he will be admitted to the hospital for atrial fib RVR - Lab Data Lab results reviewed: Yes I reviewed the patient's lab results. Result diagrams: 07/03/19 17:30 07/03/19 17:29 Lab Results 07/03/19 07/03/19 07/03/19 Range/Units 17:29 17:29 17:30 WBC 24.3 H (4.5-11.0) K/mcL RBC 5.19 (4.50-5.90) M/mcL Hgb 14.5 (13.5-16.5) g/dL Hct 44.9 (41.0-55.0) % MCV 86.5 (80.0-100.0) fL MCH 28.0 (26.0-34.0) pg MCHC 32.4 (31.0-36.0) g/dL RDW 16.1 H (11.5-14.5) % Plt Count 322 (140-440) K/mcL MPV 7.8 (7.4-10.4) fL Gran % 83.5 H (38.0-78.0) % Lymph % (Auto) 10.2 L (15.5-49.0) % [place] % (Auto) 6.1 (1.0-12.0) % Eos % (Auto) 0 (0.0-7.0) % Baso % (Auto) 0.2 (0.0-2.0) % Gran # 20.3 H (1.8-8.0) K/mcL Lymph # (Auto) 2.5 (1.5-4.8) K/mcL [place] # (Auto) 1.5 H (0.1-0.9) K/mcL Eos # (Auto) 0 (0.0-0.7) K/mcL Baso # (Auto) 0 (0.0-0.3) K/mcL D-Dimer (0.00-0.40) ug/ml VBG Lactic Acid (0.5-2.0) mmol/L Sodium 134 (133-145) mmol/L Potassium 3.9 (3.3-5.1) mmol/L Chloride 95 L (96-108) mmol/L Carbon Dioxide 22 (22-30) mmol/L Anion Gap 17.0 H (8-16) BUN 29 H (8-23) mg/dl Creatinine 1.3 H (0.7-1.2) mg/dl GFR Calculation 55 Glucose 241 H (70-105) mg/dL Calcium 8.6 (8.6-10.4) mg/dl Total Bilirubin 0.6 (0.0-1.0) mg/dL AST 23 (0-37) U/l ALT 15 (0-40) U/l Alkaline Phosphatase 83 (39-117) U/L Total Creatine Kinase 277 H (24-195) IU/L CK-MB (CK-2) 4.7 (0-4.9) ng/ml Myoglobin 194 H (28-72) ng/ml Troponin T (0-0.03) ng/ml NT-Pro-B Natriuret Pep 2894.0 H (0-125) pg/ml Total Protein 6.8 (5.9-8.4) gm/dL Albumin 4.1 (3.2-5.2) gm/dL Globulin 2.7 (2.2-3.7) gm/dL Albumin/Globulin Ratio 1.5 (1.0-2.3) Urine Color Urine Appearance Urine pH (5.0-9.0) Ur Specific [place] (1.000-1.035) Urine Protein (NEG) mg/dL Urine Glucose (UA) (NEG) mg/dL Urine Ketones (NEG) mg/dL Urine Occult Blood (<0.03) mg/dL Urine Nitrate (NEG) Urine Bilirubin (NEG) mg/dL Urine Urobilinogen (NEG) mg/dL Ur Leukocyte Esterase (NEG) /uL Urine RBC (0-1) /hpf Urine WBC (0-4) /hpf Ur Squamous Epith Cells (0-4) /hpf Urine Bacteria (0) /hpf Urine Mucus (0) /hpf Ur Culture Indicated? 07/03/19 07/03/19 07/03/19 Range/Units 17:30 17:30 18:30 WBC (4.5-11.0) K/mcL RBC (4.50-5.90) M/mcL Hgb (13.5-16.5) g/dL Hct (41.0-55.0) % MCV (80.0-100.0) fL MCH (26.0-34.0) pg MCHC (31.0-36.0) g/dL RDW (11.5-14.5) % Plt Count (140-440) K/mcL MPV (7.4-10.4) fL Gran % (38.0-78.0) % Lymph % (Auto) (15.5-49.0) % [place] % (Auto) (1.0-12.0) % Eos % (Auto) (0.0-7.0) % Baso % (Auto) (0.0-2.0) % Gran # (1.8-8.0) K/mcL Lymph # (Auto) (1.5-4.8) K/mcL [place] # (Auto) (0.1-0.9) K/mcL Eos # (Auto) (0.0-0.7) K/mcL Baso # (Auto) (0.0-0.3) K/mcL D-Dimer 3.98 H (0.00-0.40) ug/ml VBG Lactic Acid 2.2 H (0.5-2.0) mmol/L Sodium (133-145) mmol/L Potassium (3.3-5.1) mmol/L Chloride (96-108) mmol/L Carbon Dioxide (22-30) mmol/L Anion Gap (8-16) BUN (8-23) mg/dl Creatinine (0.7-1.2) mg/dl GFR Calculation Glucose (70-105) mg/dL Calcium (8.6-10.4) mg/dl Total Bilirubin (0.0-1.0) mg/dL AST (0-37) U/l ALT (0-40) U/l Alkaline Phosphatase (39-117) U/L Total Creatine Kinase (24-195) IU/L CK-MB (CK-2) (0-4.9) ng/ml Myoglobin (28-72) ng/ml Troponin T 0.11 H* (0-0.03) ng/ml NT-Pro-B Natriuret Pep (0-125) pg/ml Total Protein (5.9-8.4) gm/dL Albumin (3.2-5.2) gm/dL Globulin (2.2-3.7) gm/dL Albumin/Globulin Ratio (1.0-2.3) Urine Color Urine Appearance Urine pH (5.0-9.0) Ur Specific [place] (1.000-1.035) Urine Protein (NEG) mg/dL Urine Glucose (UA) (NEG) mg/dL Urine Ketones (NEG) mg/dL Urine Occult Blood (<0.03) mg/dL Urine Nitrate (NEG) Urine Bilirubin (NEG) mg/dL Urine Urobilinogen (NEG) mg/dL Ur Leukocyte Esterase (NEG) /uL Urine RBC (0-1) /hpf Urine WBC (0-4) /hpf Ur Squamous Epith Cells (0-4) /hpf Urine Bacteria (0) /hpf Urine Mucus (0) /hpf Ur Culture Indicated? 07/03/19 07/03/19 Range/Units 20:06 21:25 WBC (4.5-11.0) K/mcL RBC (4.50-5.90) M/mcL Hgb (13.5-16.5) g/dL Hct (41.0-55.0) % MCV (80.0-100.0) fL MCH (26.0-34.0) pg MCHC (31.0-36.0) g/dL RDW (11.5-14.5) % Plt Count (140-440) K/mcL MPV (7.4-10.4) fL Gran % (38.0-78.0) % Lymph % (Auto) (15.5-49.0) % [place] % (Auto) (1.0-12.0) % Eos % (Auto) (0.0-7.0) % Baso % (Auto) (0.0-2.0) % Gran # (1.8-8.0) K/mcL Lymph # (Auto) (1.5-4.8) K/mcL [place] # (Auto) (0.1-0.9) K/mcL Eos # (Auto) (0.0-0.7) K/mcL Baso # (Auto) (0.0-0.3) K/mcL D-Dimer (0.00-0.40) ug/ml VBG Lactic Acid (0.5-2.0) mmol/L Sodium (133-145) mmol/L Potassium (3.3-5.1) mmol/L Chloride (96-108) mmol/L Carbon Dioxide (22-30) mmol/L Anion Gap (8-16) BUN (8-23) mg/dl Creatinine (0.7-1.2) mg/dl GFR Calculation Glucose (70-105) mg/dL Calcium (8.6-10.4) mg/dl Total Bilirubin (0.0-1.0) mg/dL AST (0-37) U/l ALT (0-40) U/l Alkaline Phosphatase (39-117) U/L Total Creatine Kinase (24-195) IU/L CK-MB (CK-2) (0-4.9) ng/ml Myoglobin (28-72) ng/ml Troponin T 0.07 H* (0-0.03) ng/ml NT-Pro-B Natriuret Pep (0-125) pg/ml Total Protein (5.9-8.4) gm/dL Albumin (3.2-5.2) gm/dL Globulin (2.2-3.7) gm/dL Albumin/Globulin Ratio (1.0-2.3) Urine Color Yellow Urine Appearance Clear Urine pH 6.0 (5.0-9.0) Ur Specific [place] 1.021 (1.000-1.035) Urine Protein Neg (NEG) mg/dL Urine Glucose (UA) 50 A (NEG) mg/dL Urine Ketones 20 A (NEG) mg/dL Urine Occult Blood Neg (<0.03) mg/dL Urine Nitrate Neg (NEG) Urine Bilirubin Neg (NEG) mg/dL Urine Urobilinogen Neg (NEG) mg/dL Ur Leukocyte Esterase Neg (NEG) /uL Urine RBC < 1 (0-1) /hpf Urine WBC < 1 (0-4) /hpf Ur Squamous Epith Cells 1 (0-4) /hpf Urine Bacteria 0 (0) /hpf Urine Mucus Few (0) /hpf Ur Culture Indicated? No - Radiology Data Radiology results reviewed: Yes I reviewed the patient's radiology results. Disposition Pt seen by MEAT STOCK CLERK/PA only: No Clinical Impression: Atrial fibrillation with rapid ventricular response Disposition: Xfer As Inpt ([facility]) Condition: Fair
[2019-07-03] MEDS ORDERED: ONDANSETRON 4 MG/2 ML VIAL ONE (17:38)
[2019-07-03 18:09] LABS: Basophils # (Auto) 0 K/mcL (0.0-0.3); Basophils % (Auto) 0.2 % (0.0-2.0); Eosinophils # (Auto) 0 K/mcL (0.0-0.7); Eosinophils % (Auto) 0 % (0.0-7.0); Granulocytes % (Auto) 83.5 % (38.0-78.0); Hematocrit 44.9 % (41.0-55.0); Hemoglobin 14.5 g/dL (13.5-16.5); Lymphocytes # (Auto) 2.5 K/mcL (1.5-4.8); Lymphocytes % (Auto) 10.2 % (15.5-49.0); Mean Cell Volume 86.5 fL (80.0-100.0); Mean Corpuscular HGB Conc 32.4 g/dL (31.0-36.0); Mean Platelet Volume 7.8 fL (7.4-10.4); Monocytes # (Auto) 1.5 K/mcL (0.1-0.9); Monocytes % (Auto) 6.1 % (1.0-12.0); Platelet Count 322 K/mcL (140-440); RBC 5.19 M/mcL (4.50-5.90); Red Cell Distribution Width 16.1 % (11.5-14.5); WBC 24.3 K/mcL (4.5-11.0)
--- NOTE | 2019-07-03 18:10 | XRay Report ---
CLINICAL INFORMATION: Chest pain COMPARISON: 02/02/2019 TECHNIQUE: PA and Lateral views FINDINGS: The heart size, mediastinum and pulmonary vessels are unremarkable. The lungs are clear. There are no effusions. The bones and soft tissues are within normal limits. IMPRESSION: Normal chest. Interpreted and Authenticated by: Chris Pack 07/03/19
[2019-07-03 18:33] LABS: Creatine Kinase MB 4.7 ng/ml (0-4.9); Myoglobin 194 ng/ml (28-72)
[2019-07-03 18:36] LABS: ALT/SGPT 15 U/l (0-40); AST/SGOT 23 U/l (0-37); Albumin 4.1 gm/dL (3.2-5.2); Albumin/Globulin Ratio 1.5 (1.0-2.3); Alkaline Phosphatase 83 U/L (39-117); Bilirubin,Total 0.6 mg/dL (0.0-1.0); Blood Urea Nitrogen 29 mg/dl (8-23); Calcium 8.6 mg/dl (8.6-10.4); Carbon Dioxide 22 mmol/L (22-30); Creatine Kinase 277 IU/L (24-195); Globulin 2.7 gm/dL (2.2-3.7); Glomerular Filtration Rate 55; Glucose 241 mg/dL (70-105)
[2019-07-03 18:53] LABS: Chloride 95 mmol/L (96-108)
[2019-07-03 23:39] LABS: Appearance,Urine CLEAR; Bacteria,Urine 0 /hpf (0); Bilirubin,Urine NEG (NEG); Color,Urine YELLOW; Culture Indicated,Urine NO; Glucose,Urine (UA) 50 mg/dL (NEG); Ketones,Urine 20 mg/dL (NEG); Leukocyte Esterase,Urine NEG /uL (NEG); Mucus,Urine FEW /hpf (0); Nitrate,Urine NEG (NEG); Protein,Urine NEG (NEG); Specific Gravity,Urine 1.021 (1.000-1.035); Urine Blood NEG mg/dL (<0.03); Urine RBC < 1 /hpf (0-1); Urine Squamous Epithelial Cell 1 /hpf (0-4); Urine WBC < 1 /hpf (0-4); Urobilinogen,Urine NEG (NEG)
--- NOTE | 2019-07-03 23:45 | Internal Med History&Physical ---
Medical - H&P: [facility] Patient information: Note initiated : 07/03/19 at 11:39 pm Service Date, if different from initiated Date: [] Patient: Ozzy Fox a 69 y/o M admitted on for chest pain, elevated HR. Chief Complaint: [] Chief complaint: Chest pain/feeling weak and malaise History of present illness: Mr. Fox is a 69 year old M with no history of coronary artery disease status post CABG in and subsequently 2018 after cardiogenic shock. He has been his baseline state of health until over the last couple of days has been feeling weak with fatigue malaise and URI symptoms. Roughly 3 hours prior to presentation he started experiencing substernal chest pain along with associated nausea. pain described as sharp retrosternal without radiation associated with palpitation. No diaphoresis but associated nausea. Denies lightheadedness or dizziness. Denies fever shaking chills He presents to the ER with above symptoms. Initial work-up was consistent with A. fib with RVR, patient was started on diltiazem drip, initial white count was 24,[address] abdomen chest was performed which revealed right basilar infiltrate/pleural effusion. Subsequently hospitalist service was consulted At the time of evaluation patient is quite distressed. He complains of heartburn, fatigue. His chest pain has improved since. He denies dysuria, abdominal pain but endorses to few episodes of diarrhea. He denies diaphoresis/chest palpitations/lightheadedness/vision changes. Throughout the course of my evaluation patient demonstrated a flat affect Review of systems A 10 point review system was performed and is negative except for one discussed above Medical - H&P: PMH Medical history: l history: Coronary artery disease, status post bypass 5 in 1993 and redo CABG 2017 following cardiogenic shock and emergent transfer [facility] Atrial fibrillation, paroxysmal, on Eliquis Aortic valvular disease, status post transcatheter aVR 10/2016 Type 2 diabetes mellitus Peripheral arterial disease with claudication COPD PTSD BPH Neuropathy History of ruptured duodenum about 5 years ago, treated at [facility] Surgical history: Coronary artery bypass grafting 1993 Transcatheter bioprosthetic AVR 10/29/2016 Repair of viscous rupture, partially 5 years ago Pertinent family history: No family history of GI disease Social history: The patient lives with his . He stopped smoking about 15 years ago. No alcohol in 20 years. Medical - H&P: Meds Home Medications Medication Instructions Recorded Confirmed Type Furosemide [Lasix] 20 mg PO DAILY 01/11/17 07/03/19 History Gabapentin [Neurontin] 300 mg PO DAILY 01/11/17 07/03/19 History Insulin Glargine, Human [Lantus] 20 unit SQ DAILY 01/11/17 07/03/19 History Metoprolol Tartrate [Lopressor] 25 mg PO QDAY 01/11/17 07/03/19 History Nitroglycerin [Nitrostat] 0.4 mg SL Q5M PRN 01/11/17 07/03/19 History Oxybutynin Chloride [Ditropan Xl] 5 mg PO BID 01/11/17 07/03/19 History Potassium Chloride [Kdur] 10 meq PO DAILY 01/11/17 07/03/19 History Tamsulosin [Flomax] 0.4 mg PO HS 01/11/17 07/03/19 History buPROPion [Wellbutrin] 100 mg PO BID 01/11/17 07/03/19 History Apixaban [Eliquis] 5 mg PO BID 06/30/18 07/03/19 History Albuterol Sulfate [Proair 90 mcg IH QIDP PRN 07/18/18 07/03/19 History Respiclick] Albuterol Sulfate [Ventolin] 2.5 mg NEB Q6HRT 07/18/18 07/03/19 History Aspirin [Ecotrin] 81 mg PO DAILY 07/18/18 07/03/19 History Budesonide/Formoterol Fumarate 10.2 gm IH BID 07/18/18 07/03/19 History [Symbicort 160-4.5 Mcg Inhaler] Diltiazem HCl [Cartia Xt] 120 mg PO DAILY 07/18/18 07/03/19 History Lisinopril [Zestril] 20 mg PO DAILY 07/18/18 07/03/19 History Magnesium Oxide [Magnesium] 500 mg PO BID 07/18/18 07/03/19 History amLODIPine BESYLATE [Amlodipine 5 mg PO DAILY 07/18/18 07/03/19 History Besylate] Nitroglycerin [Nitrostat] 0.4 mg SL Q5M PRN 12/04/18 11/17/19 History Allergies Allergy/AdvReac Type Severity Reaction Status Date / Time metformin AdvReac Mild GI Upset Verified 07/03/19 17:23 Medical - H&P: Exam - Constitutional Vitals: Temp Pulse Resp BP Pulse Ox 97.0 F 94 H 28 H 145/72 95 07/03/19 17:16 07/03/19 23:16 07/03/19 23:16 07/03/19 23:16 07/03/19 23:16 General appearance: disheveled Exam: Anxious and flat affect Head normocephalic Oral cavity dry No ear nose discharge Neck no lymph apathy S1-S2 irregular rhythm tachycardia Midline sternotomy incision Diminished breath sounds bases with late inspiratory crackles right posterior lateral chest Abdomen soft nontender nondistended Lower extremity no sinus clubbing no joint swelling Skin no suspicious lesion Psych alert cooperative but anxious Neuro nonfocal Medical - H&P: Reslt - Labs CBC & Chem 7: 07/03/19 17:30 07/03/19 17:29 Labs: Short CBC 07/03/19 Range/Units 17:30 WBC 24.3 H (4.5-11.0) K/mcL Hgb 14.5 (13.5-16.5) g/dL Hct 44.9 (41.0-55.0) % Plt Count 322 (140-440) K/mcL BMP 07/03/19 17:29 Sodium 134 Potassium 3.9 Chloride 95 L Carbon Dioxide 22 BUN 29 H Creatinine 1.3 H Glucose 241 H Calcium 8.6 Cardiac Enzymes 07/03/19 07/03/19 07/03/19 Range/Units 17:29 17:30 20:06 Total Creatine Kinase 277 H (24-195) IU/L CK-MB (CK-2) 4.7 (0-4.9) ng/ml Troponin T 0.11 H* 0.07 H* (0-0.03) ng/ml Liver Function 07/03/19 Range/Units 17:29 Total Bilirubin 0.6 (0.0-1.0) mg/dL AST 23 (0-37) U/l ALT 15 (0-40) U/l Alkaline Phosphatase 83 (39-117) U/L Albumin 4.1 (3.2-5.2) gm/dL Medical - H&P: A/P (1) Atrial fibrillation with rapid ventricular response Current visit: Yes Status: Acute * Atrial fibrillation with RVR-continue rate control measures. On diltiazem however if evidence of hypotension start amiodarone. On Eliquis for CVA prophylaxis. * Right lower lobe pneumonia-antibiotic coverage * Severe sepsis with multiple endorgan dysfunction including elevated troponin/elevated creatinine, lactate and white count over 24,000. Continue lactic acid trending/monitor renal function. Broad antibiotic coverage/pancultures. Vasopressors to keep map at goal * Acute gastroenteritis-continue supportive measures. * Mild HERMILO-continue monitor renal function * History of CAD status post CABG X2 -elevated troponin but downtrending. Continue home medications including aspirin/apixaban/metoprolol/nitrate. Hold TEMI inhibitor until sepsis resolved and renal function improves * HTN-hold medications until sepsis resolves * T2 DM on basal prandial insulin * COPD continue bronchodilators/inhaled steroids * History of BPH - continue Flomax * Neuropathy continue gabapentin * Anxiety continue bupropion * Bovine aortic valve replacement, stable * Full code * Prophylaxis on Eliquis Plan * Inpatient ICU admit, patient critically ill with Edge[place] II score 18. * Rate control measures * Sepsis management per guidelines * Broad antibiotic coverage * Crystalloid/vasopressors as indicated to keep map at goal * Monitor renal function * Prior medical condition management home meds except for antihypertensives Time spent on history and physical in excess of 65 minutes. An additional 35 minutes critical care time spent on management of A. fib RVR/se kaykay sepsis reviewing labs imaging/discussion with physician and care coordination
[2019-07-03] MEDS ORDERED: PHENobarb/HYOSCY/ATROPINE/SCOP 1 DOSE BOTTLE PO ONE (23:54)
[2019-07-03] MEDS ORDERED: PANTOPRAZOLE 40 MG TABLET PO ONE (23:55)
[2019-07-04] MEDS ORDERED: PHENobarb/HYOSCY/ATROPINE/SCOP 1 DOSE BOTTLE PO ONE (00:07)
[2019-07-04] MEDS ORDERED: ESOMEPRAZOLE 40 MG VIAL IV STA (00:29)
[2019-07-04] MEDS ORDERED: ESOMEPRAZOLE 40 MG VIAL IV SCH (00:30)
[2019-07-04] MEDS ORDERED: DEXTROSE 50% 50 ML VIAL IV PRN (01:16)
[2019-07-04] MEDS ORDERED: ACETAMINOPHEN 650 MG/65 ML BOTTLE IV PRN (01:16)
[2019-07-04] MEDS ORDERED: ONDANSETRON 4 MG/2 ML VIAL IV PRN (01:16)
[2019-07-04] MEDS ORDERED: BISACODYL 10 MG SUPP.RECT PR PRN (01:16)
[2019-07-04] MEDS ORDERED: MAGNESIUM SULFATE 2 GM/50 ML BAG IV PRN (01:16)
[2019-07-04] MEDS ORDERED: POTASSIUM CHLORIDE 20 MEQ PACKET PO PRN (01:16)
[2019-07-04] MEDS ORDERED: DEXTROSE 31 GM ORAL.SUSP PO PRN (01:16)
[2019-07-04] MEDS ORDERED: POTASSIUM CHLORIDE 40 MEQ in DEXTROSE 5% IN WATER 500 ML IV PRN (01:16)
[2019-07-04] MEDS ORDERED: MAGNESIUM HYDROXIDE 30 ML ORAL.SUSP PO PRN (01:16)
[2019-07-04] MEDS ORDERED: METOPROLOL TARTRATE 5 MG/5 ML VIAL IV PRN (01:16)
[2019-07-04] MEDS ORDERED: ACETAMINOPHEN 325 MG TABLET PO PRN (01:16)
[2019-07-04] MEDS: PIPERACILLIN SODIUM/TAZOBACTAM 3.375 GM in DEXTROSE 5% IN WATER 50 ML IV SCH ×5 (02:02→23:38)
[2019-07-04] MEDS: 0.9 % SODIUM CHLORIDE 1,000 ML IV SCH ×2 (02:02→21:53)
[2019-07-04] MEDS: IPRATROPIUM/ALBUTEROL 3 ML AMPUL.NEB NEB SCH ×4 (03:23→14:53)
[2019-07-04] MEDS: DILTIAZEM 125 MG in DEXTROSE 5% IN WATER 100 ML IV SCH ×3 (05:51→16:38)
--- NOTE | 2019-07-04 06:20 | Cat Scan Report ---
CLINICAL INFORMATION: Infection - evaluate source COMPARISON: Chest, abdomen and pelvic CT 11/03/[address] 07/21/2018 TECHNIQUE: 0.625 mm axial slices were obtained from the lung apices through the subtrochanteric regions without intravenous contrast. 2.5 mm Sagittal, coronal and axial reformatted images were processed and reviewed at bone, lung and soft tissue windows. 7 mm axial MIP images were also reconstructed to optimize pulmonary nodule detection.The exam was performed using radiation dose optimization techniques including, but not limited to, automated exposure control, adjustment of the mA and/or kV according to patient size and use of iterative reconstruction technique. FINDINGS: Pulmonary parenchymal windows show as moderate bandlike consolidative infiltrate or atelectasis in the posterior right lower lobe with small right pleural effusion. There is strandy fibrosis or atelectasis in the lateral basilar segment right lower lobe. Small left pleural effusion. Mild underlying centrilobular emphysema seen - as before. Mediastinal windows through the noncontrasted central pulmonary arteries to be mildly enlarged - the main pulmonary artery 3.5 cm diameter. Findings compatible pulmonary hypertension related to COPD. The noncontrast thoracic aorta is normal in diameter. There is a graft in the aortic valve region which is grossly normal. Heart is mildly enlarged with heavy calcific plaque in the coronary arteries There is no adenopathy in the mediastinal hilar or axillary regions. Esophagus is grossly normal. Thyroid is unremarkable. Abdominal images again show multiple small stones layering dependently within the gallbladder. Gallbladder wall is normal thickness - no evidence of cholecystitis. Intrahepatic and common bile ducts are normal caliber: CBD is 5 mm. The noncontrasted liver, both adrenal glands and pancreas are normal. Aorta is normal diameter with moderate scattered calcific plaque. 3 mm nonobstructing stone seen mid calyx the left kidney. 3-4 small low attenuation foci in both kidneys are unchanged and likely represent small cysts. Pelvic images show marked distention of the urinary bladder. Prostate and seminal vesicles are normal. There is no free air, free fluid or adenopathy. Moderate concentric wall thickening of the gastric antrum, pylorus, the entire duodenum and the proximal jejunum with inflammation in the adjacent fat is seen. Findings suggestive of inflammatory or infectious gastroenteritis. The remainder of the small bowel and large bowel are grossly normal with exception of sigmoid diverticulosis. The appendix is a 4-5 appendicoliths, but is normal diameter with no wall thickening. The bone windows show no osseous abnormality throughout the chest, abdomen or pelvis. IMPRESSION: 1. Moderate concentric wall thickening of the gastric antrum, pylorus, duodenum and proximal jejunum with inflammation in the adjacent fat suggesting gastroenteritis. 2. Cholelithiasis 3. Small bandlike region of consolidated atelectasis or infiltrate in the posterior right lower lobe with small bilateral pleural effusions. 4. Centrilobular emphysema and mild central pulmonary artery enlargement compatible with associated pulmonary hypertension. 5. Small paraumbilical hernia containing only mesenteric fat 6. Marked urinary bladder distention Interpreted and Authenticated by: Chris Pack 07/04/19
[2019-07-04] MEDS: 0.9 % SODIUM CHLORIDE 10 ML SYRINGE IV SCH ×3 (06:34→20:53)
[2019-07-04] MEDS: 0.9 % SODIUM CHLORIDE 250 ML IV SCH ×2 (07:27→23:05)
[2019-07-04] MEDS: DOCUSATE SODIUM 100 MG CAPSULE PO SCH ×2 (08:46→20:52)
[2019-07-04] MEDS: FAMOTIDINE 20 MG TABLET PO SCH ×3 (08:48→20:52)
[2019-07-04] MEDS ORDERED: sitaGLIPtin 100 MG TABLET PO SCH (09:00)
[2019-07-04] MEDS ORDERED: HEPARIN 5,000 UNIT/ML VIAL SQ SCH (09:00)
[2019-07-04] MEDS ORDERED: MULTIVIT,THER IRON,CA,FA & MIN 1 TABLET PO SCH (09:00)
[2019-07-04] MEDS ORDERED: THIAMINE 100 MG TABLET PO SCH (09:00)
[2019-07-04] MEDS: INSULIN LISPRO 1 UNIT/0.01 ML UNIT SQ SCH ×4 (09:18→20:53)
[2019-07-04] MEDS: BUDESONIDE 0.5 MG/2 ML AMPUL.NEB NEB SCH ×2 (09:32→19:46)
[2019-07-04] MEDS ORDERED: ALBUTEROL SULFATE 90 MCG INH PRN (11:07)
[2019-07-04] MEDS ORDERED: NITROGLYCERIN 0.4 MG TAB.SUBL SL PRN ×2 (11:07)
--- NOTE | 2019-07-04 11:16 | Internal Med Progress Note ---
Medical - PN: Subj Patient information: Note initiated : 07/04/19 at 11:12 am Service Date, if different from initiated Date: [] Patient: Ozzy Fox 69 y/o M admitted on 07/04/19 for chest pain, elevated HR. Chief Complaint: [] Interval history: Mr. Fox is a 69 year old M with no history of coronary artery disease status post CABG in and subsequently 2018 after cardiogenic shock. He has been his baseline state of health until over the last couple of days has been feeling weak with fatigue malaise and URI symptoms. Roughly 3 hours prior to presentation he started experiencing substernal chest pain along with associated nausea. pain described as sharp retrosternal without radiation associated with palpitation. No diaphoresis but associated nausea. Denies lightheadedness or dizziness. Denies fever shaking chills He presents to the ER with above symptoms. Initial work-up was consistent with A. fib with RVR, patient was started on diltiazem drip, initial white count was 24,[address] abdomen chest was performed which revealed right basilar infiltrate/pleural effusion. Subsequently hospitalist service was consulted At the time of evaluation patient is quite distressed. He complains of heartburn, fatigue. His chest pain has improved since. He denies dysuria, abdominal pain but endorses to few episodes of diarrhea. He denies diaphoresis/chest palpitations/lightheadedness/vision changes. Throughout the course of my evaluation patient demonstrated a flat affect 07/04-patient doing better. Improved sepsis. Paroxysmal atrial fibrillation with intermittent conversion to sinus and back in A. fib RVR improved on diltiazem drip at 15. Rate around 100. Was able to get out of bed with therapist, denies overnight fever chills. Home medications restarted. Persistent flat affect. Refusing some of the treatments offered including medications. - Constitutional Vitals: Vital Signs Temp Pulse Resp BP Pulse Ox 99.4 F H 100 H 26 H 157/85 93 07/04/19 05:00 07/04/19 09:45 07/04/19 11:01 07/04/19 11:01 07/04/19 11:01 Period Temp Pulse Resp BP Sys/[place] Pulse Ox Last 24 Hr 97.0 F-99.5 F 54-131 15-28 74-179/50-108 81-100 Intake and Output 07/03/19 07/04/19 07/04/19 21:59 05:59 13:59 Intake Total 7 131 44 Output Total 350 Balance 7 -219 44 Weight 176 lb 187 lb Intake & Output: Intake & Output 07/03/19 07/04/19 07/04/19 21:59 05:59 13:59 Intake Total 7 131 44 Output Total 350 Balance 7 -219 44 Weight 176 lb 187 lb Intake: IV 7 131 44 Sodium Chloride 0.9% 250 ml @ 31 20 mls/hr IV .[id number] [facility] Rx#: [id number] Cardizem 125 mg In Dextrose 5% 7 81 13 in Water 100 ml @ 5 MG/HR 5 mls /hr IV Q12H [facility] Rx#:[id number] Zosyn 3.375 gm In Dextrose 5% 50 in Water 50 ml @ 100 mls/hr IV Q6H [facility] Rx#:[id number] Oral 0 Output: Void Amount 350 Other: Urine Appearance Clear Urine Color Bright Yellow General appearance: no acute distress Exam: Flat affect No anxiety Irregular rhythm Systolic murmur grade 2 Diminished breath sounds/expiratory rhonchi Abdomen soft Medical - PN: Obj Da - Labs CBC & Chem 7: 07/03/19 17:30 07/03/19 17:29 Labs: Abnormal Lab Results 07/03/19 07/03/19 07/03/19 21:25 20:06 18:30 WBC RDW Gran % Lymph % (Auto) Gran # Stevens # (Auto) D-Dimer VBG Lactic Acid 2.2 H Chloride Anion Gap BUN Creatinine Glucose Total Creatine Kinase Myoglobin Troponin T 0.07 H* NT-Pro-B Natriuret Pep Urine Glucose (UA) 50 A Urine Ketones 20 A 07/03/19 07/03/19 07/03/19 17:30 17:30 17:30 WBC 24.3 H RDW 16.1 H Gran % 83.5 H Lymph % (Auto) 10.2 L Gran # 20.3 H Stevens # (Auto) 1.5 H D-Dimer 3.98 H VBG Lactic Acid Chloride Anion Gap BUN Creatinine Glucose Total Creatine Kinase Myoglobin Troponin T 0.11 H* NT-Pro-B Natriuret Pep Urine Glucose (UA) Urine Ketones 07/03/19 07/03/19 17:29 17:29 WBC RDW Gran % Lymph % (Auto) Gran # Stevens # (Auto) D-Dimer VBG Lactic Acid Chloride 95 L Anion Gap 17.0 H BUN 29 H Creatinine 1.3 H Glucose 241 H Total Creatine Kinase 277 H Myoglobin 194 H Troponin T NT-Pro-B Natriuret Pep 2894.0 H Urine Glucose (UA) Urine Ketones Meds: Medications Acetaminophen (Tylenol) 650 mg PO Q4-6HP PRN; Protocol PRN Reason: Per Pain Protocol/Fever > 101 Albuterol Sulfate (Ventolin) 2.5 mg NEB Q6HRT [facility] Albuterol/Ipratropium (Duoneb) 3 ml NEB Q4HRT [facility] Last Admin: 07/04/19 09:33 Dose: Not Given Documented by: Amlodipine Besylate (Norvasc) 5 mg PO DAILY [facility] Apixaban (Eliquis) 5 mg PO BID [facility] Bisacodyl (Dulcolax) 10 mg UT Q2-3DAYS PRN PRN Reason: Constipation Budesonide (Pulmicort) 0.5 mg NEB Q12 [facility] Last Admin: 07/04/19 09:32 Dose: 0.5 mg Documented by: Bupropion HCl (Wellbutrin) 100 mg PO BID [facility] Dextrose (Dextrose 50%) 0 ml IV UD PRN PRN Reason: Hypoglycemia Diagnostic Test (Pha) (Accu-Chek) 1 each FS ACHS [facility] Last Admin: 07/04/19 06:43 Dose: 1 each Documented by: Diltiazem HCl (Cardizem Cd) 120 mg PO DAILY [facility] Docusate Sodium (Colace) 100 mg PO BID [facility] Last Admin: 07/04/19 08:46 Dose: Not Given Documented by: Famotidine (Pepcid) 20 mg PO BID [facility] Last Admin: 07/04/19 08:48 Dose: Not Given Documented by: Furosemide (Lasix) 20 mg PO DAILY [facility] Gabapentin (Neurontin) 300 mg PO DAILY [facility] Glucose (Insta-Glucose) 15 gm PO PRN PRN PRN Reason: Hypoglycemia Heparin Sodium (Porcine) (Heparin) 5,000 unit SQ Q12 [facility] Last Admin: 07/04/19 09:18 Dose: 5,000 unit Documented by: Diltiazem HCl 125 mg/ Dextrose 125 mls @ 5 mls/hr IV Q12H [facility]; Protocol Last Titration: 07/04/19 09:00 Dose: 15 mg/hr, 15 mls/hr Documented by: Sodium Chloride (Sodium Chloride 0.9%) 1,000 mls @ 50 mls/hr IV .Q20H [facility] Stop: 07/06/19 13:15 Last Admin: 07/04/19 02:02 Dose: 50 mls/hr Documented by: Acetaminophen (Ofirmev) 650 mg in 65 mls @ 130 mls/hr IV Q6HP PRN; Protocol PRN Reason: Per Pain Protocol/Fever > 101 Magnesium Sulfate (Magnesium Sulfate) 2 gm in 50 mls @ 50 mls/hr IV UD PRN PRN Reason: MG = or < 1.7 Potassium Chloride 40 meq/ (Dextrose) 520 mls @ 130 mls/hr IV UD PRN PRN Reason: K+ = or < 3.5 Piperacillin Sod/Tazobactam (Sod 3.375 gm/ Dextrose) 50 mls @ 100 mls/hr IV Q6H [facility]; Protocol Last Admin: 07/04/19 09:15 Dose: Not Given Documented by: Sodium Chloride (Sodium Chloride 0.9%) 250 mls @ 20 mls/hr IV .[id number] [facility] Last Infusion: 07/04/19 09:00 Dose: 5 mls/hr Documented by: Insulin Glargine (Lantus) 20 unit SQ DAILY [facility] Insulin Human Lispro (Humalog) 0 unit SQ ACHS [facility]; Protocol Last Admin: 07/04/19 09:18 Dose: 2 unit Documented by: Iron Carb/Multivit/[place]/Folic Acid (Multivitamin W/Minerals) 1 tab PO DAILY [facility] Last Admin: 07/04/19 08:48 Dose: Not Given Documented by: Lisinopril (Zestril) 20 mg PO DAILY [facility] Magnesium Hydroxide (Milk Of Magnesia) 30 ml PO HSP PRN PRN Reason: Constipation Metoprolol Tartrate (Lopressor) 5 mg IV Q5M PRN PRN Reason: Heart Rate- High Last Admin: 07/04/19 06:34 Dose: 5 mg Documented by: Metoprolol Tartrate (Lopressor) 25 mg PO QDAY [facility] Nitroglycerin (Nitrostat) 0.4 mg SL Q5M PRN PRN Reason: Chest Pain Nitroglycerin (Nitrostat) 0.4 mg SL Q5M PRN PRN Reason: Chest Pain Non-Formulary Medication (Aspirin [Ecotrin]) 81 mg PO DAILY [facility] Non-Formulary Medication (Budesonide/Formoterol Fumarate [Symbicort 160-4.5 Mcg Inhaler]) 10.2 gm IH BID [facility] Non-Formulary Medication (Magnesium Oxide [Magnesium]) 500 mg PO BID [facility] Non-Formulary Medication (Albuterol Sulfate [Proair Respiclick]) 90 mcg IH QIDP PRN PRN Reason: Bronchospasm Ondansetron HCl (Zofran) 4 mg IV Q4-6HP PRN; Protocol PRN Reason: Nausea And Vomiting Oxybutynin Chloride (Ditropan Xl) 5 mg PO BID [facility] Potassium Chloride (Klor-Con) 40 meq PO DAILYP PRN PRN Reason: K+ < 3.5 Potassium Chloride (Kdur) 10 meq PO DAILY [facility] Senna/Docusate Sodium (Senna Plus Tablet) 1 tab PO HS [facility] Sitagliptin Phosphate (Januvia) 100 mg PO DAILY [facility] Last Admin: 07/04/19 08:48 Dose: Not Given Documented by: Sodium Chloride (Saline Flush) 10 ml IV Q8 [facility] Last Admin: 07/04/19 06:34 Dose: 10 ml Documented by: Tamsulosin HCl (Flomax) 0.4 mg PO HS [facility] Thiamine HCl (Vitamin B1) 100 mg PO DAILY [facility] Last Admin: 07/04/19 08:48 Dose: Not Given Documented by: Medical - PN: A/P - Time Spent With Patient Total time spent is greater than 50% in coordination of care (as documented) at patient's floor/unit and/or counseling patient: Greater than 35 minutes (1) Atrial fibrillation with rapid ventricular response Status: Acute Assessment and plan: * Atrial fibrillation with RVR-continue rate control measures. On diltiazem drip, transition to p.o. * Right lower lobe pneumonia-continue antibiotic coverage * Severe sepsis with multiple endorgan dysfunction and white count over 24,000. Close monitoring of hemodynamics. Continue crystalloids. * Acute gastroenteritis-continue supportive measures. * Mild HERMILO-continue monitoring renal function * History of CAD status post CABG X2 -elevated troponin but downtrending likely secondary to sepsis/A. fib RVR. Continue aspirin/apixaban/metoprolol/nitrate. Restart TEMI inhibitor * HTN-restart home meds * T2 DM on basal prandial insulin * COPD continue bronchodilators/inhaled steroids * History of BPH - continue Flomax * Neuropathy continue gabapentin * Anxiety continue bupropion * Bovine aortic valve replacement, stable * Full code * Prophylaxis on Eliquis Plan * Continue sepsis management per guidelines * Wean diltiazem drip and transition to oral diltiazem * Continue sepsis management per guidelines * Broad antibiotic coverage * Prior medical condition management home meds Current Visit: Yes Medical - PN: Qual - VTE Deep Vein Thrombosis/Pulmonary Embolism Present on Admission: No
[2019-07-04 12:09] LABS: Hematocrit 37.6 % (41.0-55.0); Hemoglobin 12.4 g/dL (13.5-16.5); Mean Cell Volume 86.8 fL (80.0-100.0); Mean Platelet Volume 7.7 fL (7.4-10.4); Platelet Count 215 K/mcL (140-440); RBC 4.33 M/mcL (4.50-5.90); WBC 16.4 K/mcL (4.5-11.0)
[2019-07-04 12:28] LABS: ALT/SGPT 12 U/l (0-40); AST/SGOT 18 U/l (0-37); Alkaline Phosphatase 68 U/L (39-117); Bilirubin,Direct < 0.2 mg/dL (0.0-0.3); Bilirubin,Total 0.4 mg/dL (0.0-1.0); Glucose 156 mg/dL (70-105); Lactate Dehydrogenase 224 U/L (94-250); Triglycerides 79 mg/dl (<150); Uric Acid 3.3 mg/dL (2.5-8.0)
[2019-07-04 12:43] LABS: Band Neutrophils % 8 % (0-10); Lymphocytes % 8 % (15-49); Monocytes % (Manual) 13 % (1-12); Platelet Estimate NORMAL (NORMAL); RBC Morphology NORMAL (NORMAL); Segmented Neutrophils % 71 % (38-78)
[2019-07-04 12:44] LABS: Albumin/Globulin Ratio 1.3 (1.0-2.3); Blood Urea Nitrogen 17 mg/dl (8-23); Calcium 7.4 mg/dl (8.6-10.4); Carbon Dioxide 17 mmol/L (22-30); Chloride 106 mmol/L (96-108); Globulin 2.3 gm/dL (2.2-3.7); Glomerular Filtration Rate 86; Phosphorous 1.8 mg/dL (2.7-4.5)
[2019-07-04] MEDS: MAG HYDROX/AL HYDROX/SIMETH 30 ML ORAL.SUSP PO PRN ×2 (15:30→19:24)
[2019-07-04] MEDS: ALBUTEROL SULFATE 2.5 MG/3 ML NEBULIZER NEB SCH ×2 (15:54→19:40)
[2019-07-04] MEDS ORDERED: amLODIPine 5 MG TABLET PO ONE (17:30)
[2019-07-04] MEDS ORDERED: LISINOPRIL 20 MG TABLET PO ONE (17:30)
[2019-07-04] MEDS ORDERED: MAGNESIUM SULFATE 2 GM/50 ML BAG IV ONE (20:34)
[2019-07-04] MEDS ORDERED: OXYBUTYNIN CHLORIDE 5 MG TAB.XL.24H PO SCH (21:00)
[2019-07-04] MEDS ORDERED: APIXABAN 5 MG TABLET PO SCH (21:00)
[2019-07-04] MEDS ORDERED: FORMOTEROL FUMARATE INH SCH (21:00)
[2019-07-04] MEDS ORDERED: SENNOSIDES/DOCUSATE SODIUM 1 TAB TABLET PO SCH (21:00)
[2019-07-04] MEDS ORDERED: MAGNESIUM OXIDE 400 MG TABLET PO SCH (21:00)
[2019-07-04] MEDS ORDERED: TAMSULOSIN 0.4 MG CAPSULE PO SCH (21:00)
[2019-07-04] MEDS ORDERED: BUDESONIDE INH SCH (21:00)
[2019-07-04] MEDS ORDERED: buPROPion 100 MG TABLET PO SCH (21:00)
[2019-07-04] MEDS ORDERED: AMIODARONE 150 MG/3 ML VIAL IV ONE (21:30)
[2019-07-04 22:25] LABS: Creatine Kinase MB 2.8 ng/ml (0-4.9)
[2019-07-04 22:27] LABS: Creatine Kinase 146 IU/L (24-195)
[2019-07-04] MEDS ORDERED: HEPARIN/D5W 500 ML IV ONE (22:37)
--- NOTE | 2019-07-04 22:44 | Transfer Summary ---
Transfer Discharge Sum: Prov Patient information: Note initiated : 07/04/19 at 10:42 pm Service Date, if different from initiated Date: [] Patient: Ozzy Fox 69 y/o M admitted on 07/04/19 for chest pain, elevated HR. Chief Complaint: [] Date of admission: 07/04/19 01:10 Discharge Date: 07/04/19 Consults: 07/04/19 08:04 Consult to Physician [CONS] Routine Comment: Consulting Provider: Devendra Bar Reason For Exam: Physician to Consult Discharging clinician: Devendra Bar Receiving physician/facility: [facility] Transfer Discharge Sum: Diag - Discharge Diagnosis (1) Atrial fibrillation with rapid ventricular response Status: Acute Problem details: Ventricular tachyarrhythmia Transfer Discharge Sum: Med - Medications Active and Home Medications: Home Medications Furosemide [Lasix] 20 mg PO DAILY 01/11/17 [History Confirmed 07/03/19] Gabapentin [Neurontin] 300 mg PO DAILY 01/11/17 [History Confirmed 07/03/19] Insulin Glargine, Human [Lantus] 20 unit SQ DAILY 01/11/17 [History Confirmed 07/03/19] Metoprolol Tartrate [Lopressor] 25 mg PO QDAY 01/11/17 [History Confirmed 07/03/19] Nitroglycerin [Nitrostat] 0.4 mg SL Q5M PRN 01/11/17 [History Confirmed 07/03/19] Oxybutynin Chloride [Ditropan Xl] 5 mg PO BID 01/11/17 [History Confirmed 07/03/19] Potassium Chloride [Kdur] 10 meq PO DAILY 01/11/17 [History Confirmed 07/03/19] Tamsulosin [Flomax] 0.4 mg PO HS 01/11/17 [History Confirmed 07/03/19] buPROPion [Wellbutrin] 100 mg PO BID 01/11/17 [History Confirmed 07/03/19] Apixaban [Eliquis] 5 mg PO BID 06/30/18 [History Confirmed 07/03/19] Albuterol Sulfate [Proair Respiclick] 90 mcg IH QIDP PRN 07/18/18 [History Confirmed 07/03/19] Albuterol Sulfate [Ventolin] 2.5 mg NEB Q6HRT 07/18/18 [History Confirmed 07/03/19] Aspirin [Ecotrin] 81 mg PO DAILY 07/18/18 [History Confirmed 07/03/19] Budesonide/Formoterol Fumarate [Symbicort 160-4.5 Mcg Inhaler] 10.2 gm IH BID 07/18/18 [History Confirmed 07/03/19] Diltiazem HCl [Cartia Xt] 120 mg PO DAILY 07/18/18 [History Confirmed 07/03/19] Lisinopril [Zestril] 20 mg PO DAILY 07/18/18 [History Confirmed 07/03/19] Magnesium Oxide [Magnesium] 500 mg PO BID 07/18/18 [History Confirmed 07/03/19] amLODIPine BESYLATE [Amlodipine Besylate] 5 mg PO DAILY 07/18/18 [History Confirmed 07/03/19] Nitroglycerin [Nitrostat] 0.4 mg SL Q5M PRN 07/20/18 [History Confirmed 07/03/19] Active Medications Acetaminophen (Tylenol) 650 mg PO Q4-6HP PRN; Protocol PRN Reason: Per Pain Protocol/Fever > 101 Al Hydrox/Mg Hydrox/Simethicone (Maalox) 30 ml PO Q4-6HP PRN PRN Reason: Dyspepsia Last Admin: 07/04/19 19:24 Dose: 30 ml Documented by: Albuterol Sulfate (Ventolin) 2.5 mg NEB Q6HRT [facility] Last Admin: 07/04/19 19:40 Dose: 2.5 mg Documented by: Amlodipine Besylate (Norvasc) 5 mg PO DAILY [facility] Apixaban (Eliquis) 5 mg PO BID [facility] Last Admin: 07/04/19 20:52 Dose: 5 mg Documented by: Aspirin (Aspirin) 81 mg PO DAILY [facility] Bisacodyl (Dulcolax) 10 mg SD Q2-3DAYS PRN PRN Reason: Constipation Budesonide (Pulmicort) 0.5 mg NEB Q12 [facility] Last Admin: 07/04/19 19:46 Dose: 0.5 mg Documented by: Bupropion HCl (Wellbutrin) 100 mg PO BID [facility] Last Admin: 07/04/19 20:52 Dose: 100 mg Documented by: Dextrose (Dextrose 50%) 0 ml IV UD PRN PRN Reason: Hypoglycemia Diagnostic Test (Pha) (Accu-Chek) 1 each FS ACHS [facility] Last Admin: 07/04/19 20:53 Dose: 1 each Documented by: Diltiazem HCl (Cardizem Cd) 120 mg PO DAILY [facility] Docusate Sodium (Colace) 100 mg PO BID [facility] Last Admin: 07/04/19 20:52 Dose: 100 mg Documented by: Famotidine (Pepcid) 20 mg PO BID [facility] Last Admin: 07/04/19 20:52 Dose: 20 mg Documented by: Furosemide (Lasix) 20 mg PO DAILY [facility] Gabapentin (Neurontin) 300 mg PO DAILY [facility] Glucose (Insta-Glucose) 15 gm PO PRN PRN PRN Reason: Hypoglycemia Sodium Chloride (Sodium Chloride 0.9%) 1,000 mls @ 50 mls/hr IV .Q20H [facility] Stop: 07/06/19 13:15 Last Admin: 07/04/19 21:53 Dose: Not Given Documented by: Acetaminophen (Ofirmev) 650 mg in 65 mls @ 130 mls/hr IV Q6HP PRN; Protocol PRN Reason: Per Pain Protocol/Fever > 101 Magnesium Sulfate (Magnesium Sulfate) 2 gm in 50 mls @ 50 mls/hr IV UD PRN PRN Reason: MG = or < 1.7 Potassium Chloride 40 meq/ (Dextrose) 520 mls @ 130 mls/hr IV UD PRN PRN Reason: K+ = or < 3.5 Piperacillin Sod/Tazobactam (Sod 3.375 gm/ Dextrose) 50 mls @ 100 mls/hr IV Q6H [facility]; Protocol Last Infusion: 07/04/19 18:22 Dose: Infused Documented by: Sodium Chloride (Sodium Chloride 0.9%) 250 mls @ 20 mls/hr IV .[id number] [facility] Last Infusion: 07/04/19 20:40 Dose: 15 mls/hr Documented by: Diltiazem HCl 125 mg/ Dextrose 125 mls @ 15 mls/hr IV Q8H [facility]; Protocol Last Titration: 07/04/19 22:04 Dose: 0 mg/hr, 0 mls/hr Documented by: Insulin Glargine (Lantus) 20 unit SQ DAILY [facility] Insulin Human Lispro (Humalog) 0 unit SQ ACHS [facility]; Protocol Last Admin: 07/04/19 20:53 Dose: Not Given Documented by: Iron Carb/Multivit/Reader/Folic Acid (Multivitamin W/Minerals) 1 tab PO DAILY [facility] Last Admin: 07/04/19 08:48 Dose: Not Given Documented by: Lisinopril (Zestril) 20 mg PO DAILY [facility] Magnesium Hydroxide (Milk Of Magnesia) 30 ml PO HSP PRN PRN Reason: Constipation Magnesium Oxide (Magnesium Oxide) 400 mg PO BID [facility] Last Admin: 07/04/19 20:52 Dose: 400 mg Documented by: Metoprolol Tartrate (Lopressor) 5 mg IV Q5M PRN PRN Reason: Heart Rate- High Last Admin: 07/04/19 06:34 Dose: 5 mg Documented by: Metoprolol Tartrate (Lopressor) 25 mg PO QDAY [facility] Nitroglycerin (Nitrostat) 0.4 mg SL Q5M PRN PRN Reason: Chest Pain Last Admin: 07/04/19 21:10 Dose: 0.4 mg Documented by: Nitroglycerin (Nitrostat) 0.4 mg SL Q5M PRN PRN Reason: Chest Pain Budesonide/Formoterol Fumarate [Symbicort 160-4.5] Inh 1 gm INH BID [facility] Last Admin: 07/04/19 20:53 Dose: Not Given Documented by: Ondansetron HCl (Zofran) 4 mg IV Q4-6HP PRN; Protocol PRN Reason: Nausea And Vomiting Oxybutynin Chloride (Ditropan Xl) 5 mg PO BID [facility] Last Admin: 07/04/19 20:52 Dose: 5 mg Documented by: Albuterol Sulfate [ Proair Respiclick] 90 Mcg 1 dose INH QIDP PRN PRN Reason: Bronchospasm Potassium Chloride (Klor-Con) 40 meq PO DAILYP PRN PRN Reason: K+ < 3.5 Potassium Ch[facility] ([facility]ur) [facility] Senna/Docusate Sodium (Senna Plus Tablet) 1 tab PO HS [facility] Last Admin: 07/04/19 20:52 Dose: 1 tab Documented by: Sitagliptin Phosphate (Januvia) 100 mg PO DAILY [facility] Last Admin: 07/04/19 08:48 Dose: Not Given Documented by: Sodium Chloride (Saline Flush) 10 ml IV Q8 [facility] Last Admin: 07/04/19 20:53 Dose: Not Given Documented by: Tamsulosin HCl (Flomax) 0.4 mg PO HS [facility] Last Admin: 07/04/19 20:52 Dose: 0.4 mg Documented by: Thiamine HCl (Vitamin B1) 100 mg PO DAILY [facility] Last Admin: 07/04/19 08:48 Dose: Not Given Documented by: Transfer Discharge Sum: Hosp Hospital course: Transfer diagnosis * Active chest pain, unstable angina-start heparin drip. EKG shows ST depression anterior leads. Cardiology consulted. Transferred to [facility] Dr. [facility] Cam[facility]. * Ventricular tachyarrhythmia-2 episodes one lasting 7 seconds followed by one lasting 26 seconds with hemodynamic changes hypotension and mental status change, however patient's back to baseline shortly after conversion to narrow complex a flutter rhythm. Start amiodarone load/morphine for chest pain/4000 units heparin bolus followed by 1200/h drip as per cardiology recommendations. Transferring to [facility] for further management * Atrial fibrillation with RVR-initially rate controlled on diltiazem. Now status post amiodarone 150 bolus * Right lower lobe pneumonia-continue Zosyn * Severe sepsis with endorgan dysfunction clinically improved with downtrending white count on antibiotics. * Acute gastroenteritis as evident on CT-continue supportive measures. * Mild HERMILO-continue monitoring renal function * History of CAD status post CABG followed by recent PCI 2018-downtrending troponin however now active chest pain but downtrending likely secondary to sepsis/A. fib RVR. * HTN-on home meds * T2 DM on basal prandial insulin * COPD continue bronchodilators/inhaled steroids * History of BPH -managed on Flomax * Neuropathy managed on gabapentin * Anxiety stable on bupropion * Bovine aortic valve replacement, stable Brief hospital course Mr. Fox is a 69 year old M with no history of coronary artery disease status post CABG in and subsequently 2018 after cardiogenic shock. He has been his baseline state of health until over the last couple of days has been feeling weak with fatigue malaise and URI symptoms. Roughly 3 hours prior to presentation he started experiencing substernal chest pain along with associated nausea. pain described as sharp retrosternal without radiation associated with palpitation. No diaphoresis but associated nausea. Denies lightheadedness or dizziness. Denies fever shaking chills He presents to the ER with above symptoms. Initial work-up was consistent with A. fib with RVR, patient was started on diltiazem drip, initial white count was 24,[address] abdomen chest was performed which revealed right basilar infiltrate/pleural effusion. Subsequently hospitalist service was consulted At the time of evaluation patient is quite distressed. He complains of heartburn, fatigue. His chest pain has improved since. He denies dysuria, abdominal pain but endorses to few episodes of diarrhea. He denies diaphoresis/chest palpitations/lightheadedness/vision changes. Throughout the course of my evaluation patient demonstrated a flat affect 07/04-patient doing better. Improved sepsis. Paroxysmal atrial fibrillation with intermittent conversion to sinus and back in A. fib RVR improved on diltiazem drip at 15. Rate around 100. Was able to get out of bed with therapist, denies overnight fever chills. Home medications restarted. Persistent flat affect. Refusing some of the treatments offered including medications. 07/04 10:40 PM- Runs of V. tach including 7-second followed by 26-second. Magnesium IV followed by 150 mg amiodarone/morphine. Diltiazem drip held. Patient already on aspirin/apixaban. Case discussed with [facility] followed by [facility] who recommended initiating heparin drip per protocol. Patient accepted by [facility] cardiology at [facility] for further management. Transfer via ambulance - Time Spent with Patient Total time spent providing and/or coordinating transfer services: Greater than 30 minutes Transfer Discharge Sum: Exam - Constitutional Vitals: Vital Signs Temp Pulse Resp BP Pulse Ox 07/04/19 21:51 17 132/55 97 07/04/19 21:46 0 L 124/61 96 07/04/19 21:42 20 138/65 95 07/04/19 21:31 21 115/55 94 07/04/19 21:25 21 104/56 91 07/04/19 21:21 30 H 83/47 92 07/04/19 21:01 28 H 138/63 93 07/04/19 20:31 27 H 147/59 94 07/04/19 20:28 24 H 140/63 91 07/04/19 20:17 27 H 138/60 95 07/04/19 20:01 98.4 F 24 H 135/69 100 07/04/19 19:40 85 18 07/04/19 19:34 25 H 130/71 93 18/19 19:30 94 18/19 19:01 23 H 151/60 93 18/19 18:31 26 H 157/68 91 1819 18:01 25 H 125/93 07/04/19 17:31 21 178/59 96 1819 17:01 24 H 146/72 96 07/04/19 16:31 23 H 160/66 93 07/04/19 16:01 99.2 F H 24 H 148/67 07/04/19 15:31 24 H 149/70 91 07/04/19 15:03 93 H 24 H 07/04/19 15:01 23 H 163/65 95 07/04/19 14:31 25 H 152/69 93 07/04/19 14:01 25 H 156/65 94 07/04/19 14:00 25 H 96 07/04/19 13:31 25 H 156/74 94 07/04/19 13:01 20 139/82 94 07/04/19 12:31 25 H 149/73 95 07/04/19 12:01 25 H 150/81 95 07/04/19 11:31 23 H 148/73 94 07/04/19 11:01 26 H 157/85 93 07/04/19 10:31 24 H 148/78 90 07/04/19 10:01 23 H 147/66 96 07/04/19 09:45 100 H 21 07/04/19 09:31 17 150/69 95 07/04/19 09:01 28 H 130/60 94 07/04/19 08:31 23 H 134/108 97 18 08:01 25 H 125/68 95 07/04/19 08:00 25 H 96 07/04/19 07:31 20 140/71 93 07/04/19 07:01 107 H 26 H 137/80 95 07/04/19 06:31 93 H 23 H 154/67 93 07/04/19 06:01 91 H 23 H 150/62 95 07/04/19 05:31 88 25 H 144/70 95 07/04/19 05:01 91 H 21 145/56 95 07/04/19 05:00 99.4 F H 07/04/19 04:31 87 27 H 149/65 93 07/04/19 04:01 84 22 148/59 96 07/04/19 03:16 82 20 157/61 95 07/04/19 03:05 85 21 96 07/04/19 03:01 81 22 146/61 94 07/04/19 02:46 81 22 150/62 95 07/04/19 02:31 82 22 137/69 96 07/04/19 02:16 82 25 H 150/72 97 07/04/19 02:01 82 21 145/65 96 07/04/19 01:46 85 22 179/64 97 07/04/19 01:31 80 15 144/67 100 07/04/19 01:26 79 23 H 167/63 98 07/04/19 01:19 97.0 F 78 27 H 134/64 97 07/04/19 01:10 99.5 F H 23 H 96 07/04/19 01:01 79 24 H 141/86 96 07/04/19 00:43 78 27 H 97 07/04/19 00:31 82 20 134/64 95 07/04/19 00:16 84 22 133/75 93 07/04/19 00:15 81 26 H 93 07/04/19 00:01 80 26 H 134/89 91 07/03/19 23:46 80 28 H 133/99 98 07/03/19 23:33 86 24 H 134/64 95 07/03/19 23:16 94 H 28 H 145/72 95 07/03/19 23:13 84 20 133/78 95 Intake and Output 07/04/19 07/04/19 07/05/19 13:59 21:59 05:59 Intake Total 94 292 1 Output Total 800 975 Balance -643 -526 1 Intake: IV 94 292 1 Sodium Chloride 0.9% 250 ml @ 31 58 20 mls/hr IV .[id number] [facility] Rx#: [id number] Cardizem 125 mg In Dextrose 5% 13 184 1 in Water 100 ml @ 15 MG/HR 15 mls/hr IV Q8H [facility] Rx#:[id number] Zosyn 3.375 gm In Dextrose 5% 50 50 in Water 50 ml @ 100 mls/hr IV Q6H [facility] Rx#:[id number] Output: Void Amount 800 975 Other: Meal Lunch Percent of Meal Consumed 0% Feeding Ability Independent Urine Appearance Clear Clear Urine Color Bright Yellow Dark Yellow Urine Odor Normal Normal Weight 183 lb Patient Weight 07/05/19 05:59 Weight 183 lb Transfer Discharge Sum: Data Procedures and tests throughout hospitalization: Inpatient Panel DAILY Transfer Discharge Sum: A/P - Problem Maintenance (1) Atrial fibrillation with rapid ventricular response Status: Acute - Plan Functional capacity at transfer: bed bound Overall status at transfer: patient is not back to baseline Disposition: Xfer [facility] Quality Measure Queries - VTE Deep Vein Thrombosis/Pulmonary Embolism Present on Admission: No
[2019-07-04] MEDS ORDERED: HEPARIN 5,000 UNIT/ML VIAL ONE (22:47)
[2019-07-04] MEDS ORDERED: HEPARIN/D5W 25,000 UNIT in PREMIX 1 BAG IV SCH (23:00)
[2019-07-05] MEDS: DILTIAZEM 125 MG in DEXTROSE 5% IN WATER 100 ML IV SCH (00:10)
[2019-07-05] MEDS: ALBUTEROL SULFATE 2.5 MG/3 ML NEBULIZER NEB SCH (01:41)
[2019-07-05] MEDS ORDERED: POTASSIUM CHLORIDE 10 MEQ TABLET PO SCH (08:00)
[2019-07-05] MEDS ORDERED: LISINOPRIL 20 MG TABLET PO SCH (09:00)
[2019-07-05] MEDS ORDERED: DILTIAZEM 120 MG CAP.XL.24H PO SCH (09:00)
[2019-07-05] MEDS ORDERED: METOPROLOL TARTRATE 50 MG TABLET PO SCH (09:00)
[2019-07-05] MEDS ORDERED: amLODIPine 5 MG TABLET PO SCH (09:00)
[2019-07-05] MEDS ORDERED: GABAPENTIN 300 MG CAPSULE PO SCH (09:00)
[2019-07-05] MEDS ORDERED: ASPIRIN 81 MG TAB.CHEW PO SCH (09:00)
[2019-07-05] MEDS ORDERED: INSULIN GLARGINE, HUMAN 1 UNIT/0.01 ML SQ SCH (09:00)
[2019-07-05] MEDS ORDERED: FUROSEMIDE 40 MG TABLET PO SCH (09:00)
== END 2019-07-05 01:00 | disposition short-term general hospital (02) | DRG 871 ==
LOC: ED 17:15 → ICU 07-04 01:10
PROVIDERS: ADMIT Internal Medicine; ATTEND Internal Medicine